=== PATIENT | female | born 1935 | race Caucasian/White ===

== ENCOUNTER 2016-04-04 10:33 | Emergency (ER) | payer MEDICARE, OTHER ==
--- NOTE | 2016-04-04 12:32 | EDDOCDS ---
Nurse's Notes [facility] Name: Portia Clemons Age: 80 yrs Sex: Female : 1935 Arrival Date: 04/04/2016 Time: 10:33 Bed TR8 Private MD: Alexis Lombardi A. Diagnosis: Acute upper respiratory infection, unspecified;Acute bronchospasm-bronchitis;Abnormal blood-pressure reading, without diagnosis Presentation: 04/04 10:45 Presenting complaint: Presenting complaint: Patient states: c/o "chest cold" since ead Monday. reports cough, non-productive, nasal congestion. 10:46 Adult Sepsis Screening: The patient does not have new or worsening altered mentation. ead Patient's respiratory rate is less than 22. Systolic blood pressure is greater than 100. Patient has a qSOFA score of 0- Negative Sepsis Screen. Suicide/Homicide risk assessment- the patient denies having any suicidal and/or homicidal ideations and does not present with any other emotional, behavioral or mental health complaints. Status: Patient is not a chief service dispatcher or dependent. Transition of care: patient was not received from another setting of care. 10:46 Acuity: ARIANNA Level 4 ead 10:46 Method Of Arrival: Walkin/Carried/Asstd ead Triage Assessment: 10:51 General: Appears in no apparent distress, comfortable, Behavior is appropriate for age, ead cooperative. Pain: Denies pain. Neurological: No deficits noted. Cardiovascular: Chest pain is denied. Respiratory: Onset: The symptoms/episode began/occurred 3 days ago, Reports cough that is non-productive, Denies shortness of breath. Derm: Skin is pink, warm & dry. Historical: - Allergies: no known allergies; - Home Meds: 1. Lipitor 10 mg Oral tab once daily 2. Jana Aspirin 325 mg oral tab 1 tab once daily 3. calcitonin (salmon) 200 unit/actuation nasal spry 1 spray daily 4. Vitamin D Oral 2000 unit daily 5. calcium 500 mg daily 6. Nexium 40 mg Oral cpDR once daily - PMHx: Hypertension; Hypercholesterolemia; - PSHx: Adenoidectomy; Tonsillectomy; Cholecystectomy; Hysterectomy; - Social history: Smoking status: Patient states former smoker of tobacco. No barriers to communication noted, The patient speaks fluent Lao, Speaks appropriately for age. - Family history: Not pertinent. - : The pt / caregiver states he / she is not on anticoagulants. Home medication list is obtained from the patient, [employer] import data. - Exposure Risk Screening:: None identified. Screenin:29 Screening information is obtained from the patient. Fall risk: No risks identified. ms18 Assistance ADL's: requires no assistance with activities of daily living. Abuse/DV Screen: The patient / caregiver reports he/she is: not in a situation that causes fear, pain or injury. Nutritional screening: No deficits noted. Advance Directives: There is no living will. home support is adequate. Assessment: 12:29 General: Appears in no apparent distress, comfortable, Behavior is appropriate for age, ms18 cooperative, pleasant. Pain: Denies pain. Neurological: Level of Consciousness is awake, alert, obeys commands, Oriented to person, place, time. EENT: Reports nasal congestion nasal discharge. Cardiovascular: Capillary refill < 3 seconds Chest pain is denied. Respiratory: Airway is patent Respiratory effort is even, unlabored, Breath sounds are clear bilaterally. Reports cough that is. Derm: Skin is pink, warm & dry. Vital Signs: 10:35 BP 188 / 86; Pulse 77; Resp 18 S; Temp 96.7(O); Pulse Ox 97% on R/A; Weight 63.5 kg dd6 (R); Height 5 ft. 2 in. (157.48 cm) (R); 11:50 BP 170 / 90 RA Sitting (man/reg); ar3 10:35 Body Mass Index 25.61 (63.50 kg, 157.48 cm) dd6 Vitals: 10:35 Log In Time: April 04, 2016 at 10:33. dd6 ED Course: 10:35 Patient visited by Marin Alexis PCA. dd6 10:35 Alexis Lombardi is Private Physician. dd6 10:35 Patient moved to Waiting dd6 10:36 Patient moved to Pre RCE dd6 10:47 Triage Initiated ead 11:12 Patient moved to Triage 2 ms18 11:31 [facility]ost[facility]. ar2 11:31 Erin Figueredo MD is Attending Physician. ar2 11:31 Patient visited by Aashish Crisostomo PA-C. ar2 11:50 Patient visited by Cydney Garza PCA. ar3 12:21 Alexis Lombardi is Referral Physician. ar2 12:29 Patient moved to TR8 ms18 12:29 The patient / caregiver is instructed regarding the plan of care and ED course. ms18 Accompanied by Family Member, Patient has correct armband on for positive identification. Property sent home with patient. :Personal belongings accompany Pt. 12:29 No IV's were initiated during this patient's visit. No procedures done that require ms18 assistance. Order Results: There are currently no results for this order. Outcome: 12:21 Discharge ordered by Provider. ar2 12:29 Discharge Assessment: Patient awake, alert and oriented x 3. No cognitive and/or ms18 functional deficits noted. Patient verbalized understanding of disposition instructions. patient administered narcotics - no. The following High Risk Discharge criteria are identified: None. Discharged to home ambulatory. Condition: good Condition: stable Condition: improved. Discharge instructions given to patient, Instructed on discharge instructions, follow up and referral plans. medication usage, Demonstrated understanding of instructions, medications, Pt was receptive of discharge instructions/ teaching. Prescriptions given X 4. No special radiology studies were completed. 12:31 Patient left the ED. ms18 Signatures: Aashish Crisostomo PA-C PA-C ar2 Marin Alexis, FISH EGG PACKER FISH EGG PACKER dd6 Cydney Garza, FISH EGG PACKER FISH EGG PACKER ar3 Ira Sethi,RN Margarette Zuleta RN RN ms18 Corrections: (The following items were deleted from the chart) 10:47 10:45 Presenting complaint: ead ead MTDMehran
--- NOTE | 2016-04-04 12:32 | EDDOCDS ---
Physician Documentation [facility] Name: Portia Clemons Age: 80 yrs Sex: Female : 1935 Arrival Date: 04/04/2016 Time: 10:33 Bed TR8 Private MD: Alexis Lombardi A. Disposition: 04/04/16 12:21 Discharged to Home/Self Care. Impression: Acute upper respiratory infection, unspecified, Acute bronchospasm - bronchitis, Abnormal blood-pressure reading, without diagnosis. - Condition is Stable. - Discharge Instructions: Acute Bronchitis, Upper Respiratory Infection, Adult, Managing Your High Blood Pressure. - Prescriptions for Mucinex 600 mg - take 1 tablet by ORAL route 2 times per day; 30 tablet. benzonatate 200 mg Oral Capsule - take 1 capsule by ORAL route 3 times per day As needed; 30 capsule. Fluticasone 50 mcg/actuation Nasal [place], Suspension - inhale 2 spray by INTRANASAL route once daily; 1 bottle. Albuterol Sulfate 90 mcg/actuation Inhalation HFA Aerosol Inhaler - inhale 2 puff by INHALATION route every 4 hours As needed; 1 Inhaler. - Medication Reconciliation, Local Pharmacy Hours form. - Follow up: Alexis Lombardi; When: 2 - 3 days; Reason: Recheck today's complaints, Continuance of care. Follow up: Emergency Department; When: As needed; Reason: Fever > 102F, Trouble breathing, Worsening of conditions, severe headache, blurry vision, chest pain. - Problem is new. - Symptoms are unchanged. - Notes: AVOID ALL DECONGESTANTS AT THIS TIME Historical: - Allergies: no known allergies; - Home Meds: 1. Lipitor 10 mg Oral tab once daily 2. Jana Aspirin 325 mg oral tab 1 tab once daily 3. calcitonin (salmon) 200 unit/actuation nasal spry 1 spray daily 4. Vitamin D Oral 2000 unit daily 5. calcium 500 mg daily 6. Nexium 40 mg Oral cpDR once daily - PMHx: Hypertension; Hypercholesterolemia; - PSHx: Adenoidectomy; Tonsillectomy; Cholecystectomy; Hysterectomy; - Social history: Smoking status: Patient states former smoker of tobacco. No barriers to communication noted, The patient speaks fluent Finnish, Speaks appropriately for age. - Family history: Not pertinent. - : The pt / caregiver states he / she is not on anticoagulants. Home medication list is obtained from the patient, [employer] import data. - Exposure Risk Screening:: None identified. Vital Signs: 04/04 10:35 BP 188 / 86; Pulse 77; Resp 18 S; Temp 96.7(O); Pulse Ox 97% on R/A; Weight 63.5 kg / dd6 139.99 lbs (R); Height 5 ft. 2 in. (157.48 cm) (R); 11:50 BP 170 / 90 RA Sitting (man/reg); ar3 10:35 Body Mass Index 25.61 (63.50 kg, 157.48 cm) dd6 MDM: 11:45 Vital Signs ordered. ar2 12:00 Financial registration complete. lg Signatures: Imani Fountain, Reg Reg lg Aashish Crisostomo PA-C PA-C ar2 Ira Sethi,RN RN ead Margarette KimRN RN ms18 MTDD
--- NOTE | 2016-04-06 13:32 | EDDOCDS ---
Physician Documentation [facility] Name: Portia Clemons Age: 80 yrs Sex: Female : 1935 Arrival Date: 04/04/2016 Time: 10:33 Bed TR8 Private MD: Alexis Lombardi A. Disposition: 04/04/16 12:21 Discharged to Home/Self Care. Impression: Acute upper respiratory infection, unspecified, Acute bronchospasm - bronchitis, Abnormal blood-pressure reading, without diagnosis. - Condition is Stable. - Discharge Instructions: Acute Bronchitis, Upper Respiratory Infection, Adult, Managing Your High Blood Pressure. - Prescriptions for Mucinex 600 mg - take 1 tablet by ORAL route 2 times per day; 30 tablet. benzonatate 200 mg Oral Capsule - take 1 capsule by ORAL route 3 times per day As needed; 30 capsule. Fluticasone 50 mcg/actuation Nasal [place], Suspension - inhale 2 spray by INTRANASAL route once daily; 1 bottle. Albuterol Sulfate 90 mcg/actuation Inhalation HFA Aerosol Inhaler - inhale 2 puff by INHALATION route every 4 hours As needed; 1 Inhaler. - Medication Reconciliation, Local Pharmacy Hours form. - Follow up: Alexis Lombardi; When: 2 - 3 days; Reason: Recheck today's complaints, Continuance of care. Follow up: Emergency Department; When: As needed; Reason: Fever > 102F, Trouble breathing, Worsening of conditions, severe headache, blurry vision, chest pain. - Problem is new. - Symptoms are unchanged. - Notes: AVOID ALL DECONGESTANTS AT THIS TIME Historical: - Allergies: no known allergies; - Home Meds: 1. Lipitor 10 mg Oral tab once daily 2. Jnaa Aspirin 325 mg oral tab 1 tab once daily 3. calcitonin (salmon) 200 unit/actuation nasal spry 1 spray daily 4. Vitamin D Oral 2000 unit daily 5. calcium 500 mg daily 6. Nexium 40 mg Oral cpDR once daily - PMHx: Hypertension; Hypercholesterolemia; - PSHx: Adenoidectomy; Tonsillectomy; Cholecystectomy; Hysterectomy; - Social history: Smoking status: Patient states former smoker of tobacco. No barriers to communication noted, The patient speaks fluent Stateless, Speaks appropriately for age. - Family history: Not pertinent. - : The pt / caregiver states he / she is not on anticoagulants. Home medication list is obtained from the patient, [employer] import data. - Exposure Risk Screening:: None identified. Vital Signs: 04/04 10:35 BP 188 / 86; Pulse 77; Resp 18 S; Temp 96.7(O); Pulse Ox 97% on R/A; Weight 63.5 kg / dd6 139.99 lbs (R); Height 5 ft. 2 in. (157.48 cm) (R); 11:50 BP 170 / 90 RA Sitting (man/reg); ar3 10:35 Body Mass Index 25.61 (63.50 kg, 157.48 cm) dd6 MDM: 11:45 Vital Signs ordered. ar2 12:00 Financial registration complete. lg 13:39 [facility] Payment Agreement was scanned into [employer] and attached to record. lg 14:47 T-Sheet-- Draft Copy was scanned into [employer] and attached to record. gb Signatures: Latisha Alvarenga, Reg Reg gb Imani Fountain, Reg Reg lg Aashish Crisostomo PA-C PA-C ar2 Ira Sethi,RN RN Margarette Krueger RN RN ms18 The chart was reviewed and I authenticate all verbal orders and agree with the evaluation and treatment provided.Attachments: 13:39 [facility] Payment Agreement lg 14:47 T-Sheet-- Draft Copy gb Chart Complete MTDD
--- NOTE | 2016-04-06 13:32 | EDDOCDS ---
Physician Documentation [facility] Name: Portia Clemons Age: 80 yrs Sex: Female : 1935 Arrival Date: 04/04/2016 Time: 10:33 Bed TR8 Private MD: Alexis Lombardi A. Disposition: 04/04/16 12:21 Discharged to Home/Self Care. Impression: Acute upper respiratory infection, unspecified, Acute bronchospasm - bronchitis, Abnormal blood-pressure reading, without diagnosis. - Condition is Stable. - Discharge Instructions: Acute Bronchitis, Upper Respiratory Infection, Adult, Managing Your High Blood Pressure. - Prescriptions for Mucinex 600 mg - take 1 tablet by ORAL route 2 times per day; 30 tablet. benzonatate 200 mg Oral Capsule - take 1 capsule by ORAL route 3 times per day As needed; 30 capsule. Fluticasone 50 mcg/actuation Nasal [place], Suspension - inhale 2 spray by INTRANASAL route once daily; 1 bottle. Albuterol Sulfate 90 mcg/actuation Inhalation HFA Aerosol Inhaler - inhale 2 puff by INHALATION route every 4 hours As needed; 1 Inhaler. - Medication Reconciliation, Local Pharmacy Hours form. - Follow up: Alexis Lombardi; When: 2 - 3 days; Reason: Recheck today's complaints, Continuance of care. Follow up: Emergency Department; When: As needed; Reason: Fever > 102F, Trouble breathing, Worsening of conditions, severe headache, blurry vision, chest pain. - Problem is new. - Symptoms are unchanged. - Notes: AVOID ALL DECONGESTANTS AT THIS TIME Historical: - Allergies: no known allergies; - Home Meds: 1. Lipitor 10 mg Oral tab once daily 2. Jana Aspirin 325 mg oral tab 1 tab once daily 3. calcitonin (salmon) 200 unit/actuation nasal spry 1 spray daily 4. Vitamin D Oral 2000 unit daily 5. calcium 500 mg daily 6. Nexium 40 mg Oral cpDR once daily - PMHx: Hypertension; Hypercholesterolemia; - PSHx: Adenoidectomy; Tonsillectomy; Cholecystectomy; Hysterectomy; - Social history: Smoking status: Patient states former smoker of tobacco. No barriers to communication noted, The patient speaks fluent Russian, Speaks appropriately for age. - Family history: Not pertinent. - : The pt / caregiver states he / she is not on anticoagulants. Home medication list is obtained from the patient, [employer] import data. - Exposure Risk Screening:: None identified. Vital Signs: 04/04 10:35 BP 188 / 86; Pulse 77; Resp 18 S; Temp 96.7(O); Pulse Ox 97% on R/A; Weight 63.5 kg / dd6 139.99 lbs (R); Height 5 ft. 2 in. (157.48 cm) (R); 11:50 BP 170 / 90 RA Sitting (man/reg); ar3 10:35 Body Mass Index 25.61 (63.50 kg, 157.48 cm) dd6 MDM: 11:45 Vital Signs ordered. ar2 12:00 Financial registration complete. lg 13:39 [facility] Payment Agreement was scanned into [employer] and attached to record. lg 14:47 T-Sheet-- Draft Copy was scanned into [employer] and attached to record. gb Signatures: Latisha Alvarenga, Reg Reg gb Imani Fountain, Reg Reg lg Aashish Crisostomo PA-C PA-C ar2 Ira Sethi,RN RN Margarette Krueger RN RN ms18 The chart was reviewed and I authenticate all verbal orders and agree with the evaluation and treatment provided.Attachments: 13:39 [facility] Payment Agreement lg 14:47 T-Sheet-- Draft Copy gb Chart Complete MTDD
--- NOTE | 2016-04-06 13:32 | EDDOCDS ---
Nurse's Notes [facility] Name: Portia Clemons Age: 80 yrs Sex: Female : 1935 Arrival Date: 04/04/2016 Time: 10:33 Bed TR8 Private MD: Alexis Lombardi A. Diagnosis: Acute upper respiratory infection, unspecified;Acute bronchospasm-bronchitis;Abnormal blood-pressure reading, without diagnosis Presentation: 04/04 10:45 Presenting complaint: Presenting complaint: Patient states: c/o "chest cold" since ead Monday. reports cough, non-productive, nasal congestion. 10:46 Adult Sepsis Screening: The patient does not have new or worsening altered mentation. ead Patient's respiratory rate is less than 22. Systolic blood pressure is greater than 100. Patient has a qSOFA score of 0- Negative Sepsis Screen. Suicide/Homicide risk assessment- the patient denies having any suicidal and/or homicidal ideations and does not present with any other emotional, behavioral or mental health complaints. Status: Patient is not a client sales and service officer or dependent. Transition of care: patient was not received from another setting of care. 10:46 Acuity: ARIANNA Level 4 ead 10:46 Method Of Arrival: Walkin/Carried/Asstd ead Triage Assessment: 10:51 General: Appears in no apparent distress, comfortable, Behavior is appropriate for age, ead cooperative. Pain: Denies pain. Neurological: No deficits noted. Cardiovascular: Chest pain is denied. Respiratory: Onset: The symptoms/episode began/occurred 3 days ago, Reports cough that is non-productive, Denies shortness of breath. Derm: Skin is pink, warm & dry. Historical: - Allergies: no known allergies; - Home Meds: 1. Lipitor 10 mg Oral tab once daily 2. Jana Aspirin 325 mg oral tab 1 tab once daily 3. calcitonin (salmon) 200 unit/actuation nasal spry 1 spray daily 4. Vitamin D Oral 2000 unit daily 5. calcium 500 mg daily 6. Nexium 40 mg Oral cpDR once daily - PMHx: Hypertension; Hypercholesterolemia; - PSHx: Adenoidectomy; Tonsillectomy; Cholecystectomy; Hysterectomy; - Social history: Smoking status: Patient states former smoker of tobacco. No barriers to communication noted, The patient speaks fluent South African, Speaks appropriately for age. - Family history: Not pertinent. - : The pt / caregiver states he / she is not on anticoagulants. Home medication list is obtained from the patient, [employer] import data. - Exposure Risk Screening:: None identified. Screenin:29 Screening information is obtained from the patient. Fall risk: No risks identified. ms18 Assistance ADL's: requires no assistance with activities of daily living. Abuse/DV Screen: The patient / caregiver reports he/she is: not in a situation that causes fear, pain or injury. Nutritional screening: No deficits noted. Advance Directives: There is no living will. home support is adequate. Assessment: 12:29 General: Appears in no apparent distress, comfortable, Behavior is appropriate for age, ms18 cooperative, pleasant. Pain: Denies pain. Neurological: Level of Consciousness is awake, alert, obeys commands, Oriented to person, place, time. EENT: Reports nasal congestion nasal discharge. Cardiovascular: Capillary refill < 3 seconds Chest pain is denied. Respiratory: Airway is patent Respiratory effort is even, unlabored, Breath sounds are clear bilaterally. Reports cough that is. Derm: Skin is pink, warm & dry. Vital Signs: 10:35 BP 188 / 86; Pulse 77; Resp 18 S; Temp 96.7(O); Pulse Ox 97% on R/A; Weight 63.5 kg dd6 (R); Height 5 ft. 2 in. (157.48 cm) (R); 11:50 BP 170 / 90 RA Sitting (man/reg); ar3 10:35 Body Mass Index 25.61 (63.50 kg, 157.48 cm) dd6 Vitals: 10:35 Log In Time: April 04, 2016 at 10:33. dd6 ED Course: 10:35 Patient visited by Marin Alexis PCA. dd6 10:35 Alexis Lombardi is Private Physician. dd6 10:35 Patient moved to Waiting dd6 10:36 Patient moved to Pre RCE dd6 10:47 Triage Initiated ead 11:12 Patient moved to Triage 2 ms18 11:31 Aashish Crisostomo [facility]-C [facility]. ar2 11:31 Erin Figueredo MD is Attending Physician. ar2 11:31 Patient visited by Aashish Crisostomo PA-C. ar2 11:50 Patient visited by Cydney Garza PCA. ar3 12:21 Alexis Lombardi is Referral Physician. ar2 12:29 Patient moved to TR8 ms18 12:29 The patient / caregiver is instructed regarding the plan of care and ED course. ms18 Accompanied by Family Member, Patient has correct armband on for positive identification. Property sent home with patient. :Personal belongings accompany Pt. 12:29 No IV's were initiated during this patient's visit. No procedures done that require ms18 assistance. 13:39 [facility] Payment Agreement was scanned into [employer] and attached to record. lg 14:47 T-Sheet-- Draft Copy was scanned into [employer] and attached to record. gb Order Results: There are currently no results for this order. Outcome: 12:21 Discharge ordered by Provider. ar2 12:29 Discharge Assessment: Patient awake, alert and oriented x 3. No cognitive and/or ms18 functional deficits noted. Patient verbalized understanding of disposition instructions. patient administered narcotics - no. The following High Risk Discharge criteria are identified: None. Discharged to home ambulatory. Condition: good Condition: stable Condition: improved. Discharge instructions given to patient, Instructed on discharge instructions, follow up and referral plans. medication usage, Demonstrated understanding of instructions, medications, Pt was receptive of discharge instructions/ teaching. Prescriptions given X 4. No special radiology studies were completed. 12:31 Patient left the ED. ms18 Signatures: Latisha Alvarenga, Reg Reg gb Imani Fountain, Reg Reg lg Aashish Crisostomo, PA-Juan PA-C ar2 Marin Alexis, METAL LOADER METAL LOADER dd6 Cydney Garza, METAL LOADER METAL LOADER ar3 Ira SethiRN RN Margarette Krueger RN RN ms18 Corrections: (The following items were deleted from the chart) 10:47 10:45 Presenting complaint: ead markus Chart Complete MTDD
== END 2016-04-04 12:31 | disposition home or self-care (01) ==
LOC: M ED 10:33
DX: J20.9 Acute bronchitis, unspecified (principal); J06.9 Acute upper respiratory infection, unspecified; I10 Essential (primary) hypertension; E78.00 Pure hypercholesterolemia, unspecified; Z90.79 Acquired absence of other genital organ(s); Z90.49 Acquired absence of other specified parts of digestive tract; Z90.89 Acquired absence of other organs; Z87.891 Personal history of nicotine dependence; Z79.82 Long term (current) use of aspirin; Z79.899 Other long term (current) drug therapy

== ENCOUNTER → 2016-11-17 | Outpatient (CLI) | payer MEDICARE, OTHER ==
[2016-11-17 07:45] LABS: MEAN CORPUSCULAR HEMOGLOBIN 31.4 pg (27.0-33.0); MEAN CORPUSCULAR HGB CONC 34.1 g/dl (32.0-36.5); MEAN CORPUSCULAR VOLUME 91.9 fl (80.0-96.0); RED CELL DISTRIBUTION WIDTH 12.3 % (11.5-14.5); WHITE BLOOD COUNT 5.5 K/mm3 (4.0-10.0)
[2016-11-17 08:08] LABS: ALBUMIN 4.2 GM/DL (3.2-5.2); ALBUMIN/GLOBULIN RATIO 1.27 (1.00-1.93); ALKALINE PHOSPHATASE 52 U/L (45-117); ALT/SGPT 38 U/L (12-78); ANION GAP 7 MEQ/L (8-16); AST/SGOT 21 U/L (15-37); BILIRUBIN,TOTAL 0.4 MG/DL (0.2-1.0); BLOOD UREA NITROGEN 19 MG/DL (7-18); CALCIUM LEVEL 9.6 MG/DL (8.8-10.2); CARBON DIOXIDE LEVEL 32 MEQ/L (21-32); CHLORIDE LEVEL 107 MEQ/L (98-107); CHOLESTEROL LEVEL 160 MG/DL (<200); GLOMERULAR FILTRATION RATE > 60.0 (>32); GLUCOSE, FASTING 112 MG/DL (83-110); POTASSIUM SERUM 4.1 MEQ/L (3.5-5.1); SODIUM LEVEL 146 MEQ/L (136-145); TOTAL PROTEIN 7.5 GM/DL (6.4-8.2); TRIGLYCERIDES LEVEL 105 MG/DL (<150)
[2016-11-17 10:43] LABS: VITAMIN B12 LEVEL 397 PG/ML (247-911)
== END ==
LOC: M LAB 07:01
PROVIDERS: ATTEND Family Medicine
DX: E55.9 Vitamin D deficiency, unspecified (principal); E11.9 Type 2 diabetes mellitus without complications; E53.8 Deficiency of other specified B group vitamins

== ENCOUNTER → 2017-01-30 | Outpatient (CLI) | payer MEDICARE, OTHER ==
--- NOTE | 2017-02-01 13:06 | DEXA ---
AP SPINE L1 - L4 1.102 0.6 1.2 LT FEMUR TOTAL 0.840 -1.3 0.8 RT FEMUR TOTAL 0.817 -1.5 0.7 TOTAL BODY TOTAL OTHER DUAL FEMUR FRAX* ASSESSMENT Risk factors: 10 year probability of fracture Major osteoporotic fracture % Hip fracture % COMMENTS: Normal bone densitometry of the spine. There is low density of the hips. The density of the spine is decreased 3.1% since 07/22/2014. The density of the left hip has decreased 6.6% since 07/22/2014. The density of the right hip has decreased 2.5% since 07/22/2014. The decreased density of the spine does represent a significant change. The decreased density of the left hip does represent a significant change. The decreased density of the right hip does represent a significant change. FOLLOW-UP: Recommendation for the next bone density exam: 2 years. RHYS
== END ==
LOC: M WHC 14:25
PROVIDERS: ATTEND Family Medicine
DX: M81.0 Age-related osteoporosis without current pathological fracture (principal)

== ENCOUNTER → 2017-07-18 | Outpatient (CLI) | payer MEDICARE, OTHER ==
[2017-07-18 12:05] LABS: BASO # 0.1 10^3/uL (0.0-0.2); BASO % 0.9 % (0.0-1.0); EOS # 0.1 10^3/uL (0.0-0.50); EOS % 1.9 % (0.0-3.0); HEMOGLOBIN 14.6 g/dl (12.0-15.5); IMMATURE GRANULOCYTE % 0.1 % (0-3.0); LYMPH # 2.6 10^3/uL (1.5-4.5); LYMPH % 39.1 % (24.0-44.0); MEAN CORPUSCULAR HEMOGLOBIN 31.7 pg (27.0-33.0); MEAN CORPUSCULAR VOLUME 93.3 fl (80.0-96.0); MONO # 0.3 10^3/uL (0.0-0.8); MONO % 4.6 % (0.0-5.0); NEUTROPHILS # 3.6 10^3/uL (1.8-7.7); NEUTROPHILS % 53.4 % (36.0-66.0); PLATELET COUNT, AUTOMATED 295 10^3/uL (150-450); RED BLOOD COUNT 4.61 10^6/uL (4.00-5.40); RED CELL DISTRIBUTION WIDTH 12.6 % (11.5-14.5); WHITE BLOOD COUNT 6.8 10^3/uL (4.0-10.0)
[2017-07-18 12:31] LABS: ALBUMIN 4.2 GM/DL (3.2-5.2); ALBUMIN/GLOBULIN RATIO 1.24 (1.00-1.93); ALKALINE PHOSPHATASE 58 U/L (45-117); ALT/SGPT 37 U/L (12-78); ANION GAP 4 MEQ/L (8-16); AST/SGOT 19 U/L (7-37); BILIRUBIN,TOTAL 0.4 MG/DL (0.2-1.0); BLOOD UREA NITROGEN 19 MG/DL (7-18); CALCIUM LEVEL 9.1 MG/DL (8.8-10.2); CARBON DIOXIDE LEVEL 34 MEQ/L (21-32); CHLORIDE LEVEL 107 MEQ/L (98-107); CHOLESTEROL LEVEL 145 MG/DL (<200); CHOLESTEROL RISK RATIO 3.295 (<5); CREATININE FOR GFR 0.62 MG/DL (0.55-1.30); GLOMERULAR FILTRATION RATE > 60.0 (>32); GLUCOSE, FASTING 113 MG/DL (70-100); HDL CHOLESTEROL 44 MG/DL (>40); LDL CHOLESTEROL 78.8 MG/DL (<100); NON-HDL-C 101 MG/DL; SODIUM LEVEL 145 MEQ/L (136-145); TOTAL PROTEIN 7.6 GM/DL (6.4-8.2); TRIGLYCERIDES LEVEL 111 MG/DL (<150)
[2017-07-18 12:38] LABS: TOTAL 25(OH) VITAMIN D 35.4 NG/ML (30.0-100.0); VITAMIN B12 LEVEL 773 PG/ML (247-911)
[2017-07-18 12:47] LABS: CREATININE, URINE 82.5 MG/DL; MALB URINE SIEMENS 32.8 MG/L; MAU/CREAT RATIO 39.7 MCG/MG (0.0-30.0)
[2017-07-18 13:16] LABS: ESTIMATED AVERAGE GLUCOSE 117 MG/DL (60-110); HEMOGLOBIN A1c 5.7 %
== END ==
LOC: M WUC 08:44
DX: E55.9 Vitamin D deficiency, unspecified (principal); E11.9 Type 2 diabetes mellitus without complications; E53.8 Deficiency of other specified B group vitamins
CPT/HCPCS: 82607

== ENCOUNTER → 2018-01-25 | Outpatient (CLI) | payer MEDICARE, OTHER | LOC: M RAD 09:41 | DX: Z12.31 Encounter for screening mammogram for malignant neoplasm of breast (principal); Z92.0 Personal history of contraception; Z80.41 Family history of malignant neoplasm of ovary; Z80.3 Family history of malignant neoplasm of breast | CPT/HCPCS: 77067 ==

== ENCOUNTER 2018-06-15 12:58 | Outpatient (RCR) | payer MEDICARE, OTHER ==
[2018-06-18] MEDS ORDERED: CALC20SPR (08:22)
[2018-06-18] MEDS ORDERED: VITA200016 PO (08:22)
[2018-06-18] MEDS ORDERED: CALC500T36 PO (08:22)
[2018-06-18] MEDS ORDERED: CRES5TAB PO (08:22)
[2018-06-18] MEDS ORDERED: NEXI40CA PO (08:22)
[2018-06-18] MEDS ORDERED: ASPI-222 PO (08:22)
[2018-06-18] MEDS ORDERED: LISI-542 PO (10:13)
== END 2018-06-17 | disposition home or self-care (01) ==
LOC: M PT 12:58
PROVIDERS: ATTEND Family Medicine
DX: Z51.89 Encounter for other specified aftercare (principal); R26.9 Unspecified abnormalities of gait and mobility

== ENCOUNTER 2018-06-18 08:12 | Emergency (ER) | payer MEDICARE, OTHER ==
[~2018-06-18] VITALS: Ht 157.5 cm; Wt 59.1 kg
[2018-06-18] MEDS ORDERED: ASPI-222 PO (08:22)
[2018-06-18] MEDS ORDERED: VITA200016 PO (08:22)
[2018-06-18] MEDS ORDERED: NEXI40CA PO (08:22)
[2018-06-18] MEDS ORDERED: CALC20SPR (08:22)
[2018-06-18] MEDS ORDERED: CRES5TAB PO (08:22)
[2018-06-18] MEDS ORDERED: CALC12504 PO (08:22)
--- NOTE | 2018-06-18 09:15 | REP ---
CT Head without contrast HISTORY: Trauma COMPARISON: None Areas of decreased attenuation are present in the periventricular white matter. This represents small-vessel ischemic disease. There is no intraparenchymal hemorrhage, acute infarct, mass or midline shift. A 7 mm pineal cyst is present. The ventricular system and cortical sulci are dilated consistent with minimal volume loss. There is no extra cerebral collection. There is no fracture. The visualized sinuses are clear. IMPRESSION: 1. Small vessel ischemic disease. 2. Minimal volume loss. Electronically Signed by Duke Hsuton MD 06/18/2018 09:06 A
[2018-06-18 09:18] LABS: BASO % 0.5 % (0.0-1.0); EOS # 0.1 10^3/uL (0.0-0.50); EOS % 1.1 % (0.0-3.0); HEMATOCRIT 41.3 % (36.0-47.0); HEMOGLOBIN 13.7 g/dl (12.0-15.5); LYMPH # 2.3 10^3/uL (1.5-4.5); LYMPH % 28.5 % (24.0-44.0); MEAN CORPUSCULAR HEMOGLOBIN 30.8 pg (27.0-33.0); MEAN CORPUSCULAR HGB CONC 33.2 g/dl (32.0-36.5); MEAN CORPUSCULAR VOLUME 92.8 fl (80.0-96.0); MONO # 0.5 10^3/uL (0.0-0.8); MONO % 5.6 % (0.0-5.0); NEUTROPHILS # 5.1 10^3/uL (1.8-7.7); NEUTROPHILS % 63.8 % (36.0-66.0); PLATELET COUNT, AUTOMATED 295 10^3/uL (150-450); RED BLOOD COUNT 4.45 10^6/uL (4.00-5.40); WHITE BLOOD COUNT 8.1 10^3/uL (4.0-10.0)
[2018-06-18 09:57] LABS: BLOOD UREA NITROGEN 18 MG/DL (7-18); CARBON DIOXIDE LEVEL 32 MEQ/L (21-32); CHLORIDE LEVEL 106 MEQ/L (98-107); CREATININE FOR GFR 0.58 MG/DL (0.55-1.30); GLOMERULAR FILTRATION RATE > 60.0 (>32); GLUCOSE, FASTING 107 MG/DL (70-100); POTASSIUM SERUM 4.1 MEQ/L (3.5-5.1); SODIUM LEVEL 143 MEQ/L (136-145)
[2018-06-18] MEDS ORDERED: LISI-542 PO (10:13)
[2018-06-18 10:18] VITALS: BP 208/91
--- NOTE | 2018-06-19 21:42 | ECGEPIP ---
Stationary ECG Study [facility] - ED Test Date: 2018-06-18 Pat Name: GRETA YARBROUGH Department: Room: - Gender: F Customer Field Representative: : 1935 Requested By: Hattie Spicer Order Number: [id number] Reading MD: Jeffy Marcelo Measurements Intervals Elida Rate: 63 P: 55 VA: 161 QRS: 13 QRSD: 89 T: 29 QT: 399 QTc: 409 Interpretive Statements SINUS RHYTHM BASELINE ARTIFACT AFFECTS INTERPRETATION NO PRIORS FOR COMPARISON Electronically Signed On 06-19-2018 21:42:46 EDT by Jeffy Marcelo
== END 2018-06-18 10:25 | disposition home or self-care (01) ==
LOC: M ED 08:12
DX: I10 Essential (primary) hypertension (principal); E78.5 Hyperlipidemia, unspecified; Z87.891 Personal history of nicotine dependence; Z79.82 Long term (current) use of aspirin; Z79.899 Other long term (current) drug therapy

== ENCOUNTER 2018-07-13 07:50 | Outpatient (RCR) | payer MEDICARE, OTHER ==
[~2018-07-13 07:50] MED LIST: ASPI-222 PO; CALC12504 PO; CALC20SPR; CRES5TAB PO; LISI-542 PO; NEXI40CA PO; VITA200016 PO
== END 2018-07-17 ==
LOC: M PT 07:50
PROVIDERS: ATTEND Family Medicine
DX: R26.89 Other abnormalities of gait and mobility (principal)

== ENCOUNTER → 2018-07-16 | Outpatient (CLI) | payer MEDICARE, OTHER ==
[2018-07-16 17:55] LABS: BASO # 0.1 10^3/uL (0.0-0.2); BASO % 0.6 % (0.0-1.0); EOS # 0.1 10^3/uL (0.0-0.50); EOS % 1.1 % (0.0-3.0); HEMOGLOBIN 12.5 g/dl (12.0-15.5); LYMPH # 2.6 10^3/uL (1.5-4.5); LYMPH % 30.1 % (24.0-44.0); MEAN CORPUSCULAR HEMOGLOBIN 30.6 pg (27.0-33.0); MEAN CORPUSCULAR HGB CONC 32.1 g/dl (32.0-36.5); MEAN CORPUSCULAR VOLUME 95.6 fl (80.0-96.0); MONO # 0.4 10^3/uL (0.0-0.8); MONO % 4.8 % (0.0-5.0); NEUTROPHILS # 5.3 10^3/uL (1.8-7.7); PLATELET COUNT, AUTOMATED 380 10^3/uL (150-450); RED BLOOD COUNT 4.08 10^6/uL (4.00-5.40); WHITE BLOOD COUNT 8.5 10^3/uL (4.0-10.0)
[2018-07-16 18:00] LABS: ALBUMIN 3.9 GM/DL (3.2-5.2); ALT/SGPT 32 U/L (12-78); BILIRUBIN,TOTAL 0.4 MG/DL (0.2-1.0); BLOOD UREA NITROGEN 24 MG/DL (7-18); CALCIUM LEVEL 9.4 MG/DL (8.8-10.2); CARBON DIOXIDE LEVEL 32 MEQ/L (21-32); CHLORIDE LEVEL 105 MEQ/L (98-107); GLOMERULAR FILTRATION RATE > 60.0 (>32); GLUCOSE, FASTING 120 MG/DL (70-100); POTASSIUM SERUM 3.8 MEQ/L (3.5-5.1); SODIUM LEVEL 143 MEQ/L (136-145); TOTAL PROTEIN 6.9 GM/DL (6.4-8.2)
[2018-07-16 18:02] LABS: APPEARANCE, URINE HAZY (CLEAR); BACTERIA, URINE AUTO 2+ (NEGATIVE); BILIRUBIN, URINE AUTO NEGATIVE (NEGATIVE); BLOOD, URINE BLOOD NEGATIVE (NEGATIVE); COLOR, URINE YELLOW (YELLOW); GLUCOSE, URINE (UA) AUTO NEGATIVE (NEGATIVE); KETONE, URINE AUTO NEGATIVE (NEGATIVE); LEUKOCYTE ESTERASE, URINE AUTO 3+ (NEGATIVE); MUCUS, URINE SMALL (NEGATIVE); NITRITE, URINE AUTO POSITIVE (NEGATIVE); PROTEIN, URINE AUTO NEGATIVE (NEGATIVE); RBC, URINE AUTO 2 /HPF (0-3); SPECIFIC GRAVITY URINE AUTO 1.018 (1.002-1.035); SQUAMOUS EPITHELIAL CELL UR AU 4 /HPF (0-6); UROBILINOGEN, URINE AUTO 0.2 mg/dL (0.0-2.0); WBC, URINE AUTO 63 /HPF (0-3)
[2018-07-16 18:03] LABS: TOTAL 25(OH) VITAMIN D 43.1 NG/ML (30.0-100.0); VITAMIN B12 LEVEL 1142 PG/ML (247-911)
[2018-07-16 19:13] LABS: HEMOGLOBIN A1c 6.2 %
== END ==
LOC: M WUC 13:14
PROVIDERS: ATTEND Family Medicine
DX: E55.9 Vitamin D deficiency, unspecified (principal); E11.9 Type 2 diabetes mellitus without complications; E53.8 Deficiency of other specified B group vitamins; I10 Essential (primary) hypertension

== ENCOUNTER 2018-08-03 07:55 | Outpatient (RCR) | payer MEDICARE, OTHER ==
[~2018-08-03 07:55] MED LIST changes: -CALC12504 PO; +CALC500T61 PO
== END 2018-08-17 ==
LOC: M PT 07:55
PROVIDERS: ATTEND Family Medicine
DX: R26.89 Other abnormalities of gait and mobility (principal)

== ENCOUNTER → 2019-03-25 | Outpatient (CLI) | payer MEDICARE, OTHER ==
[~2019-03-25] MED LIST changes: -ASPI-222 PO; +ASPI-527 PO
--- NOTE | 2019-03-25 11:35 | REPMRS ---
Patient History The patient states she has not had a clinical breast exam in over a year. Family history of breast cancer at age 80 in sister, breast cancer at age 62 in sister, ovarian cancer at age 40 in daughter. Took hormonal contraceptives for 5 years. Digital Woman Screen Mammo: March 25, 2019 - Exam #: [id number] Bilateral CC and MLO view(s) were taken. Technologist: Krystle Marrufo, Technologist Prior study comparison: January 25, 2018, bilateral digital mammo screening bilat, performed at [facility]. January 23, 2017, bilateral digital mammo screening bilat, performed at [facility]. July 22, 2014, digital woman screen mammo performed at [facility]. FINDINGS: There are scattered fibroglandular densities. There has been no change in the appearance of the mammogram from the prior studies. There is a mild amount of scattered fibroglandular density which is fairly symmetric. There is no interval development of dominant mass, architectural distortion, or grouped microcalcification suggestive of malignancy. 3-D tomosynthesis shows no additional findings. Assessment: BI-RADS/ACR category 1 mammogram. Negative Mammogram. Recommendation Routine screening mammogram of both breasts in 1 year (for women over age 40). This mammogram was interpreted with the aid of an FDA-approved computer-aided dectection system. Electronically Signed By: Anjum Eldridge MD 03/25/19 [id number]
== END ==
LOC: M WHC 09:36
PROVIDERS: ATTEND Family Medicine
DX: Z12.31 Encounter for screening mammogram for malignant neoplasm of breast (principal); Z80.3 Family history of malignant neoplasm of breast

== ENCOUNTER → 2020-03-26 | Outpatient (CLI) | payer MEDICARE, OTHER ==
--- NOTE | 2020-03-26 11:37 | REPMRS ---
Patient History The patient states she had a clinical breast exam in 03/2020 Family history of breast cancer at age 80 in sister, breast cancer at age 62 in sister, ovarian cancer at age 40 in daughter. Took hormonal contraceptives for 5 years. 3D TOMOSYNTHESIS WAS PERFORMED. Volpara breast density b. Digital Woman Screen Mammo: March 26, 2020 - Exam #: [id number] Bilateral CC and MLO view(s) were taken. Technologist: Lydia Coronado, Technologist Prior study comparison: March 25, 2019, bilateral digital woman screen mammo performed at [facility]. January 25, 2018, bilateral digital mammo screening bilat, performed at [facility]. FINDINGS: There are scattered fibroglandular densities. There has been no change in the appearance of the mammogram from the prior studies. There is a mild amount of residual fibroglandular tissue which is fairly symmetric. There is no interval development of dominant mass, architectural distortion, or clustered microcalcification suggestive of malignancy. Assessment: BI-RADS/ACR category 1 mammogram. Negative Mammogram. Recommendation Routine screening mammogram in 1 year (for women over age 40). This mammogram was interpreted with the aid of an FDA-approved computer-aided dectection system. Electronically Signed By: Luigi Husain MD 03/26/20 [id number]
== END ==
LOC: M WHC 10:57
PROVIDERS: ATTEND Internal Medicine
DX: Z12.31 Encounter for screening mammogram for malignant neoplasm of breast (principal)

== ENCOUNTER 2020-04-10 17:11 | Emergency (ER) | payer MEDICARE, OTHER ==
[~2020-04-10] VITALS: Ht 157.5 cm; Wt 68.1 kg
[~2020-04-10 17:11] MED LIST changes: -LISI-542 PO; +LISI-898 PO
[2020-04-10 18:42] LABS: BASO # 0.1 10^3/uL (0.0-0.2); BASO % 0.8 % (0.0-1.0); EOS # 0.1 10^3/uL (0.0-0.5); EOS % 1.5 % (0.0-3.0); HEMATOCRIT 42.9 % (36.0-47.0); LYMPH # 2.9 10^3/uL (1.5-5.0); LYMPH % 31.2 % (24.0-44.0); MEAN CORPUSCULAR HEMOGLOBIN 29.6 pg (27.0-33.0); MEAN CORPUSCULAR HGB CONC 32.6 g/dl (32.0-36.5); MEAN CORPUSCULAR VOLUME 90.7 fl (80.0-96.0); MONO # 0.6 10^3/uL (0.0-0.8); MONO % 6.4 % (0.0-5.0); NEUTROPHILS # 5.5 10^3/uL (1.5-8.5); NEUTROPHILS % 59.8 % (36.0-66.0); PLATELET COUNT, AUTOMATED 298 10^3/uL (150-450); RED BLOOD COUNT 4.73 10^6/uL (4.00-5.40); WHITE BLOOD COUNT 9.2 10^3/uL (4.0-10.0)
[2020-04-10 19:07] LABS: BILIRUBIN,DIRECT 0.1 MG/DL (0.0-0.2); BILIRUBIN,TOTAL 0.3 MG/DL (0.2-1.0); TOTAL PROTEIN 7.1 GM/DL (6.4-8.2)
--- NOTE | 2020-04-10 19:12 | REPVR ---
PROCEDURE INFORMATION: Exam: US Pelvis Limited, Transabdominal Exam date and time: 04/10/2020 6:39 PM Age: 84 years old Clinical indication: Pelvic pain; Additional info: Urinary frequency/pain at urethra, pelvic pressure TECHNIQUE: Imaging protocol: Real-time transabdominal pelvic ultrasound with image documentation. Limited exam. COMPARISON: No relevant prior studies available. FINDINGS: Urinary bladder: Unremarkable appearance of the bladder. Pre voiding urine volume 327 cc. Postvoid urine volume 306 cc. Bilateral ureteral jets demonstrated. IMPRESSION: Unremarkable appearance of the bladder however there is significant postvoiding residual urine volume. Electronically signed by: Carlo Raman On 04/10/2020 19:12:32 PM
[2020-04-10] MEDS ORDERED: LIDOCAINE 2% 5ML JELLY UROJET TOP ONE (19:30)
[2020-04-10 20:07] VITALS: BP 148/90
== END 2020-04-10 20:30 | disposition home or self-care (01) ==
LOC: M ED 17:11
DX: R33.9 Retention of urine, unspecified (principal); E78.5 Hyperlipidemia, unspecified; F03.90 Unspecified dementia, unspecified severity, without behavioral disturbance, psychotic disturbance, mood disturbance, and anxiety

== ENCOUNTER 2020-04-19 08:51 | Emergency (ER) | payer MEDICARE, OTHER ==
[~2020-04-19] VITALS: Ht 157.5 cm; Wt 65.2 kg
[~2020-04-19 08:51] MED LIST changes: +LISI-542 PO; -LISI-898 PO
--- OUTSIDE RECORDS SUMMARY | 2020-04-19 08:58 | CCD | Continuity of Care Document ---
Author Author Portia Batres MD Organization Unknown Address [address] [facility] [address] [place] [address] Phone [phone] Care Team Providers Care Central Sterile Technician Name Role Phone Waqas Batres JR, MD AUTM Unavailable Problems Active Problems Provider Date Type 2 diabetes mellitus Waqas Batres MD Onset: 2019 Social History Type Date Description Comments Sex Unknown ETOH Use Denies alcohol use Tobacco Use Start: Unknown Patient has never smoked smoked for 15yrs Allergies, Adverse Reactions, Alerts Description No Known Drug Allergies Medications Active Medications SIG Qnty Indications Ordering Provide r Date Atorvastatin Calcium 10mg Tablets 1 by mouth every day 90tabs Waqas Batres MD 05/15/[address] 1 by mouth every day Waqas Batres MD 05/15/2019 Shingrix 50mcg/0.5ML Suspension Re c administer 0.5 milliliters intramuscular, repeat in 2 to 6 months 2units Waqas Batres MD 05/15/2019 Immunizations CPT Code Status Date Vaccine Lot # U-Flu Given 12/28/2017 Influenza,Unspecified U-Flu Given 12/18/2016 Influenza,Unspecified Vital Signs Date Vital Result Comment 03/04/2020 10:26am BP Systolic 124 mmHg BP Diastolic 78 mmHg Heart Rate 80 /min Height 62 inches 5'2" Weight 147.00 lb BMI (Body Mass Index) 26.9 kg/m2 09/05/2019 8:48am BP Systolic 120 mmHg BP Diastolic 62 mmHg Height 62 inches 5'2" Weight 132.00 lb BMI (Body Mass Index) 24.1 kg/m2 Results Test Acquired Date Facility Test Result H/L Range Note Complete Blood Count 03/04/2020 [facility] Brass Burnisher: [place] [address] [phone] WBC 8.7 x10*3/UL 4.1 - 10.9 RBC 4.71 x10*6/UL 4.20 - 6.30 Hemoglobin 14.4 g/dL 12.0 - 18.0 Hematocrit 40.6 % 37.0 - 51.0 MCV 86.1 fL 80.0 - 97.0 MCH 30.7 pg 26.0 - 32.0 MCHC 35.6 g/dL 31.0 - 38.0 RDW 12.5 % 11.6 - 13.7 PLT 299 x10*3/UL 140 - 440 MPV 7.2 FL Low 7.8 - 11.0 Lymph % 25.9 % 10.0 - 58.5 Mid % 5.9 % 1.7 - 9.3 Neut % 68.2 % 37.0 - 92.0 Lymph # 2.2 x10*3/UL 0.6 - 4.1 Mid # 0.6 x10*3/UL 0.1 - 0.6 Neut # 5.9 x10*3/UL 2.0 - 7.8 A1c 03/04/2020 [facility] , Brass Burnisher: Dr [place] [address] [phone] Hba1c 6.0 % High <5.7 1 Est Avg Glucose 125 mg/dL High 60 - 110 Comprehensive Chem Profile 03/04/2020 [facility], Brass Burnisher: [place] [address] [phone] Glucose 101 mg/dL High 74 - 99 2 BUN 18 mg/dL 7 - 18 Creatinine 0.7 mg/dL 0.6 - 1.3 Sodium 145 mEq/L 136 - 145 Potassium 4.2 mEq/L 3.5 - 5.1 Chloride 106 mEq/L 98 - 107 Carbon Dioxide 32 mEq/L 21 - 32 Calcium 9.1 mg/dL 8.5 - 10.1 Alk. Phosphatase 73 mg/dL 46 - 116 Total Bilirubin 0.5 mg/dL 0.2 - 1.0 Ast (Sgot) 16 U/L 15 - 37 Alt (SGPT) 30 U/L 12 - 78 Albumin 3.8 g/dL 3.4 - 5.0 Total Protein 7.0 g/dL 6.4 - 8.2 A/G Ratio 1.19 CALC 1.00 - 1.90 GFR >= 60 mL/min >60 GFR >= 60 mL/min >60 3 1 Lab Result Notes: Pre-Diabetes 5.7 - 6.4 % Diabetes = or > 6.5% 2 100-125 mg/dL PRE-DIABET ES/FASTING >126 mg/dL DIABETES/FASTING 3 CHRONIC KIDNEY DISEASE STAGI NG PER NKF STAGE I & II GFR >= 60 NORMAL TO MILDLY DECREASED STAGE III GFR 30-59 MODERATELY DECREASED STAGE IV GFR 15-29 SEVERELY DECREASED STAGE V GFR <15 VERY LITTLE GFR LEFT ESRD GFR <15 ON SALON DESIGNER Procedures Date Code Description Status 03/25/2019 [id number] Mammogram Completed 01/30/2017 [id number] Bone Mineral Density Test Comple shelbie 11/11/2008 [id number] Colonoscopy Completed Medical Devices Description No Information Available Encounters Type Date Location Provider Dx Diagnosis Office Visit 03/04/2020 10:20a [facility] Waqas Batres MD G30.1 Alzheimer's disease with late onset F02.80 Dementia in oth diseases cla ssd elswhr w/o behavrl disturb E11.9 Type 2 diabetes mellitus wit hout complications I10 Essential (primary) hyperten josé miguel E78.00 Pure hypercholesterolemia, u nspecified Assessments Date Code Description Provider 03/04/2020 G30.1 Alzheimer's disease with late on set Waqas Batres MD 03/04/2020 F02.80 Dementia in other di seases classified elsewhere without behavioral disturbance Waqas Batres MD 03/04/2020 E11.9 Type 2 diabetes mellitus without complications Waqas Batres MD 03/04/2020 I10 Essential (primary) hypertension Waqas Batres MD 03/04/2020 E78.00 Pure hypercholesterolemia, unspe cified Waqas Batres MD Plan of Treatment Future Appointment(s):* 09/11/2020 10:20 am - Waqas Batres MD at [facility] * 09/11/2020 10:00 am - Nurse #2 at [facility] 03/04/2020 - Waqas Batres MD* G30.1 Alzheimer's disease with late onset * F02.80 Dementia in other diseases classified elsewhere without behavioral disturbance * E11.9 Type 2 diabetes mellitus without complications * I10 Essential (primary) hypertension* Comments:* Hypertension at [facility]-8 guidelines * E78.00 Pure hypercholesterolemia, unspecified Functional Status Description No Information Available Mental Status Description No Information Available Referrals Description No Information Available
--- OUTSIDE RECORDS SUMMARY | 2020-04-19 08:58 | CCD ---
Author Author [facility] Organization [facility] Address Unknown Phone Unavailable Care Team Providers Care Glass Calibrator Name Role Phone Berkley Batres MD Unavailable Unavailable Berkley Batres MD Unavailable Unavailable Berkley Batres MD Unavailable Unavailable Berkley Batres MD Unavailable Unavailable Berkley Batres MD Unavailable Unavailable Berkley Batres MD Unavailable Unavailable Berkley Batres MD Unavailable Unavailable Berkley Batres MD Unavailable Unavailable Berkley Batres MD Unavailable Unavailable Berkley Batres MD Unavailable Unavailable Berkley Batres MD Unavailable Unavailable Berkley Batres MD Unavailable Unavailable Berkley Batres MD Unavailable Unavailable Berkley Batres MD Unavailable Unavailable Berkley Batres MD Unavailable Unavailable Berkley Batres MD Unavailable Unavailable Berkley Batres MD Unavailable Unavailable Berkley Batres MD Unavailable Unavailable Berkley Batres MD Unavailable Unavailable Berkley Batres MD Unavailable Unavailable Berkley Batres MD Unavailable Unavailable Berkley Batres MD Unavailable Unavailable Berkley Batres MD Unavailable Unavailable Berkley Batres MD Unavailable Unavailable Berkley Batres MD Unavailable Unavailable Berkley Batres MD Unavailable Unavailable Berkley Batres MD Unavailable Unavailable Berkley Batres MD Unavailable Unavailable Berkley Batres MD Unavailable Unavailable Berkley Batres MD Unavailable Unavailable Berkley Batres MD Unavailable Unavailable Berkley Batres MD Unavailable Unavailable Berkley Batres MD Unavailable Unavailable Berkley Batres MD Unavailable Unavailable Berkley Batres MD Unavailable Unavailable RenoBerkley MD Unavailable Unavailable GiselBerkley MD Unavailable Unavailable GiselBerkley MD Unavailable Unavailable RenoBerkley MD Unavailable Unavailable GiselBerkley MD Unavailable Unavailable RenoBerkley MD Unavailable Unavailable RenoBerkley MD Unavailable Unavailable GiselBerkley MD Unavailable Unavailable GiselBerkley MD Unavailable Unavailable GiselBerkley MD Unavailable Unavailable GiselBerkley MD Unavailable Unavailable GiselBerkley MD Unavailable Unavailable GiselBerkley MD Unavailable Unavailable GiselBerkley MD Unavailable Unavailable RenoBerkley MD Unavailable Unavailable RenoBerkley MD Unavailable Unavailable GieslBerkley MD Unavailable Unavailable GiselBerkley MD Unavailable Unavailable RenoBerkley MD Unavailable Unavailable GiselBerkley MD Unavailable Unavailable GiselBerkley MD Unavailable Unavailable GiselBerkley MD Unavailable Unavailable RenoBerkley MD Unavailable Unavailable RenoBerkley MD Unavailable Unavailable GiselBerkley MD Unavailable Unavailable RenoBerkley MD Unavailable Unavailable GiselBerkley MD Unavailable Unavailable RenoeBrkley MD Unavailable Unavailable GiselBerkley white MD Unavailable Unavailable GiselBerkley MD Unavailable Unavailable GiselBerkely MD Unavailable Unavailable GiselBerkley MD Unavailable Unavailable RenoBerkley MD Unavailable Unavailable GiselBerkley MD Unavailable Unavailable RenoBerkley white MD Unavailable Unavailable RenoBerkley white MD Unavailable Unavailable GiselBerkley white MD Unavailable Unavailable RenoBerkley white MD Unavailable Unavailable RenoBerkley white MD Unavailable Unavailable RenoBerkley MD Unavailable Unavailable RenoBerkley white MD Unavailable Unavailable RenoBerkley white MD Unavailable Unavailable RenoBerkley white MD Unavailable Unavailable RenoBerkley white MD Unavailable Unavailable GiselBerkley MD Unavailable Unavailable RenoBerkley MD Unavailable Unavailable GiselBerkley MD Unavailable Unavailable GiselBerkley MD Unavailable Unavailable RenoBerkley MD Unavailable Unavailable RenoBerkley white MD Unavailable Unavailable RenoBerkley MD Unavailable Unavailable Urban, Rosana SLUMBER ROOM ATTENDANT Unavailable Unavailable Urban, Rosana SLUMBER ROOM ATTENDANT Unavailable Unavailable Urban, Rosana SLUMBER ROOM ATTENDANT Unavailable Unavailable Urban, Rosana SLUMBER ROOM ATTENDANT Unavailable Unavailable Urban, Rosana SLUMBER ROOM ATTENDANT Unavailable Unavailable Urban, Rosana SLUMBER ROOM ATTENDANT Unavailable Unavailable Urban, Rosana SLUMBER ROOM ATTENDANT Unavailable Unavailable Urban, Rosana SLUMBER ROOM ATTENDANT Unavailable Unavailable Urban, Rosana SLUMBER ROOM ATTENDANT Unavailable Unavailable Urban, Rosana SLUMBER ROOM ATTENDANT Unavailable Unavailable Urban, Rosana SLUMBER ROOM ATTENDANT Unavailable Unavailable Urban, Rosana SLUMBER ROOM ATTENDANT Unavailable Unavailable Urban, Rosana SLUMBER ROOM ATTENDANT Unavailable Unavailable Urban, Rosana SLUMBER ROOM ATTENDANT Unavailable Unavailable Urban, Rosana SLUMBER ROOM ATTENDANT Unavailable Unavailable Urban, Rosana SLUMBER ROOM ATTENDANT Unavailable Unavailable Urban, Rosana SLUMBER ROOM ATTENDANT Unavailable Unavailable Urban, Rosana SLUMBER ROOM ATTENDANT Unavailable Unavailable Urban, Rosana SLUMBER ROOM ATTENDANT Unavailable Unavailable Urban, Rosana SLUMBER ROOM ATTENDANT Unavailable Unavailable Urban, Rosana SLUMBER ROOM ATTENDANT Unavailable Unavailable Urban, Rosana SLUMBER ROOM ATTENDANT Unavailable Unavailable Urban, Rosana SLUMBER ROOM ATTENDANT Unavailable Unavailable Urban, Rosana SLUMBER ROOM ATTENDANT Unavailable Unavailable Urban, Rosana SLUMBER ROOM ATTENDANT Unavailable Unavailable Urban, Rosana SLUMBER ROOM ATTENDANT Unavailable Unavailable Urban, Rosana SLUMBER ROOM ATTENDANT Unavailable Unavailable Re-disclosure Warning The records that you are about to access may contain information from federally-assisted alcohol or drug abuse programs. If such information is present, then the following federally mandated warning applies: This information has been disclosed to you from records protected by federal confidentiality rules (42 CFR part 2). The federal rules prohibit you from making any further disclosure of this information unless further disclosure is expressly permitted by the written consent of the person to whom it pertains or as otherwise permitted by 42 CFR part 2. A general authorization for the release of medical or other information is NOT sufficient for this purpose. The Federal rules restrict any use of the information to criminally investigate or prosecute any alcohol or drug abuse patient.The records that you are about to access may contain highly sensitive health information, the redisclosure of which is protected by Article 27-F of the [place] State Public Health law. If you continue you may have access to information: Regarding HIV / AIDS; Provided by facilities licensed or operated by the [facility] Office of Mental Health; or Provided by the [facility] Office for People With Developmental Disabilities. If such information is present, then the following [facility] mandated warning applies: This information has been disclosed to you from confidential records which are protected by state law. State law prohibits you from making any further disclosure of this information without the specific written consent of the person to whom it pertains, or as otherwise permitted by law. Any unauthorized further disclosure in violation of state law may result in a fine or prison sentence or both. A general authorization for the release of medical or other information is NOT sufficient authorization for further disc losure. Family History Family Member Name Family Member Gender Family Member Status Date o f Status Description Data Source(s) Unknown Unknown Problem [facility] ([facility], [facility]) Encounters Encounter Providers Location Date Indications Data Source(s ) Outpatient Attender: Waqas Oakley 1 05/05/2019 09:20:00 AM EST [facility] ([facility] ) Outpatient Attender: Waqas Oakley 0 09/05/2019 09:00:00 AM EDT [facility] ([facility] ) Outpatient Attender: Rosana Oakley 10:00:00 AM EDT [facility] ([facility] ) Outpatient Attender: Waqas Oakley 0 05/15/2019 12:00:00 PM EST [facility] ([facility] ) Medications Medication Brand Name Start Date Product Form Dose Route Admi nistrative Instructions Pharmacy Instructions Status Indications Reaction Description Data Source(s) Shingrix Shingrix 05/15/2019 12:00:00 AM EST activ e [facility] ([facility]) Aspirin 325 MG Oral Tablet Aspirin 05/15/2019 12:00:00 AM EST ORAL completed [facility] ([facility]) Aspirin 81 MG Delayed Release Oral Tablet Aspirin 81 2019 12:00:00 AM EST ORAL active [facility] ( [facility]) Calcium Carbonate 1500 MG / Cholecalciferol 200 UNT Oral Tab let Calcium 600 + D 05/15/2019 12:00:00 AM EST ORAL completed [facility] ([facility]) Emergen-C Vitamin C 05/15/2019 12:00:00 AM EST completed [facility] ([facility]) Folic Acid 1 MG Oral Tablet Folic Acid 05/15/2019 12:00:00 AM EST ORAL completed [facility] ([facility]) Lisinopril 10 MG Oral Tablet Lisinopril 05/15/2019 12:00:00 AM EST ORAL completed [facility] ([facility]) Esomeprazole 20 MG Delayed Release Oral Capsule Esomeprazole Magnesium 05/15/2019 12:00:00 AM EST ORAL completed [facility] ([facility]) atorvastatin 10 MG Oral Tablet Atorvastatin Calcium 05/15/2019 1 2:00:00 AM EST ORAL active [facility] ( [facility]) Esomeprazole 40 MG Delayed Release Oral Capsule [Nexium] Nex ium 05/15/2019 12:00:00 AM EST ORAL completed [facility] ([facility]) Insurance Providers Payer name Policy type / Coverage type Policy ID Covered constitution party ID Covered constitution party's relationship to franklin Policy Franklin Plan Information [employer] [id number] SP [id number] MEDICARE [id number] SP [id number] MEDICARE [id number] SP [id number] [employer] [id number] SP [id number] MEDICARE [id number] SP [id number] A [employer] [id number] SP [id number] [employer] [id number] SP [id number] POMCO [id number] SP [id number] POMCO PPO O [id number] S [id number] MEDICARE C [id number] S [id number] A POMCO [id number] SP [id number] POM[employer] [id number] SP [id number] [place] Medigap Part B Self Medicare Natl Gov't Servi Medicare Primary Self [employer] [id number] SP [id number] Problems, Conditions, and Diagnoses Code Display Name Description Problem Type Effective Dates Data Source(s) [id number] Type 2 diabetes mellitus Type 2 diabetes mellitus Prob matias 08/14/2019 12:00:00 AM EDT [facility] ([facility]) Surgeries/Procedures Procedure Description Date Indications Data Source(s) ECG ROUTINE ECG W/LEAST 12 LDS W/I&R 05/15/2019 12:00: 00 AM EST [facility] ([facility]) Mammogram 03/25/2019 12:00:00 AM EST M [facility]ENT ([facility]) Results ID Date Data Source [id number] 03/04/2020 10:45:00 AM EST [facility] ([facility]) Name Value Range Interpretation Code Description Data Vidhya rce(s) Supporting Document(s) Urea nitrogen [Mass/volume] in Serum or Plasma 18 mg/dL 7-18 [facility] ([facility]) Glucose [Mass/volume] in Serum or Plasma 101 mg/dL 74-99 [facility] ([facility]) 100-125 mg/dL PRE-DIABETES/FASTING >126 mg/dL DIABETES/FASTING Creatinine 0.7 mg/dL 0.6-1.3 [facility] Chloride [Moles/volume] in Serum or Plasma 106 meq/L 98-107 [facility] ([facility]) Sodium [Moles/volume] in Serum or Plasma 145 meq/L 136-145 [facility] ([facility]) Potassium [Moles/volume] in Serum or Plasma 4.2 meq/L 3.5-5.1 [facility] ([facility]) Calcium [Mass/volume] in Serum or Plasma 9.1 mg/dL 8.5-10.1 [facility] ([facility]) Alkaline phosphatase isoenzyme [Units/volume] in Serum or Pl asma 73 mg/dL 46-116 [facility] ([facility]) Carbon dioxide, total [Moles/volume] in Serum or Plasma 32 meq/L 21 -32 [facility] ([facility]) Alanine aminotransferase [Enzymatic activity/volume] in Seru m or Plasma 30 U/L 12-78 [facility] ([facility]) Aspartate aminotransferase [Enzymatic activity/volume] in Serum or Plasma 16 U/L 15-37 [facility] ([facility] ) Total Bilirubin 0.5 mg/dL 0.2-1.0 [facility] ([facility]) Proteinase 3 Ab [Units/volume] in Serum 7.0 g/dL 6.4-8.2 [facility] ([facility]) A/G Ratio 1.19 CALC 1.00-1.90 [facility] ([facility]) Albumin [Mass/volume] in Serum or Plasma 3.8 g/dL 3.4-5.0 [facility] Glomerular filtration rate/1.73 sq M pre dicted among non-blacks [Volume Rate/Area] in Serum or Plasma by Creatinine-based formula (MDRD) Laboratory test result [facility] ([facility] ) Glomerular filtration rate/1.73 sq M pre dicted among blacks [Volume Rate/Area] in Serum or Plasma by Creatinine-based formula (MDRD) Laboratory test result [facility] ([facility]) <content>CHRONIC KIDNEY DISEASE STAGING PER NKF</content>
<content></content>
<content>STAGE I & II GFR >= 60 NORMAL TO MILDLY DECREASED</content>
<content>STAGE III GFR 30-59 MODERATELY DECREASED</content>
<content>STAGE IV GFR 15-29 SEVERELY DECREASED</content>
<content>STAGE V GFR <15 VERY LITTLE GFR LEFT</content>
<content>ESRD GFR <15 ON FIELD MARKETING COORDINATOR</content>
<content></content> ID Date Data Source [id number] 03/04/2020 10:45:[address] [facility] ([facility]) Name Value Range Interpretation Code Description Data Vidhya rce(s) Supporting Document(s) Hemoglobin A1c/Hemoglobin.total in Blood 6.0 % [facility] ([facility]) Lab Result Notes: Pre-Diabetes 5.7 - 6.4 % Diabetes = or > 6.5% Glucose mean value [Mass/volume] in Blood Estimated fr om glycated hemoglobin 125 mg/dL 60-110 [facility] ([facility] ) ID Date Data Source [id number] 03/04/2020 10:45:00 AM EST [facility]) Name Value Range Interpretation Code Description Data Vidhya rce(s) Supporting Document(s) Leukocytes [#/volume] in Blood by Automated count 8.7 x10*3/UL 4.1-[address] [facility] Hemoglobin [Mass/volume] in Blood 14.4 g/dL 12.0-18.0 [facility] ([facility]) Erythrocytes [#/volume] in Blood by Automated count 4.71 x10*6/UL 4.2 0-6.30 [facility] Hematocrit [Volume Fraction] of Blood by Automated count 40.6 % 3 7.0-51.0 [facility] ([facility]) MCV 86.1 fL 80.0-97.0 [facility] ([facility]) MCH 30.7 pg 26.0-32.0 [facility] ([facility]) MCHC 35.6 g/dL 31.0-38.0 [facility] ([facility]) MPV 7.2 FL 7.8-11.0 [facility] ([facility]) Platelets [#/volume] in Blood by Automated count 299 x10*3/UL 140-440 [facility] Erythrocyte distribution width [Ratio] by Automated count 12.5 % 11.6-13.7 [facility] ([facility]) Mid % 5.9 % 1.7-9.3 [facility]) Neut % 68.2 % 37.0-92.0 [facility] ([facility]) Lymph % 25.9 % 10.0-58.5 [facility] ([facility]) Mid # 0.6 x10*3/UL 0.1-0.6 [facility] ([facility]) Neut # 5.9 x10*3/UL 2.0-7.8 [facility] ([facility]) Lymph # 2.2 x10*3/UL 0.6-4.1 [facility] ([facility]) ID Date Data Source [id number] 03/04/2020 10:45:00 AM EST [facility] Name Value Range Interpretation Code Description Data Vidhya rce(s) Supporting Document(s) Hemoglobin A1c/Hemoglobin.total in Blood Laboratory [facility] ID Date Data Source [id number] 05/15/2019 09:38:00 AM EST [facility] ([facility]) Name Value Range Interpretation Code Description Data Vidhya rce(s) Supporting Document(s) Thyrotropin [Units/volume] in Serum or Plasma by Detec tion limit <= 0.05 mIU/L 1.98 uIU/mL 0.36-3.74 [facility] ([facility] ) ID Date Data Source [id number] 05/15/2019 09:38:00 AM EST [facility] ([facility]) Name Value Range Interpretation Code Description Data Vidhya rce(s) Supporting Document(s) Triglyceride [Mass/volume] in Serum or Plasma 92 mg/dL 30-150 [facility] ([facility]) Cholesterol [Mass/volume] in Serum or Plasma 156 mg/dL 131-200 [facility] ([facility]) Cholesterol in LDL [Mass/volume] in Serum or Plasma by calcu lation 87 CALC 50-159 [facility] ([facility]) Cholesterol in HDL [Mass/volume] in Serum or Plasma 51 mg/dL 35-60 [facility] ([facility]) ID Date Data Source [id number] 05/15/2019 09:38:00 AM EST [facility] ([facility]) Name Value Range Interpretation Code Description Data Vidhya rce(s) Supporting Document(s) Glucose [Mass/volume] in Serum or Plasma 119 mg/dL 74-99 [facility] ([facility]) 100-125 mg/dL PRE-DIABETES/FASTING >126 mg/dL DIABETES/FASTING Urea nitrogen [Mass/volume] in Serum or Plasma 22 mg/dL 7-18 [facility] ([facility]) Creatinine 0.7 mg/dL 0.6-1.3 [facility] Sodium [Moles/volume] in Serum or Plasma 144 meq/L 136-145 [facility] ([facility]) Potassium [Moles/volume] in Serum or Plasma 4.4 meq/L 3.5-5.1 [facility] ([facility]) Carbon dioxide, total [Moles/volume] in Serum or Plasma 31 meq/L 21 -32 [facility] ([facility]) Chloride [Moles/volume] in Serum or Plasma 107 meq/L 98-107 [facility] ([facility]) Calcium [Mass/volume] in Serum or Plasma 9.4 mg/dL 8.5-10.1 [facility] ([facility]) Total Bilirubin 0.5 mg/dL 0.2-1.0 [facility] ([facility]) Alkaline phosphatase isoenzyme [Units/volume] in Serum or Pl asma 62 mg/dL 46-116 [facility] ([facility]) Aspartate aminotransferase [Enzymatic activity/volume] in Serum or Plasma 16 U/L 15-37 [facility] ([facility] ) Alanine aminotransferase [Enzymatic activity/volume] in Seru m or Plasma 33 U/L 12-78 [facility] ([facility]) A/G Ratio 1.32 CALC 1.00-1.90 [facility]) Proteinase 3 Ab [Units/volume] in Serum 7.2 g/dL 6.4-8.2 [facility] ([facility]) Albumin [Mass/volume] in Serum or Plasma 4.1 g/dL 3.4-5.0 [facility] ([facility]) Glomerular filtration rate/1.73 sq M pre dicted among non-blacks [Volume Rate/Area] in Serum or Plasma by Creatinine-based formula (MDRD) Laboratory test [facility] Glomerular filtration rate/1.73 sq M pre dicted among blacks [Volume Rate/Area] in Serum or Plasma by Creatinine-based formula (MDRD) Laboratory test result [facility] ([facility]) <content>CHRONIC KIDNEY DISEASE STAGING PER NKF</content>
<content></content>
<content>STAGE I & II GFR >= 60 NORMAL TO MILDLY DECREASED</content>
<content>STAGE III GFR 30-59 MODERATELY DECREASED</content>
<content>STAGE IV GFR 15-29 SEVERELY DECREASED</content>
<content>STAGE V GFR <15 VERY LITTLE GFR LEFT</content>
<content>ESRD GFR <15 ON FIELD MARKETING COORDINATOR</content>
<content></content> ID Date Data Source [id number] 05/15/2019 09:38:00 AM EST [facility] ([facility]) Name Value Range Interpretation Code Description Data Vidhya rce(s) Supporting Document(s) Leukocytes [#/volume] in Blood by Automated count 8.6 x10*3/UL 4.1-10 .9 [facility] ([facility]) Hemoglobin [Mass/volume] in Blood 13.5 g/dL 12.0-18.0 [facility] Erythrocytes [#/volume] in Blood by Automated count 4.39 x10*6/UL 4.2 0-6.30 [facility] ([facility]) MCV 88.5 fL 80.0-97.0 [facility]) Hematocrit [Volume Fraction] of Blood by Automated count 38.9 % 3 7.0-51.0 [facility] ([facility]) MCH 30.7 pg 26.0-32.0 [facility]) Erythrocyte distribution width [Ratio] by Automated count 12.4 % 11.6-13.7 [facility] MCHC 34.7 g/dL 31.0-38.0 [facility] ([facility]) MPV 7.5 FL 7.8-11.0 [facility] ([facility]) Platelets [#/volume] in Blood by Automated count 303 x10*3/UL 140-440 [facility] ([facility]) Lymph % 23.2 % 10.0-58.5 [facility] ([facility]) Mid % 6.9 % 1.7-9.3 [facility] ([facility] Neut % 69.9 % 37.0-92.0 [facility] Mid # 0.6 x10*3/UL 0.1-0.6 [facility] ([facility]) Lymph # 2.0 x10*3/UL 0.6-4.1 [facility] ([facility]) Neut # 6.0 x10*3/UL 2.0-7.8 [facility] ([facility]) Procedure Vital Signs ID Date Data Source UNK Name Value Range Interpretation Code Description Data Source(s) Body mass index (BMI) [Ratio] 26.9 kg/m2 26.9 k g/m2 [facility] ([facility]) Body weight 147.00 [lb_av] 147.00 [lb_av] [facility] T ([facility]) Body height 62 [in_i] 62 [in_i] [facility] ([facility]) 5'2" Heart rate 80 /min 80 /min [facility] ([facility]) Diastolic blood pressure 78 mm[Hg] 78 mm[Hg] [facility] ([facility]) Systolic blood pressure 124 mm[Hg] 124 mm[Hg] [facility] ([facility]) Body mass index (BMI) [Ratio] 24.1 kg/m2 24.1 k g/m2 [facility] ([facility]) Body weight 132.00 [lb_av] 132.00 [lb_av] [facility] T ([facility]) Body height 62 [in_i] 62 [in_i] [facility] ([facility]) 5'2" Diastolic blood pressure 62 mm[Hg] 62 mm[Hg] [facility]) Systolic blood pressure 120 mm[Hg] 120 mm[Hg] [facility] ([facility]) Body mass index (BMI) [Ratio] 24.7 kg/m2 24.7 k g/m2 [facility] ([facility]) Body weight 135.00 [lb_av] 135.00 [lb_av] [facility] T ([facility]) Body height 62 [in_i] 62 [in_i] [facility] 5'2" Heart rate 66 /min 66 /min [facility] ([facility]) Diastolic blood pressure 60 mm[Hg] 60 mm[Hg] [facility] ([facility]) Systolic blood pressure 110 mm[Hg] 110 mm[Hg] [facility] ([facility]) Body mass index (BMI) [Ratio] 24.7 kg/m2 24.7 k g/m2 [facility] ([facility]) Body weight 135.00 [lb_av] 135.00 [lb_av] [facility] T ([facility]) Body height 62 [in_i] 62 [in_i] [facility] ([facility]) 5'2" Heart rate 82 /min 82 /min [facility] ([facility]) Diastolic blood pressure 78 mm[Hg] 78 mm[Hg] [facility] ([facility]) Systolic blood pressure 126 mm[Hg] 126 mm[Hg] Lito PADILLA ([facility])
--- OUTSIDE RECORDS SUMMARY | 2020-04-19 08:58 | CCD | Continuity of Care Document ---
Author Author Portia Batres MD Organization Unknown Address [address] [facility] [address] [place] [address] Phone [phone] Care Team Providers Care Fish Net Stringer Name Role Phone Waqas Batres JR, MD [...] Date Facility Test Result H/L Range Note Laboratory test finding 03/04/2020 [facility] Basket Weaver: [place] [address] [phone] A1c <pending> Procedures Date Code Description Status 03/25/2019 [id number] Mammogram Completed 01/30/2017 [id number] Bone Mineral Density Test Comple shelbie 11/11/2008 [id number] Colonoscopy Completed Medical Devices Description No Information Available Encounters Type Date Location Provider Dx Diagnosis Office Visit 09/05/2019 9:00a [facility] Waqas Batres MD G30.1 Alzheimer's [...] Pure hypercholesterolemia, unspe cified Waqas Batres MD 09/05/2019 G30.1 Alzheimer's disease with late on set Waqas Batres MD 09/05/2019 F02.80 Dementia in other di seases classified elsewhere without behavioral disturbance Waqas Batres MD 09/05/2019 E11.9 Type 2 diabetes mellitus without complications Waqas Batres MD 09/05/2019 I10 Essential (primary) hypertension Waqas Batres MD 09/05/2019 E78.00 Pure hypercholesterolemia, unspe cified Waqas Batres MD Plan of Treatment Future Appointment(s):* 09/11/2020 10:20 am - Waqas Batres MD at [facility] * 09/11/2020 10:00 am - Nurse #2 at [facility] 03/04/2020 - Waqas Batres MD* [...]
[2020-04-19] MEDS ORDERED: ATOR1TAB19 (09:01)
[2020-04-19] MEDS ORDERED: ASPI-1 PO (09:01)
[2020-04-19] MEDS ORDERED: LIDOCAINE 2% 5ML JELLY UROJET TOP ONE (09:15)
[2020-04-19 09:24] VITALS: BP 150/72
--- OUTSIDE RECORDS SUMMARY | 2020-04-19 09:30 | CCD ---
Author Author [facility] Organization [facility] Address Unknown Phone Unavailable Care Team Providers Care Game Room Attendant Name Role Phone Berkley Batres MD Unavailable Unavailable Berkley Batres MD Unavailable Unavailable Berkley Batres MD Unavailable Unavailable Berkley Batres MD Unavailable Unavailable Berkley Batres MD Unavailable Unavailable Berkley Batres MD Unavailable Unavailable Berkley Batres MD Unavailable Unavailable Berkley Batres MD Unavailable Unavailable Berkley Batrse MD Unavailable Unavailable Berkley Batres MD Unavailable [...] Unavailable Unavailable Berkley Batres MD Unavailable Unavailable GreentownBerkley MD Unavailable Unavailable GiselBerkley MD Unavailable Unavailable GiselBerkley MD Unavailable Unavailable GiselBerkley MD Unavailable Unavailable GiselBerkley MD Unavailable Unavailable GiselBerkley MD Unavailable Unavailable GiselBerkley MD Unavailable Unavailable GiselBerkley MD Unavailable Unavailable GreentownBerkley MD Unavailable Unavailable GreentownBerkley MD Unavailable Unavailable Greent[place]Berkley MD Unavailable Unavailable GiselBerkley MD Unavailable Unavailable GiselBerkley MD Unavailable Unavailable GiselBerkley MD Unavailable Unavailable GiselBerkley MD Unavailable Unavailable GreentownBerkley MD Unavailable Unavailable GreentownBerkley MD Unavailable Unavailable GreentownBerkley MD Unavailable Unavailable GreentownBerkley MD Unavailable Unavailable GreentownBerkley MD Unavailable Unavailable GreentownBerkley MD Unavailable Unavailable GiselBerkley MD Unavailable Unavailable GreentownBerkley MD Unavailable Unavailable GreentownBerkley MD Unavailable Unavailable GreentownBerkley MD Unavailable Unavailable GreentownBerkley MD Unavailable Unavailable GreentownBerkley MD Unavailable Unavailable GreentownBerkley MD Unavailable Unavailable GiselBerkley MD Unavailable Unavailable GiselBerkley MD Unavailable Unavailable GiselBerkley MD Unavailable Unavailable GiselBerkley MD Unavailable Unavailable GiselBerkley MD Unavailable Unavailable GiselBerkley MD Unavailable Unavailable GiselBerkley MD Unavailable Unavailable Greent[place]Berkley white MD Unavailable Unavailable GiselBerkley white MD Unavailable Unavailable GiselBerkley MD Unavailable Unavailable Greent[place]Berkley white MD Unavailable Unavailable GiselBerkley MD Unavailable Unavailable GreentownBerkley white MD Unavailable Unavailable GiselBerkley white MD Unavailable Unavailable GreentownBerkley white MD Unavailable Unavailable GreentownBerkley MD Unavailable Unavailable GreentownBerkley MD Unavailable Unavailable GreentownBerkley MD Unavailable Unavailable GreentownBerkley MD Unavailable Unavailable GreentownBerkley MD Unavailable Unavailable GreentownBerkley MD Unavailable Unavailable GreentownBerkley MD Unavailable Unavailable Greent[place]Berkley white MD Unavailable Unavailable GiselBerkley MD Unavailable Unavailable GiselBerkley MD Unavailable Unavailable GiselBerkley MD Unavailable Unavailable Rosana Duggan TURNSTILE COLLECTOR Unavailable Unavailable Urban, Rosana TURNSTILE COLLECTOR Unavailable Unavailable Urban, Rosana TURNSTILE COLLECTOR Unavailable Unavailable Urban, Rosana TURNSTILE COLLECTOR Unavailable Unavailable Urban, Rosana TURNSTILE COLLECTOR Unavailable Unavailable Urban, Rosana TURNSTILE COLLECTOR Unavailable Unavailable Urban, Rosana TURNSTILE COLLECTOR Unavailable Unavailable Urban, Rosana TURNSTILE COLLECTOR Unavailable Unavailable Urban, Rosana TURNSTILE COLLECTOR Unavailable Unavailable Urban, Rosana TURNSTILE COLLECTOR Unavailable Unavailable Urban, Rosana TURNSTILE COLLECTOR Unavailable Unavailable Urban, Rosana TURNSTILE COLLECTOR Unavailable Unavailable Urban, Rosana TURNSTILE COLLECTOR Unavailable Unavailable Urban, Rosana TURNSTILE COLLECTOR Unavailable Unavailable Urban, Rosana TURNSTILE COLLECTOR Unavailable Unavailable Urban, Rosana TURNSTILE COLLECTOR Unavailable Unavailable Urban, Rosana TURNSTILE COLLECTOR Unavailable Unavailable Urban, Rosana TURNSTILE COLLECTOR Unavailable Unavailable Urban, Rosana TURNSTILE COLLECTOR Unavailable Unavailable Urban, Rosana TURNSTILE COLLECTOR Unavailable Unavailable Urban, Rosana TURNSTILE COLLECTOR Unavailable Unavailable Urban, Roasna TURNSTILE COLLECTOR Unavailable Unavailable Urban, Rosana TURNSTILE COLLECTOR Unavailable Unavailable Urban, Rosana TURNSTILE COLLECTOR Unavailable Unavailable Urban, Rosana TURNSTILE COLLECTOR Unavailable Unavailable Urban, Rosana TURNSTILE COLLECTOR Unavailable Unavailable Urban, Rosana TURNSTILE COLLECTOR Unavailable Unavailable Re-disclosure Warning The records that [...] is protected by Article 27-F of the [facility] Public Health law. If you continue you may have access to information: Regarding HIV / AIDS; Provided by facilities licensed or operated by the [facility] Office of Mental Health; or Provided by the [facility] Office for People With Developmental Disabilities. If such information is present, then the following [facility] mandated warning applies: This information has [...] law may result in a fine or correction sentence or both. A general authorization for the release of medical or other information is NOT sufficient authorization for further disc losure. Family History Family Member Name Family Member Gender Family Member Status Date o f Status Description Data Source(s) Unknown Unknown Problem [facility] ([facility]) Encounters Encounter Providers Location Date Indications Data Source(s ) Outpatient Attender: Waqas Oakley 1 05/05/2019 09:20:00 AM EST [facility] ([facility] ) Outpatient Attender: Waqas Oakley 0 09/05/2019 09:00:00 AM EDT [facility] ([facility] ) Outpatient Attender: Rosana Oakley 10:00:00 AM EDT [facility] ([facility] ) Outpatient Attender: Waqas Oakley 0 05/15/2019 12:00:00 PM EST [facility] ([facility] ) Medications Medication Brand Name Start Date Product Form Dose Route Admi nistrative Instructions Pharmacy Instructions Status Indications Reaction Description Data Source(s) Shingrix Shingrix 05/15/2019 12:00:00 AM EST activ e [facility] ([facility]) Aspirin 325 MG Oral Tablet Aspirin 05/15/2019 12:00:00 AM EST ORAL completed [facility] ([facility]) Aspirin 81 MG Delayed Release Oral Tablet Aspirin 81 2019 12:00:00 AM EST ORAL active [facility] ( [facility]) Calcium Carbonate 1500 MG / Cholecalciferol 200 UNT Oral Tab let Calcium 600 + D 05/15/2019 12:00:00 AM EST ORAL completed [facility] ([facility]) Emergen-C Vitamin C 05/15/2019 12:00:00 AM EST completed [facility] ([facility]) Folic Acid 1 MG Oral Tablet Folic Acid 05/15/2019 12:00:00 AM EST ORAL completed [facility] ([facility]) Lisinopril 10 MG Oral Tablet Lisinopril 05/15/2019 12:00:00 AM EST ORAL completed [facility] ([facility]) Esomeprazole 20 MG Delayed Release Oral Capsule Esomeprazole Magnesium 05/15/2019 12:00:00 AM EST ORAL completed [facility] ([facility]) atorvastatin 10 MG Oral Tablet Atorvastatin Calcium 05/15/2019 1 2:00:00 AM EST ORAL active [facility] ( [facility]) Esomeprazole 40 MG Delayed Release Oral Capsule [Nexium] Nex ium 05/15/2019 12:00:00 AM EST ORAL completed [facility] ([facility]) Insurance Providers Payer name Policy type / Coverage type Policy ID Covered democrat ID Covered democrat's relationship to garcia Policy Garcia Plan Information [facility] [id number] SP [id number] MEDICARE [id number] SP [id number] MEDICARE [id number] SP [id number] [facility] [id number] SP [id number] MEDICARE [id number] SP [id number] A [facility] [id number] SP [id number] [facility] [id number] SP [id number] [employer] [id number] SP [id number] [employer] PPO O [id number] S [id number] MEDICARE C [id number] S [id number] A [employer] [id number] SP [id number] [employer] [id number] SP [id number] [employer] Medigap Part B Self Medicare Natl Gov't Servi Medicare Primary Self [employer] [id number] SP [id number] A [id number] Problems, Conditions, and Diagnoses Code Display Name Description Problem Type Effective Dates Data Source(s) [id number] Type 2 diabetes mellitus Type 2 diabetes mellitus Prob matias 08/14/2019 12:00:00 AM EDT [facility] ([facility]) Surgeries/Procedures Procedure Description Date Indications Data Source(s) ECG ROUTINE ECG W/LEAST 12 LDS W/I&R 05/15/2019 12:00: 00 AM EST [facility] ([facility]) Mammogram 03/25/2019 12:00:00 AM GAIL Morse [facility] ([facility]) Results ID Date Data Source [id number] 03/04/2020 10:45:00 AM EST [facility] ([facility]) Name Value Range Interpretation Code Description Data Vidhya rce(s) Supporting Document(s) Urea nitrogen [Mass/volume] in Serum or Plasma 18 mg/dL 7-18 [facility] ([facility]) Glucose [Mass/volume] in Serum or Plasma 101 mg/dL 74-99 [facility] ([facility]) 100-125 mg/dL PRE-DIABETES/FASTING >126 mg/dL DIABETES/FASTING Creatinine 0.7 mg/dL 0.6-1.3 [facility] Chloride [Moles/volume] in Serum or Plasma 106 meq/L 98-107 [facility] ([facility]) Sodium [Moles/volume] in Serum or Plasma 145 meq/L 136-145 [facility] ([facility]) Potassium [Moles/volume] in Serum or Plasma 4.2 meq/L 3.5-5.1 [facility] ([facility]) Calcium [Mass/volume] in Serum or Plasma 9.1 mg/dL 8.5-10.1 [facility] ([facility]) Alkaline phosphatase isoenzyme [Units/volume] in Serum or Pl asma 73 mg/dL 46-116 [facility] ([facility]) Carbon dioxide, total [Moles/volume] in Serum or Plasma 32 meq/L 21 -32 [facility] ([facility]) Alanine aminotransferase [Enzymatic activity/volume] in Seru m or Plasma 30 U/L 12-78 [facility] ([facility]) Aspartate aminotransferase [Enzymatic activity/volume] in Serum or Plasma 16 U/L 15-37 [facility] ([facility] ) Total Bilirubin 0.5 mg/dL 0.2-1.0 [facility] Proteinase 3 Ab [Units/volume] in Serum 7.0 g/dL 6.4-8.2 [facility] ([facility]) A/G Ratio 1.19 CALC 1.00-1.90 [facility] ([facility]) Albumin [Mass/volume] in Serum or Plasma 3.8 g/dL 3.4-5.0 [facility] ([facility]) Glomerular filtration rate/1.73 sq M pre dicted among non-blacks [Volume Rate/Area] in Serum or Plasma by Creatinine-based formula (MDRD) Laboratory test result [facility] Glomerular filtration rate/1.73 sq M pre dicted among blacks [Volume Rate/Area] in Serum or Plasma by Creatinine-based formula (MDRD) Laboratory test result [facility] <content>CHRONIC KIDNEY DISEASE STAGING PER NKF</content>
<content></content>
<content>STAGE I & II GFR >= 60 NORMAL TO MILDLY DECREASED</content>
<content>STAGE III GFR 30-59 MODERATELY DECREASED</content>
<content>STAGE IV GFR 15-29 SEVERELY DECREASED</content>
<content>STAGE V GFR <15 VERY LITTLE GFR LEFT</content>
<content>ESRD GFR <15 ON WINDER FIXER</content>
<content></content> ID Date Data Source [id number] 03/04/2020 10:45:00 AM EST [facility] Name Value Range Interpretation Code Description Data Vidhya rce(s) Supporting Document(s) Hemoglobin A1c/Hemoglobin.total in Blood 6.0 % [facility] Lab Result Notes: Pre-Diabetes 5.7 - 6.4 % Diabetes = or > 6.5% Glucose mean value [Mass/volume] in Blood Estimated fr om glycated hemoglobin 125 mg/dL 60-110 [facility] ID Date Data Source [id number] 03/04/2020 10:45:00 AM EST [facility] Name Value Range Interpretation Code Description Data Vidhya rce(s) Supporting Document(s) Leukocytes [#/volume] in Blood by Automated count 8.7 x10*3/UL 4.1-10 .9 [facility] Hemoglobin [Mass/volume] in Blood 14.4 g/dL 12.0-18.0 [facility] ([facility]) Erythrocytes [#/volume] in Blood by Automated count 4.71 x10*6/UL 4.2 0-6.30 [facility] ([facility]) Hematocrit [Volume Fraction] of Blood by Automated count 40.6 % 3 7.0-51.0 [facility] ([facility]) MCV 86.1 fL 80.0-97.0 [facility] MCH 30.7 pg 26.0-32.0 [facility]) MCHC 35.6 g/dL 31.0-38.0 [facility] ([facility]) MPV 7.2 FL 7.8-11.0 [facility] ([facility]) Platelets [#/volume] in Blood by Automated count 299 x10*3/UL 140-440 [facility] Erythrocyte distribution width [Ratio] by Automated count 12.5 % 11.6-13.7 [facility] ([facility]) Mid % 5.9 % 1.7-9.3 [facility] Neut % 68.2 % 37.0-92.0 [facility] Lymph % 25.9 % 10.0-58.5 [facility] ([facility]) Mid # 0.6 x10*3/UL 0.1-0.6 [facility] ([facility]) Neut # 5.9 x10*3/UL 2.0-7.8 [facility] ([facility]) Lymph # 2.2 x10*3/UL 0.6-4.1 [facility] ([facility]) ID Date Data Source [id number] 03/04/2020 10:45:00 AM EST [facility] ([facility]) Name Value Range Interpretation Code Description Data Vidhya rce(s) Supporting Document(s) Hemoglobin A1c/Hemoglobin.total in Blood Laboratory test result [facility] ([facility]) ID Date Data Source [id number] 05/15/2019 09:38:00 AM EST [facility] ([facility]) Name Value Range Interpretation Code Description Data Vidhya rce(s) Supporting Document(s) Thyrotropin [Units/volume] in Serum or Plasma by Detec tion limit <= 0.05 mIU/L 1.98 uIU/mL 0.36-3.74 [facility] ([facility] ) ID Date Data Source [id number] 05/15/2019 09:38:00 AM EST [facility] ([facility]) Name Value Range Interpretation Code Description Data Vidhya rce(s) Supporting Document(s) Triglyceride [Mass/volume] in Serum or Plasma 92 mg/dL 30-150 [facility] ([facility]) Cholesterol [Mass/volume] in Serum or Plasma 156 mg/dL 131-200 [facility] ([facility]) Cholesterol in LDL [Mass/volume] in Serum or Plasma by calcu lation 87 CALC 50-159 [facility] ([facility]) Cholesterol in HDL [Mass/volume] in Serum or Plasma 51 mg/dL 35-60 [facility] ([facility]) ID Date Data Source [id number] 05/15/2019 09:38:00 AM EST [facility] ([facility]) Name Value Range Interpretation Code Description Data Vidhya rce(s) Supporting Document(s) Glucose [Mass/volume] in Serum or Plasma 119 mg/dL 74-99 [facility] ([facility]) 100-125 mg/dL PRE-DIABETES/FASTING >126 mg/dL DIABETES/FASTING Urea nitrogen [Mass/volume] in Serum or Plasma 22 mg/dL 7-18 [facility] ([facility]) Creatinine 0.7 mg/dL 0.6-1.3 [facility] Sodium [Moles/volume] in Serum or Plasma 144 meq/L 136-145 [facility] ([facility]) Potassium [Moles/volume] in Serum or Plasma 4.4 meq/L 3.5-5.1 [facility] ([facility]) Carbon dioxide, total [Moles/volume] in Serum or Plasma 31 meq/L 21 -32 [facility] ([facility]) Chloride [Moles/volume] in Serum or Plasma 107 meq/L 98-107 [facility] ([facility]) Calcium [Mass/volume] in Serum or Plasma 9.4 mg/dL 8.5-10.1 [facility] ([facility]) Total Bilirubin 0.5 mg/dL 0.2-1.0 [facility] ([facility]) Alkaline phosphatase isoenzyme [Units/volume] in Serum or Pl asma 62 mg/dL 46-116 [facility] ([facility]) Aspartate aminotransferase [Enzymatic activity/volume] in Serum or Plasma 16 U/L 15-37 [facility] ([facility] ) Alanine aminotransferase [Enzymatic activity/volume] in Seru m or Plasma 33 U/L 12-78 [facility] ([facility]) A/G Ratio 1.32 CALC 1.00-1.90 [facility]) Proteinase 3 Ab [Units/volume] in Serum 7.2 g/dL 6.4-8.2 [facility] ([facility]) Albumin [Mass/volume] in Serum or Plasma 4.1 g/dL 3.4-5.0 [facility] ([facility]) Glomerular filtration rate/1.73 sq M pre dicted among non-blacks [Volume Rate/Area] in Serum or Plasma by Creatinine-based formula (MDRD) Laboratory test result [facility] Glomerular filtration rate/1.73 sq M pre dicted among blacks [Volume Rate/Area] in Serum or Plasma by Creatinine-based formula (MDRD) Laboratory test result [facility] ([facility]) <content>CHRONIC KIDNEY DISEASE STAGING PER NKF</content>
<content></content>
<content>STAGE I & II GFR >= 60 NORMAL TO MILDLY DECREASED</content>
<content>STAGE III GFR 30-59 MODERATELY DECREASED</content>
<content>STAGE IV GFR 15-29 SEVERELY DECREASED</content>
<content>STAGE V GFR <15 VERY LITTLE GFR LEFT</content>
<content>ESRD GFR <15 ON WINDER FIXER</content>
<content></content> ID Date Data Source [id number] 05/15/2019 09:38:00 AM EST [facility] ([facility]) Name Value Range Interpretation Code Description Data Vidhya rce(s) Supporting Document(s) Leukocytes [#/volume] in Blood by Automated count 8.6 x10*3/UL 4.1-10 .9 [facility] ([facility]) Hemoglobin [Mass/volume] in Blood 13.5 g/dL 12.0-18.0 [facility] ([facility]) Erythrocytes [#/volume] in Blood by Automated count 4.39 x10*6/UL 4.2 0-6.30 [facility] ([facility]) MCV 88.5 fL 80.0-97.0 [facility]) Hematocrit [Volume Fraction] of Blood by Automated count 38.9 % 3 7.0-51.0 [facility] ([facility]) MCH 30.7 pg 26.0-32.0 [facility]) Erythrocyte distribution width [Ratio] by Automated count 12.4 % 11.6-13.7 [facility] ([facility]) MCHC 34.7 g/dL 31.0-38.0 [facility] MPV 7.5 FL 7.8-11.0 [facility] Platelets [#/volume] in Blood by Automated count 303 x10*3/UL 140-440 [facility] ([facility]) Lymph % 23.2 % 10.0-58.5 [facility] Mid % 6.9 % 1.7-9.3 [facility] Neut % 69.9 % 37.0-92.0 [facility] Mid # 0.6 x10*3/UL 0.1-0.6 [facility] ([facility]) Lymph # 2.0 x10*3/UL 0.6-4.1 [facility] ([facility]) Neut # 6.0 x10*3/UL 2.0-7.8 [facility] ([facility]) Procedure Vital Signs ID Date Data Source UNK Name Value Range Interpretation Code Description Data Source(s) Body mass index (BMI) [Ratio] 26.9 kg/m2 26.9 k g/m2 [facility] ([facility]) Body weight 147.00 [lb_av] 147.00 [lb_av] [facility] T ([facility]) Body height 62 [in_i] 62 [in_i] [facility] ([facility]) 5'2" Heart rate 80 /min 80 /min [facility] ([facility]) Diastolic blood pressure 78 mm[Hg] 78 mm[Hg] [facility] ([facility]) Systolic blood pressure 124 mm[Hg] 124 mm[Hg] [facility] ([facility]) Body mass index (BMI) [Ratio] 24.1 kg/m2 24.1 k g/m2 [facility] ([facility]) Body weight 132.00 [lb_av] 132.00 [lb_av] [facility] T ([facility]) Body height 62 [in_i] 62 [in_i] [facility] ([facility]) 5'2" Diastolic blood pressure 62 mm[Hg] 62 mm[Hg] [facility] ([facility]) Systolic blood pressure 120 mm[Hg] 120 mm[Hg] [facility] ([facility]) Body mass index (BMI) [Ratio] 24.7 kg/m2 24.7 k g/m2 [facility] ([facility]) Body weight 135.00 [lb_av] 135.00 [lb_av] [facility] Body height 62 [in_i] 62 [in_i] [facility] ([facility]) 5'2" Heart rate 66 /min 66 /min [facility] ([facility]) Diastolic blood pressure 60 mm[Hg] 60 mm[Hg] [facility] ([facility]) Systolic blood pressure 110 mm[Hg] 110 mm[Hg] [facility] ([facility]) Body mass index (BMI) [Ratio] 24.7 kg/m2 24.7 k g/m2 [facility] ([facility]) Body weight 135.00 [lb_av] 135.00 [lb_av] [facility] T ([facility]) Body height 62 [in_i] 62 [in_i] [facility] ([facility]) 5'2" Heart rate 82 /min 82 /min [facility] ([facility]) Diastolic blood pressure 78 mm[Hg] 78 mm[Hg] [facility] ([facility]) Systolic blood pressure 126 mm[Hg] 126 mm[Hg] [facility] ([facility])
== END 2020-04-19 09:32 | disposition home or self-care (01) ==
LOC: M ED 08:51
DX: Z46.6 Encounter for fitting and adjustment of urinary device (principal); I10 Essential (primary) hypertension; E78.49 Other hyperlipidemia; Z87.448 Personal history of other diseases of urinary system; Z87.891 Personal history of nicotine dependence; Z79.82 Long term (current) use of aspirin; Z79.899 Other long term (current) drug therapy

== ENCOUNTER 2020-12-31 14:16 | Inpatient (IN) | payer MEDICARE, OTHER ==
[~2020-12-31] VITALS: Ht 157.5 cm; Wt 65.0 kg
[~2020-12-31 14:16] MED LIST changes: +ASPI-1 PO; +ATOR1TAB19; -LISI-542 PO; +LISI-898 PO
--- OUTSIDE RECORDS SUMMARY | 2020-12-31 14:25 | CCD | Continuity of Care Document ---
Author Author Portia Batres MD Organization Unknown Address [address] [facility] [address] [place] [address] Phone [phone] Care Team Providers Care Clip Baker Name Role Phone Waqas Batres JR, MD [facility] Unavailable [facility] - radio adjuster [facility] [phone] Ramin Gaytan MD [facility] [phone] Problems Active Problems Provider Date Type 2 [...] mouth every day Waqas Batres MD 05/15/2019 Medications Administered in Office Medication SIG Qnty Indications Ordering Provider Date Covid-19 vaccine, Unspecified Inj ection Unknown 04/23/2020 Covid-19 vaccine, Unspecified Inj ection Unknown 04/02/2020 Immunizations CPT Code Status Date Vaccine Lot # U-Flu Given 12/28/2017 Influenza,Unspecified U-Flu Given 12/18/2016 Influenza,Unspecified Vital Signs Date Vital Result Comment 09/11/2020 10:15am BP Systolic 124 mmHg BP Diastolic 68 mmHg Heart Rate 80 /min Height 62 inches 5'2" Weight 153.50 lb O2 % BldC Oximetry 92 % RM Air BMI (Body Mass Index) 28.1 kg/m2 04/16/2020 9:52am BP Systolic 122 mmHg BP Diastolic 70 mmHg Height 62 inches 5'2" Weight 147.00 lb BMI (Body Mass Index) 26.9 kg/m2 Results Test Acquired Date Facility Test Result H/L Range Note Complete Blood Count 09/11/2020 [facility] [employer] blanche armenta Claims Account Manager: [place] [address] [phone] WBC 8.1 x10*3/UL 4.1 - 10.9 RBC 5.02 x10*6/UL 4.20 - 6.30 Hemoglobin 15.0 g/dL 12.0 - 18.0 Hematocrit 44.5 % 37.0 - 51.0 MCV 88.5 fL 80.0 - 97.0 MCH 29.9 pg 26.0 - 32.0 MCHC 33.8 g/dL 31.0 - 38.0 RDW 12.9 % 11.6 - 13.7 PLT 320 x10*3/UL 140 - 440 MPV 7.4 FL Low 7.8 - 11.0 Lymph % 24.0 % 10.0 - 58.5 Mid % 6.1 % 1.7 - 9.3 Neut % 69.9 % 37.0 - 92.0 Lymph # 1.9 x10*3/UL 0.6 - 4.1 Mid # 0.5 x10*3/UL 0.1 - 0.6 Neut # 5.7 x10*3/UL 2.0 - 7.8 A1c 09/11/2020 [facility] Claims Account Manager: [place] [address] [phone] Hba1c 6.4 % High <5.7 1 Est Avg Glucose 137 mg/dL High 60 - 110 Comprehensive Chem Profile 09/11/2020 [facility] chaves Claims Account Manager: [place] [address] [phone] Glucose 138 mg/dL High 74 - 99 2 BUN 19 mg/dL High 7 - 18 Creatinine 0.8 mg/dL 0.6 - 1.3 Sodium 143 mEq/L 136 - 145 Potassium 3.8 mEq/L 3.5 - 5.1 Chloride 105 mEq/L 98 - 107 Carbon Dioxide 29 mEq/L 21 - 32 Calcium 9.3 mg/dL 8.5 - 10.1 Alk. Phosphatase 72 mg/dL 46 - 116 Total Bilirubin 0.8 mg/dL 0.2 - 1.0 Ast (Sgot) 16 U/L 15 - 37 Alt (SGPT) 29 U/L 12 - 78 Albumin 3.9 g/dL 3.4 - 5.0 Total Protein 7.2 g/dL 6.4 - 8.2 A/G Ratio 1.18 CALC 1.00 - 1.90 GFR >= 60 [...] LITTLE GFR LEFT ESRD GFR <15 ON TELECOMMUNICATION SYSTEMS DESIGNER Procedures Date Code Description Status 09/11/2020 55663 Office/Outpatient Established Mo d MDM 30-39 Min Completed 04/16/2020 47524 Office/Outpatient Established Lo w MDM 20-29 Min Completed 03/26/2020 [id number] Mammogram Completed 03/25/2019 [id number] Mammogram Completed 01/30/2017 [id number] Bone Mineral Density Test Comple shelbie 11/11/2008 [id number] Colonoscopy Completed Medical Devices Description No Information Available Encounters Type Date Location Provider Dx Diagnosis Office Visit 09/11/2020 10:20a [facility] G30.1 Alzheimer's disease with late onset F02.80 Dementia in oth diseases cla ssd elswhr w/o behavrl disturb E11.9 Type 2 diabetes mellitus wit hout complications I10 Essential (primary) hyperten josé miguel E78.00 Pure hypercholesterolemia, u nspecified M81.0 Age-related osteoporosis w/o current pathological fracture Office Visit 04/16/2020 10:00a [facility] JR PA G30.1 Alzheimer's disease with lat e onset F02.80 Dementia in oth diseases cla ssd elswhr w/o behavrl disturb R33.9 Retention of urine, unspecif ied Assessments Date Code Description Provider 09/11/2020 G30.1 Alzheimer's disease with late on set Waqas Batres MD 09/11/2020 F02.80 Dementia in other di seases classified elsewhere without behavioral disturbance Waqas Batres MD 09/11/2020 E11.9 Type 2 diabetes mellitus without complications Waqas Batres MD 09/11/2020 I10 Essential (primary) hypertension Waqas Batres MD 09/11/2020 E78.00 Pure hypercholesterolemia, unspe cified Waqas Batres MD 09/11/2020 M81.0 Age-related osteoporosis without current pathological fracture Waqas Batres MD 04/16/2020 G30.1 Alzheimer's disease with late on set ONEL Hernandez JR 04/16/2020 F02.80 Dementia in other di seases classified elsewhere without behavioral disturbance ONEL Hernandez JR 04/16/2020 R33.9 Retention of urine, unspecified ONEL Hernandez JR Plan of Treatment Future Appointment(s):* 03/01/2021 9:40 am - Waqas Batres MD at [facility] 09/11/2020 - Waqas Batres MD* G30.1 Alzheimer's disease with late onset * F02.80 Dementia in other diseases classified elsewhere without behavioral disturbance * E11.9 Type 2 diabetes mellitus without complications * I10 Essential (primary) hypertension* Comments:* Hypertension at [facility]-8 guidelines * E78.00 Pure hypercholesterolemia, unspecified * M81.0 Age-related osteoporosis without current pathological fracture Functional Status Description No Information Available Mental Status Description No Information Available Referrals Description No Information Available
--- OUTSIDE RECORDS SUMMARY | 2020-12-31 14:25 | CCD ---
Author Author [facility] Organization [facility] Address Unknown Phone Unavailable Care Team Providers Care Power Line Installer And Repairer Name Role Phone [facility] Unavailable PROBLEMS Type Condition ICD9-CM Code QSC11-BE Code Onset Dates Condition S tatus W/U Status Risk SNOMED Code Notes Problem Urinary retention R33.9 Active confirmed 26 [id number] Problem Cystocele N81.10 Active confirmed [id number] ALLERGIES No Known Allergies ENCOUNTERS from 1933 to 2020-12-09 Encounter Location Date Provider Diagnosis [facility] [address] [place] [address] [place] [address] Nov, [facility] Pelvic organ prolaps e quantification stage 4 cystocele N81.10 IMMUNIZATIONS No Information SOCIAL HISTORY Tobacco Use: Social History Observation Description Date Details (start date - stop date) Former Smoker Sex Assigned At : Social History Observation Description Sex Assigned At Unknown Alcohol Screening: Question Answer Notes Did you have a drink containing alcohol in the past year? No Points 0 Interpretation Negative Tobacco Use: Question Answer Notes Are you a: former smoker REASON FOR REFERRAL No Information VITAL SIGNS Weight 154.2 lbs Nov, Weight-kg 69.94 kg Nov, Height 62 in Nov, BMI 28.2 kg/m2 Nov, Blood pressure systolic 144 mm Hg Nov, Blood pressure diastolic 82 mm Hg Nov, MEDICATIONS Medication SIG (Take, Route, Frequency, Duration) Notes Start Da te End Date Status Aspir-Low 81 MG 1 tablet Orally Once a day for 30 day(s) Active Emergen-C Immune - as directed Orally Not-Taking Atorvastatin Calcium 10 MG 1 tablet Orally Once a day for 30 day(s) Active PROCEDURES No Information RESULTS No Results REASON FOR VISIT pessary check MEDICAL (GENERAL) HISTORY Type Description Date Medical History hyperlipidemia Medical History Stroke Medical History Bladder Retention Medical History Memory Loss Surgical History hysterectomy Surgical History appendectomy Surgical History bladder suspension Hospitalization History childbirth Goals Section No Information Health Concerns No Information MEDICAL EQUIPMENT No Information MENTAL STATUS No Information FUNCTIONAL STATUS No Information ASSESSMENTS Encounter Date Diagnosis Assessment Notes Treatment Notes Treatm ent Clinical Notes Nov, Pelvic organ prolapse quanti fication stage 4 cystocele (ICD-10 - N81.10) PLAN OF TREATMENT No Information Insurance Providers Payer Name Payer Address Payer Phone Insured Name Patient Relati onship to Insured Coverage Start Date Coverage End Date MEDICARE Part A and B [address] [facility] [id number] GRETA CLEMONS [facility] [address] [address] [facility] [id number] GRETA CLEMONS
--- OUTSIDE RECORDS SUMMARY | 2020-12-31 14:26 | CCD ---
Author Author [facility] Organization [facility] Address Unknown Phone Unavailable Care Team Providers Care Computed Tomography Technologist Name Role Phone Kesha EMERSON JR-C Unavailable Unavailable PICKERAL JR, J JAIR PA-C Unavailable Unavailable PICKERAL JR J JAIR PA-C Unavailable Unavailable PICKERAL JR J JAIR PA-C Unavailable Unavailable PICKERAL JR J JAIR PA-C Unavailable Unavailable PICKERAL JR J JAIR PA-C Unavailable Unavailable PICKERAL JR J JAIR PA-C Unavailable Unavailable PICKERAL JR, J JAIR PA-C Unavailable Unavailable PICKERAL JR, J JAIR PA-C Unavailable Unavailable PICKERAL JR J JAIR PA-C Unavailable Unavailable PICKERAL JR J JAIR PA-C Unavailable Unavailable PICKERAL JR J JAIR PA-C Unavailable Unavailable PICKERAL JR, J JAIR PA-C Unavailable Unavailable PICKERAL JR, J JAIR PA-C Unavailable Unavailable PICKERAL JR, J JAIR PA-C Unavailable Unavailable PICKERAL JR, J JAIR PA-C Unavailable Unavailable PICKERAL JR J JAIR PA-C Unavailable Unavailable PICKERAL JR J JAIR PA-C Unavailable Unavailable PICKERAL JR, J JAIR PA-C Unavailable Unavailable PICKERAL JR, J JAIR PA-C Unavailable Unavailable PICKERAL JR, J JAIR PA-C Unavailable Unavailable PICKERAL JR, J JAIR PA-C Unavailable Unavailable PICKERAL JR, J JAIR PA-C Unavailable Unavailable PICKERAL JR J JAIR PA-C Unavailable Unavailable PICKERAL JR, J JAIR PA-C Unavailable Unavailable PICKERAL JR, J JAIR PA-C Unavailable Unavailable PICKERAL JR, J JAIR PA-C Unavailable Unavailable GiselBerkley MD Unavailable Unavailable GiselBerkley MD Unavailable Unavailable GiselBerkley MD Unavailable Unavailable [place] CreekBerkley MD Unavailable Unavailable [place]Berkley MD Unavailable Unavailable [place]Berkley MD Unavailable Unavailable [place]ley MD Unavailable Unavailable GiselBerkley MD Unavailable Unavailable [place]ley MD Unavailable Unavailable GiselBerkley MD Unavailable Unavailable GiselBerkley MD Unavailable Unavailable GiselBerkley MD Unavailable Unavailable GiselBerkley MD Unavailable Unavailable GiselBerkley MD Unavailable Unavailable [place] MD Unavailable Unavailable [place]ley MD Unavailable Unavailable GiselBerkley MD Unavailable Unavailable GiselBerkley MD Unavailable Unavailable [place] MD Unavailable Unavailable [place] MD Unavailable Unavailable GiselBerkley MD Unavailable Unavailable [place] MD Unavailable Unavailable GiselBerkley MD Unavailable Unavailable GiselBerkley MD Unavailable Unavailable GiselBerkley MD Unavailable Unavailable GiselBerkley MD Unavailable Unavailable [place] MD Unavailable Unavailable GiselBerkley MD Unavailable Unavailable GiselBerkley MD Unavailable Unavailable GiselBerkley MD Unavailable Unavailable GiselBerkley MD Unavailable Unavailable [place]ley MD Unavailable Unavailable GiselBerkley white MD Unavailable Unavailable GiselBerkley MD Unavailable Unavailable GiselBerkley MD Unavailable Unavailable [place] MD Unavailable Unavailable [place] MD Unavailable Unavailable GiselBerkley MD Unavailable Unavailable [place] white MD Unavailable Unavailable GiselBerkley MD Unavailable Unavailable GiselBerkley MD Unavailable Unavailable [place] MD Unavailable Unavailable GiselBerkley MD Unavailable Unavailable GiselBerkley MD Unavailable Unavailable GiselBerkley MD Unavailable Unavailable [place] MD Unavailable Unavailable GiselBerkley MD Unavailable Unavailable GiselBerkley MD Unavailable Unavailable GiselBerkley MD Unavailable Unavailable GiselBerkley MD Unavailable Unavailable [place] MD Unavailable Unavailable [place] MD Unavailable Unavailable GiselBerkley MD Unavailable Unavailable [place], F Alan MD Unavailable Unavailable [place], F Alan MD Unavailable Unavailable [place], F Alan MD Unavailable Unavailable Gisel, F Alan MD Unavailable Unavailable [place], F Alan MD Unavailable Unavailable Gisel, F Alan MD Unavailable Unavailable [place], F Alan MD Unavailable Unavailable Gisel, F Alan MD Unavailable Unavailable Gisel, F Alan MD Unavailable Unavailable Gisel, F Alan MD Unavailable Unavailable Gisel, F Alan MD Unavailable Unavailable Gisel, F Alan MD Unavailable Unavailable Gisel, F Alan MD Unavailable Unavailable [place], F Alan MD Unavailable Unavailable Gisel, F Alan MD Unavailable Unavailable Gisel, F Alan MD Unavailable Unavailable Gisel, F Alan MD Unavailable Unavailable Gisel, F Alan MD Unavailable Unavailable [place], F Alan MD Unavailable Unavailable [place], F Alan MD Unavailable Unavailable Gisel, F Alan MD Unavailable Unavailable [place], F Alan MD Unavailable Unavailable [place], F Alan MD Unavailable Unavailable [place], F Alan MD Unavailable Unavailable Gisel, F Alan MD Unavailable Unavailable [place], F Alan MD Unavailable Unavailable [place], F Alan MD Unavailable Unavailable [place], F Alan MD Unavailable Unavailable Gisel, F Alan MD Unavailable Unavailable Gisel, F Alan MD Unavailable Unavailable [place], F Alan MD Unavailable Unavailable [place], F Alan MD Unavailable Unavailable Gisel, Berkley Alan MD Unavailable Unavailable Re-disclosure Warning The records that [...] is protected by Article 27-F of the [place] State Public Health law. If you continue you may have access to information: Regarding HIV / AIDS; Provided by facilities licensed or operated by the [facility] Office of Mental Health; or Provided by the [facility] Office for People With Developmental Disabilities. If such information is present, then the following [facility] mandated warning applies: This information has [...] law may result in a fine or mcc sentence or both. A general authorization for the release of medical or other information is NOT sufficient authorization for further disc losure. 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 manager [address] [place] [address] 12/02/2020 12:00:00 AM EDT eCW1 ([facility] Outpatient Attender: Waqas Oakley 0 09/11/2020 10:20:00 AM EDT MEDENT ([facility] ) Outpatient [address] [facility] [address] 06/02/2020 12:00:00 AM EDT eCW1 ([facility]) Unknown [address] [facility] [address] 05/14/2020 12:00:00 AM EST eCW1 ([facility]) Outpatient [address] [facility] [address] 04/24/2020 12:00:00 AM EST eCW1 ([facility]) Outpatient Attender: JAIR Oakley 0 04/16/2020 09:00:00 AM EST MEDENT ([facility] ) Outpatient [address] [facility] [address] 04/14/2020 12:00:00 AM EST eCW1 ([facility]) Outpatient Attender: Waqas Oakley 1 05/05/2019 09:20:00 AM EST MEDENT ([facility] ) Immunizations Vaccine Date Status Description Data Source(s) COVID-19 VACCINE Pfizer 04/23/2020 12:00:00 AM EST completed [place] Vaccine Series Complete: YESThis Data wa s Submitted to [facility] Via [employer]. COVID-19 VACCINE Pfizer 04/02/2020 12:00:00 AM EST completed [place] Vaccine Series Complete: NOThis Data was Submitted to [facility] [employer]. Medications Medication Brand Name Start Date Product Form Dose Route Admi nistrative Instructions Pharmacy Instructions Status Indications Reaction Description Data Source(s) Covid-19 vaccine, Unspecified 04/23/2020 12:00:00 AM EST completed [facility]) Medication administered onsite Covid-19 vaccine, Unspecified 04/02/2020 12:00:00 AM EST completed [facility]) Medication administered onsite Insurance Providers Payer name Policy type / Coverage type Policy ID Covered libertarian ID Covered libertarian's relationship to garcia Policy Garcia Plan Information [employer] [id number] SP [id number] MEDICARE [id number] SP [id number] A MEDICARE [id number] SP [id number] [employer] [id number] SP [id number] [employer] [id number] SP [id number] [employer] [id number] SP [id number] [facility] [id number] SP [id number] MEDICARE C [id number] S [id number] A [employer] Medigap Part B [id number] Self Medicare Natl Gov't Servi Medicare Primary [id number] Self [id number] A [facility] [id number] SP [id number] MEDICARE [id number] SP [id number] [facility] O [id number] S [id number] MEDICARE C [id number] S [id number] [facility] [id number] SP [id number] [facility] [id number] SP [id number] [employer] PPO O [id number] S [id number] Problems, Conditions, and Diagnoses Code Display Name Description Problem Type Effective Dates Data Source(s) N81.10 Cystocele Cystocele Problem 04/14/2020 12:00:00 AM ES T eCW1 ([facility]) R33.9 Urinary retention Urinary retention Problem 04/14/2020 12:00:00 AM EST eCW1 ([facility]) Surgeries/Procedures Procedure Description Date Indications Data Source(s) OFFICE OUTPATIENT VISIT 25 MINUTES 09/11/2020 12:00:00 AM EDT MEDENT ([facility]) OFFICE OUTPATIENT VISIT 15 MINUTES 04/16/2020 12:00:00 AM EST MEDENT ([facility]) Mammogram 03/26/2020 12:00:00 AM EST M EDENT ([facility]) Results ID Date Data Source [id number] 09/11/2020 10:48:00 AM EDT MED[facility] ([facility]) Name Value Range Interpretation Code Description Data Vidhya rce(s) Supporting Document(s) Glucose [Mass/volume] in Serum or Plasma 138 mg/dL 74-99 MEDENT ([facility]) 100-125 mg/dL PRE-DIABETES/FASTING >126 mg/dL DIABETES/FASTING Urea nitrogen [Mass/volume] in Serum or Plasma 19 mg/dL 7-18 MEDENT ([facility]) Sodium [Moles/volume] in Serum or Plasma 143 meq/L 136-145 MED[facility] ([facility]) Creatinine 0.8 mg/dL 0.6-1.3 [facility] Chloride [Moles/volume] in Serum or Plasma 105 meq/L 98-107 MED[facility] ([facility]) Carbon dioxide, total [Moles/volume] in Serum or Plasma 29 meq/L 21 -32 MED[facility] ([facility]) Potassium [Moles/volume] in Serum or Plasma 3.8 meq/L 3.5-5.1 MED[facility] ([facility]) Calcium [Mass/volume] in Serum or Plasma 9.3 mg/dL 8.5-10.1 MED[facility] ([facility]) Alkaline phosphatase isoenzyme [Units/volume] in Serum or Pl asma 72 mg/dL 46-116 MED[facility] ([facility]) Aspartate aminotransferase [Enzymatic activity/volume] in Serum or Plasma 16 U/L 15-37 MED[facility] ([facility] ) Total Bilirubin 0.8 mg/dL 0.2-1.0 MEDENT ([facility]) Alanine aminotransferase [Enzymatic activity/volume] in Seru m or Plasma 29 U/L 12-78 MED[facility] ([facility]) Albumin [Mass/volume] in Serum or Plasma 3.9 g/dL 3.4-5.0 MED[facility] ([facility]) Proteinase 3 Ab [Units/volume] in Serum 7.2 g/dL 6.4-8.2 MED[facility] ([facility]) A/G Ratio 1.18 CALC 1.00-1.90 [facility] Glomerular filtration rate/1.73 sq M pre dicted among non-blacks [Volume Rate/Area] in Serum or Plasma by Creatinine-based formula (MDRD) Laboratory test result MED[facility] ([facility] ) Glomerular filtration rate/1.73 sq M pre dicted among blacks [Volume Rate/Area] in Serum or Plasma by Creatinine-based formula (MDRD) Laboratory test result [facility] ([facility]) <content>CHRONIC KIDNEY DISEASE STAGING PER NKF</content>
<content></content>
<content>STAGE I & II GFR >= 60 NORMAL TO MILDLY DECREASED</content>
<content>STAGE III GFR 30-59 MODERATELY DECREASED</content>
<content>STAGE IV GFR 15-29 SEVERELY DECREASED</content>
<content>STAGE V GFR <15 VERY LITTLE GFR LEFT</content>
<content>ESRD GFR <15 ON CONSTRUCTION CREW MEMBER</content>
<content></content> ID Date Data Source [id number] 09/11/2020 10:48:00 AM EDT [facility]) Name Value Range Interpretation Code Description Data Vidhya rce(s) Supporting Document(s) Hemoglobin A1c/Hemoglobin.total in Blood 6.4 % [facility] Lab Result Notes: Pre-Diabetes 5.7 - 6.4 % Diabetes = or > 6.5% Glucose mean value [Mass/volume] in Blood Estimated fr om glycated hemoglobin 137 mg/dL 60-110 [facility] ID Date Data Source [id number] 09/11/2020 10:48:00 AM EDT MED[facility] ([facility]) Name Value Range Interpretation Code Description Data Vidhya rce(s) Supporting Document(s) Leukocytes [#/volume] in Blood by Automated count 8.1 x10*3/UL 4.1-10 .9 [facility] Erythrocytes [#/volume] in Blood by Automated count 5.02 x10*6/UL 4.2 0-6.30 [facility] Hematocrit [Volume Fraction] of Blood by Automated count 44.5 % 3 7.0-51.0 [facility] Hemoglobin [Mass/volume] in Blood 15.0 g/dL 12.0-18.0 [facility] ([facility]) MCV 88.5 fL 80.0-97.0 [facility] [facility] MCH 29.9 pg 26.0-32.0 MED[facility] ([facility]) Platelets [#/volume] in Blood by Automated count 320 x10*3/UL 140-440 [facility] Erythrocyte distribution width [Ratio] by Automated count 12.9 % 11.6-13.7 [facility] ([facility]) MCHC 33.8 g/dL 31.0-38.0 [facility] [facility]) MPV 7.4 FL 7.8-11.0 [facility] [facility]) Lymph % 24.0 % 10.0-58.5 [facility] ([facility]) Lymph # 1.9 x10*3/UL 0.6-4.1 [facility] ([facility]) Neut % 69.9 % 37.0-92.0 [facility]) Mid % 6.1 % 1.7-9.3 [facility] Mid # 0.5 x10*3/UL 0.1-0.6 [facility] ([facility]) Neut # 5.7 x10*3/UL 2.0-7.8 [facility] ([facility]) ID Date Data Source [id number] 03/04/2020 10:45:00 AM EST MED[facility] ([facility]) Name Value Range Interpretation Code Description Data Vidhya rce(s) Supporting Document(s) Glucose [Mass/volume] in Serum or Plasma 101 mg/dL 74-99 [facility] ([facility]) 100-125 mg/dL PRE-DIABETES/FASTING >126 mg/dL DIABETES/FASTING Urea nitrogen [Mass/volume] in Serum or Plasma 18 mg/dL 7-18 [facility] ([facility]) Sodium [Moles/volume] in Serum or Plasma 145 meq/L 136-145 [facility] ([facility]) Creatinine 0.7 mg/dL 0.6-1.3 MED[facility] ([facility]) Chloride [Moles/volume] in Serum or Plasma 106 meq/L 98-107 [facility] ([facility]) Carbon dioxide, total [Moles/volume] in Serum or Plasma 32 meq/L 21 -32 [facility] ([facility]) Potassium [Moles/volume] in Serum or Plasma 4.2 meq/L 3.5-5.1 [facility] ([facility]) Calcium [Mass/volume] in Serum or Plasma 9.1 mg/dL 8.5-10.1 [facility] ([facility]) Alkaline phosphatase isoenzyme [Units/volume] in Serum or Pl asma 73 mg/dL 46-116 [facility] ([facility]) Total Bilirubin 0.5 mg/dL 0.2-1.0 MED[facility] ([facility]) Alanine aminotransferase [Enzymatic activity/volume] in Seru m or Plasma 30 U/L 12-78 [facility] ([facility]) Aspartate aminotransferase [Enzymatic activity/volume] in Serum or Plasma 16 U/L 15-37 [facility] ([facility] ) Proteinase 3 Ab [Units/volume] in Serum 7.0 g/dL 6.4-8.2 [facility] ([facility]) Albumin [Mass/volume] in Serum or Plasma 3.8 g/dL 3.4-5.0 [facility] Glomerular filtration rate/1.73 sq M pre dicted among non-blacks [Volume Rate/Area] in Serum or Plasma by Creatinine-based formula (MDRD) Laboratory test result [facility] Glomerular filtration rate/1.73 sq M pre dicted among blacks [Volume Rate/Area] in Serum or Plasma by Creatinine-based formula (MDRD) Laboratory [facility]) <content>CHRONIC KIDNEY DISEASE STAGING PER NKF</content>
<content></content>
<content>STAGE I & II GFR >= 60 NORMAL TO MILDLY DECREASED</content>
<content>STAGE III GFR 30-59 MODERATELY DECREASED</content>
<content>STAGE IV GFR 15-29 SEVERELY DECREASED</content>
<content>STAGE V GFR <15 VERY LITTLE GFR LEFT</content>
<content>ESRD GFR <15 ON CONSTRUCTION CREW MEMBER</content>
<content></content> A/G Ratio 1.19 CALC 1.00-1.90 [facility]) ID Date Data Source [id number] 03/04/2020 10:45:00 AM EST [facility] Name Value Range Interpretation Code Description Data Vidhya rce(s) Supporting Document(s) Hemoglobin A1c/Hemoglobin.total in Blood 6.0 % [facility] ([facility]) Lab Result Notes: Pre-Diabetes 5.7 - 6.4 % Diabetes = or > 6.5% Glucose mean value [Mass/volume] in Blood Estimated fr om glycated hemoglobin 125 mg/dL 60-110 [facility] ID Date Data Source [id number] 03/04/2020 10:45:00 AM EST [facility] ([facility]) Name Value Range Interpretation Code Description Data Vidhya rce(s) Supporting Document(s) Hemoglobin [Mass/volume] in Blood 14.4 g/dL 12.0-18.0 [facility] ([facility]) Erythrocytes [#/volume] in Blood by Automated count 4.71 x10*6/UL 4.2 0-6.30 [facility] ([facility]) Leukocytes [#/volume] in Blood by Automated count 8.7 x10*3/UL 4.1-10 .9 [facility] ([facility]) MCV 86.1 fL 80.0-97.0 [facility] Hematocrit [Volume Fraction] of Blood by Automated count 40.6 % 3 7.0-51.0 [facility] ([facility]) MCH 30.7 pg 26.0-32.0 [facility] Erythrocyte distribution width [Ratio] by Automated count 12.5 % 11.6-13.7 [facility] ([facility]) MCHC 35.6 g/dL 31.0-38.0 [facility] MPV 7.2 FL 7.8-11.0 [facility] Platelets [#/volume] in Blood by Automated count 299 x10*3/UL 140-440 [facility] ([facility]) Lymph % 25.9 % 10.0-58.5 [facility] Mid % 5.9 % 1.7-9.3 [facility] Neut % 68.2 % 37.0-92.0 [facility] Mid # 0.6 x10*3/UL 0.1-0.6 [facility] ([facility]) Neut # 5.9 x10*3/UL 2.0-7.8 [facility] ([facility]) Lymph # 2.2 x10*3/UL 0.6-4.1 [facility] ([facility]) ID Date Data Source [id number] 03/04/2020 10:45:00 AM EST [facility] ([facility]) Name Value Range Interpretation Code Description Data Vidhya rce(s) Supporting Document(s) Hemoglobin A1c/Hemoglobin.total in Blood Laboratory test result [facility] ([facility]) Procedure Social History Code Duration Value Status Description Data Source(s ) Smoking 12/02/2020 12:00:00 AM EDT Former Smoker completed Former Smoker eCW1 ([facility]) Smoking 06/02/2020 12:00:00 AM EDT Former Smoker completed Former Smoker eCW1 ([facility]) Smoking 04/24/2020 12:00:00 AM EST Former Smoker completed Former Smoker eCW1 ([facility]) Smoking 04/24/2020 12:00:00 AM EST Former Smoker completed Former Smoker eCW1 ([facility]) Smoking 04/14/2020 12:00:00 AM EST Former Smoker completed Former Smoker eCW1 ([facility]) Vital Signs ID Date Data Source UNK Name Value Range Interpretation Code Description Data Source(s) Body weight 154.2 [lb_av] 154.2 [lb_av] eCW1 ([facility]) Body weight 69.94 kg 69.94 kg W1 ([facility] Body height 62 [in_i] 62 [in_i] W1 ([facility]) Body mass index (BMI) [Ratio] 28.2 kg/m2 28.2 k g/m2 W1 ([facility]) Systolic blood pressure 144 mm[Hg] 144 mm[Hg] e CW1 ([facility]) Diastolic blood pressure 82 mm[Hg] 82 mm[Hg] eCW1 ([facility]) Diastolic blood pressure 68 mm[Hg] 68 mm[Hg] MEDENT ([facility]) Heart rate 80 /min 80 /min [facility] ([facility]) Body height 62 [in_i] 62 [in_i] [facility] ([facility]) 5'2" Body weight 153.50 [lb_av] 153.50 [lb_av] MEDEN T ([facility]) Oxygen saturation in Arterial blood by Pulse oximetry 92 % 92 % [facility] ([facility]) RM Air Body mass index (BMI) [Ratio] 28.1 kg/m2 28.1 k g/m2 MEDENT ([facility]) Systolic blood pressure 124 mm[Hg] 124 mm[Hg] M EDENT ([facility]) Body weight 150 [lb_av] 150 [lb_av] eCW1 ([facility]) Body height 62 [in_i] 62 [in_i] eCW1 ([facility]) Body mass index (BMI) [Ratio] 27.43 kg/m2 27.43 kg/m2 eCW1 ([facility]) Systolic blood pressure 140 mm[Hg] 140 mm[Hg] e CW1 ([facility]) Diastolic blood pressure 76 mm[Hg] 76 mm[Hg] eCW1 ([facility]) Body weight 150.4 [lb_av] 150.4 [lb_av] eCW1 ([facility]) Body weight 68.22 kg 68.22 kg eCW1 ([facility]) Body height 62 [in_i] 62 [in_i] eCW1 ([facility]) Body mass index (BMI) [Ratio] 27.51 kg/m2 27.51 kg/m2 eCW1 ([facility]) Systolic blood pressure 132 mm[Hg] 132 mm[Hg] e CW1 ([facility]) Diastolic blood pressure 76 mm[Hg] 76 mm[Hg] eCW1 ([facility]) Systolic blood pressure 122 mm[Hg] 122 mm[Hg] M EDRUFINO ([facility]) Diastolic blood pressure 70 mm[Hg] 70 mm[Hg] [facility] ([facility]) Body height 62 [in_i] 62 [in_i] MEDRUFINO ([facility]) 5'2" Body weight 147.00 [lb_av] 147.00 [lb_av] MEDEN T ([facility]) Body mass index (BMI) [Ratio] 26.9 kg/m2 26.9 k g/m2 MEDENT ([facility]) Body weight 145 [lb_av] 145 [lb_av] eCW1 ([facility]) Body height 62 [in_i] 62 [in_i] eCW1 ([facility]) Body mass index (BMI) [Ratio] 26.52 kg/m2 26.52 kg/m2 eCW1 ([facility]) Heart rate 74 /min 74 /min eCW1 ([facility]) Respiratory rate 18 /min 18 /min eCW1 ([facility]) Systolic blood pressure 122 mm[Hg] 122 mm[Hg] e CW1 ([facility]) Diastolic blood pressure 78 mm[Hg] 78 mm[Hg] eCW1 ([facility]) Diastolic blood pressure 78 mm[Hg] 78 mm[Hg] [facility] ([facility]) Body height 62 [in_i] 62 [in_i] [facility] ([facility]) 5'2" Heart rate 80 /min 80 /min MEDRUFINO ([facility]) Systolic blood pressure 124 mm[Hg] 124 mm[Hg] M EDENT ([facility]) Body mass index (BMI) [Ratio] 26.9 kg/m2 26.9 k g/m2 MEDRUFINO ([facility]) Body weight 147.00 [lb_av] 147.00 [lb_av] JOE T ([facility])
--- NOTE | 2020-12-31 17:22 | REP ---
INDICATION: CHEST PAIN COMPARISON: 01/11/2016 TECHNIQUE: PA and lateral. FINDINGS: The mediastinum and cardiac silhouette are normal. Chronic elevation to the right hemidiaphragm again noted. The lung irizarry are clear and without acute consolidation, effusion, or pneumothorax. The skeletal structures are intact and normal. IMPRESSION: No acute cardiopulmonary process. <Electronically signed by Kali Alvarez > 12/31/20 [id number]
[2020-12-31] MEDS ORDERED: MECLIZINE 25 MG TABLET PO ONE (18:05)
--- OUTSIDE RECORDS SUMMARY | 2020-12-31 18:25 | CCD ---
Author Author [facility] Organization [facility] Address Unknown Phone Unavailable Care Team Providers Care Electrical Equipment Technician Name Role Phone Kesha EMERSON JR PA-C Unavailable Unavailable PICKERAL JR, J JAIR [...] PA-C Unavailable Unavailable GiselBerkley MD Unavailable Unavailable [place] DepotBerkley MD Unavailable Unavailable [place] DepotBerkley MD Unavailable Unavailable GiselBerkley MD Unavailable Unavailable GiselBerkley MD Unavailable Unavailable [place] DepotBerkley MD Unavailable Unavailable GiselBerkley MD Unavailable Unavailable [place] DepotBerkley MD Unavailable Unavailable [place] DepotBerkley MD Unavailable Unavailable GiselBerkley MD Unavailable Unavailable GiselBerkley MD Unavailable Unavailable GiselBerkley MD Unavailable Unavailable GiselBerkley MD Unavailable Unavailable GiselBerkley MD Unavailable Unavailable GiselBerkley MD Unavailable Unavailable GiselBerkley MD Unavailable Unavailable [place] DepotBerkley MD Unavailable Unavailable [place] DepotBerkley MD Unavailable Unavailable GiselBerkley MD Unavailable Unavailable GiselBerkley MD Unavailable Unavailable [place] DepotBerkley MD Unavailable Unavailable GiselBerkley MD Unavailable Unavailable GiselBerkley MD Unavailable Unavailable GiselBerkley MD Unavailable Unavailable [place] DepotBerkley MD Unavailable Unavailable [place] DepotBerkley MD Unavailable Unavailable GiselBerkley MD Unavailable Unavailable [place] DepotBerkley MD Unavailable Unavailable GiselBerkley MD Unavailable Unavailable [place] DepotBerkley MD Unavailable Unavailable GiselBerkley MD Unavailable Unavailable GiselBerkley MD Unavailable Unavailable GiselBerkley white MD Unavailable Unavailable GiselBerkley MD Unavailable Unavailable [place] DepotBerkley MD Unavailable Unavailable GiselBerkley MD Unavailable Unavailable [place] DepotBerkley MD Unavailable Unavailable [place] DepotBerkley MD Unavailable Unavailable GiselBerkley white MD Unavailable Unavailable [place] DepotBerkley MD Unavailable Unavailable [place] DepotBerkley MD Unavailable Unavailable [place] DepotBerkley MD Unavailable Unavailable [place] DepotBerkley MD Unavailable Unavailable [place] DepotBerkley MD Unavailable Unavailable [place] DepotBerkley MD Unavailable Unavailable [place] DepotBerkley MD Unavailable Unavailable GiselBerkley MD Unavailable Unavailable [place] DepotBerkley MD Unavailable Unavailable GiselBerkley MD Unavailable Unavailable GiselBerkley MD Unavailable Unavailable [place] DepotBerkley MD Unavailable Unavailable [place] DepotBerkley MD Unavailable Unavailable [place] DepotBerkley MD Unavailable Unavailable Gisel, F Alan MD Unavailable Unavailable Gisel, F Alan MD Unavailable Unavailable Gisel, F Alan MD Unavailable Unavailable [place], F Alan MD Unavailable Unavailable [place], F Alan MD Unavailable Unavailable Gisel, F Alan MD Unavailable Unavailable [place], F Alan MD Unavailable Unavailable [place], F Alan MD Unavailable Unavailable Gisel, F Alan MD Unavailable Unavailable Gisel, F Alan MD Unavailable Unavailable [place], F Alan MD Unavailable Unavailable Gisel, F Alan MD Unavailable Unavailable Gisel, F Alan MD Unavailable Unavailable [place], F Laan MD Unavailable Unavailable [place], F Alan MD Unavailable Unavailable [place], F Alan MD Unavailable Unavailable [place], F Alan MD Unavailable Unavailable [place], F Alan MD Unavailable Unavailable Gisel, F Alan MD Unavailable Unavailable [place], F Alan MD Unavailable Unavailable Gisel, F Alan MD Unavailable Unavailable Gisel, F Alan MD Unavailable Unavailable [place], F Alan MD Unavailable Unavailable Gisel, F Alan MD Unavailable Unavailable Gisel, F Alan MD Unavailable Unavailable Gisel, F Alan MD Unavailable Unavailable Gisel, F Alan MD Unavailable Unavailable [place], F Alan MD Unavailable Unavailable [place], F Alan MD Unavailable Unavailable [place], F Alan MD Unavailable Unavailable Gisel, F Alan MD Unavailable Unavailable Gisel, F Alan MD Unavailable Unavailable Gisel, Berkley [...] is protected by Article 27-F of the [place] State Public Health law. If you continue you may have access to information: Regarding HIV / AIDS; Provided by facilities licensed or operated by the [facility] Office of Mental Health; or Provided by the [facility] Office for People With Developmental Disabilities. If such information is present, then the following [facility] mandated warning applies: This information has been [...] law may result in a fine or nursing home sentence or both. A general authorization for the release of medical or other information is NOT sufficient authorization for further disc losure. 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 [address] [place] [address] 12/02/2020 12:00:00 AM EDT eCW1 ([facility]) Outpatient Attender: Waqas Oakley 0 09/11/2020 10:20:00 AM EDT MEDENT ([facility] ) Outpatient [address] [facility] [id number] 06/02/2020 12:00:00 AM EDT eCW1 (On license of [facility]) Unknown [address] [facility] [id number] 05/14/2020 12:00:00 AM EST eCW1 (On license of [facility]) Outpatient [address] [facility] [id number] 04/24/2020 12:00:00 AM EST eCW1 (On license of [facility]) Outpatient Attender: JAIR Oakley 0 04/16/2020 09:00:00 AM EST MEDENT ([facility] ) Outpatient [address] [facility] [id number] 04/14/2020 12:00:00 AM EST eCW1 (On license of [facility]) Outpatient Attender: Waqas Oakley 1 05/05/2019 09:20:00 AM EST MEDENT ([facility] ) Immunizations Vaccine Date Status Description Data Source(s) COVID-19 VACCINE Pfizer 04/23/2020 12:00:00 AM EST completed [facility] Vaccine Series Complete: YESThis Data wa s Submitted to [facility] Via [employer]. COVID-19 VACCINE Pfizer 04/02/2020 12:00:00 AM EST completed [facility] Vaccine Series Complete: NOThis Data was Submitted to [facility] Via [employer]. Medications Medication Brand Name Start Date Product Form Dose Route Admi nistrative Instructions Pharmacy Instructions Status Indications Reaction Description Data Source(s) Covid-19 vaccine, Unspecified 04/23/2020 12:00:00 AM EST completed [facility]) Medication administered onsite Covid-19 vaccine, Unspecified 04/02/2020 12:00:00 AM EST completed [facility]) Medication administered onsite Insurance Providers Payer name Policy type / Coverage type Policy ID Covered green party ID Covered green party's relationship to garcia Policy Garcia Plan Information [employer] [id number] SP [id number] MEDICARE [id number] SP [id number] A MEDICARE [id number] SP [id number] [employer] [id number] SP [id number] [employer] [id number] SP [id number] [employer] [id number] SP [id number] [facility] [id number] SP [id number] MEDICARE C [id number] S [id number] A [employer] Medigap Part B [id number] Self Medicare Natl Gov't Servi Medicare Primary [id number] Self [id number] A [facility] [id number] SP [id number] MEDICARE [id number] SP [id number] [facility] O [id number] S [id number] MEDICARE C [id number] S [id number] [facility] [id number] SP [id number] [facility] [id number] SP [id number] [employer] PPO O [id number] S [id number] Problems, Conditions, and Diagnoses Code Display Name Description Problem Type Effective Dates Data Source(s) N81.10 Cystocele Cystocele Problem 04/14/2020 12:00:00 AM ES T eCW1 ([facility]) R33.9 Urinary retention Urinary retention Problem 04/14/2020 12:00:00 AM EST eCW1 ([facility]) Surgeries/Procedures Procedure Description Date Indications Data Source(s) OFFICE OUTPATIENT VISIT 25 MINUTES 09/11/2020 12:00:00 AM EDT MEDENT ([facility]) OFFICE OUTPATIENT VISIT 15 MINUTES 04/16/2020 12:00:00 AM EST MEDENT ([facility]) Mammogram 03/26/2020 12:00:00 AM EST M EDENT ([facility]) Results ID Date Data Source [id number] 09/11/2020 10:48:00 AM EDT MEDENT ([facility]) Name Value Range Interpretation Code Description Data Vidhya rce(s) Supporting Document(s) Glucose [Mass/volume] in Serum or Plasma 138 mg/dL 74-99 MEDENT ([facility]) 100-125 mg/dL PRE-DIABETES/FASTING >126 mg/dL DIABETES/FASTING Urea nitrogen [Mass/volume] in Serum or Plasma 19 mg/dL 7-18 MEDENT ([facility]) Sodium [Moles/volume] in Serum or Plasma 143 meq/L 136-145 MED[facility] ([facility]) Creatinine 0.8 mg/dL 0.6-1.3 [facility] Chloride [Moles/volume] in Serum or Plasma 105 meq/L 98-107 MEDENT ([facility]) Carbon dioxide, total [Moles/volume] in Serum or Plasma 29 meq/L 21 -32 MED[facility] ([facility]) Potassium [Moles/volume] in Serum or Plasma 3.8 meq/L 3.5-5.1 MED[facility] ([facility]) Calcium [Mass/volume] in Serum or Plasma 9.3 mg/dL 8.5-10.1 MED[facility] ([facility]) Alkaline phosphatase isoenzyme [Units/volume] in Serum or Pl asma 72 mg/dL 46-116 MED[facility] ([facility]) Aspartate aminotransferase [Enzymatic activity/volume] in Serum or Plasma 16 U/L 15-37 MED[facility] ([facility] ) Total Bilirubin 0.8 mg/dL 0.2-1.0 MEDENT ([facility]) Alanine aminotransferase [Enzymatic activity/volume] in Seru m or Plasma 29 U/L 12-78 MED[facility] ([facility]) Albumin [Mass/volume] in Serum or Plasma 3.9 g/dL 3.4-5.0 MED[facility] ([facility]) Proteinase 3 Ab [Units/volume] in Serum 7.2 g/dL 6.4-8.2 MEDENT ([facility]) A/G Ratio 1.18 CALC 1.00-1.90 [facility] Glomerular filtration rate/1.73 sq M pre dicted among non-blacks [Volume Rate/Area] in Serum or Plasma by Creatinine-based formula (MDRD) Laboratory test result MEDENT ([facility] ) Glomerular filtration rate/1.73 sq M pre dicted among blacks [Volume Rate/Area] in Serum or Plasma by Creatinine-based formula (MDRD) Laboratory test result [facility] ([facility]) <content>CHRONIC KIDNEY DISEASE STAGING PER NKF</content>
<content></content>
<content>STAGE I & II GFR >= 60 NORMAL TO MILDLY DECREASED</content>
<content>STAGE III GFR 30-59 MODERATELY DECREASED</content>
<content>STAGE IV GFR 15-29 SEVERELY DECREASED</content>
<content>STAGE V GFR <15 VERY LITTLE GFR LEFT</content>
<content>ESRD GFR <15 ON NURSING ATTENDANT</content>
<content></content> ID Date Data Source [id number] 09/11/2020 10:48:00 AM EDT [facility]) Name Value Range Interpretation Code Description Data Vidhya rce(s) Supporting Document(s) Hemoglobin A1c/Hemoglobin.total in Blood 6.4 % [facility] Lab Result Notes: Pre-Diabetes 5.7 - 6.4 % Diabetes = or > 6.5% Glucose mean value [Mass/volume] in Blood Estimated fr om glycated hemoglobin 137 mg/dL 60-[address] [facility] ID Date Data Source [id number] 09/11/2020 10:48:00 AM EDT MEDENT ([facility]) Name Value Range Interpretation Code Description Data Vidhya rce(s) Supporting Document(s) Leukocytes [#/volume] in Blood by Automated count 8.1 x10*3/UL 4.1-10 .9 [facility] Erythrocytes [#/volume] in Blood by Automated count 5.02 x10*6/UL 4.2 0-6.30 [facility] Hematocrit [Volume Fraction] of Blood by Automated count 44.5 % 3 7.0-51.0 [facility] Hemoglobin [Mass/volume] in Blood 15.0 g/dL 12.0-18.0 [facility] ([facility]) MCV 88.5 fL 80.0-97.0 [facility]) MCH 29.9 pg 26.0-32.0 MEDENT ([facility]) Platelets [#/volume] in Blood by Automated count 320 x10*3/UL 140-440 [facility] Erythrocyte distribution width [Ratio] by Automated count 12.9 % 11.6-13.7 [facility] ([facility]) MCHC 33.8 g/dL 31.0-38.0 [facility] ([facility]) MPV 7.4 FL 7.8-11.0 [facility]) Lymph % 24.0 % 10.0-58.5 MEDENT ([facility]) Lymph # 1.9 x10*3/UL 0.6-4.1 [facility] ([facility]) Neut % 69.9 % 37.0-92.0 [facility]) Mid % 6.1 % 1.7-9.3 [facility] Mid # 0.5 x10*3/UL 0.1-0.6 [facility] ([facility]) Neut # 5.7 x10*3/UL 2.0-7.8 [facility] ([facility]) ID Date Data Source [id number] 03/04/2020 10:45:00 AM EST MEDENT ([facility]) Name Value Range Interpretation Code Description Data Vidhya rce(s) Supporting Document(s) Glucose [Mass/volume] in Serum or Plasma 101 mg/dL 74-99 [facility] ([facility]) 100-125 mg/dL PRE-DIABETES/FASTING >126 mg/dL DIABETES/FASTING Urea nitrogen [Mass/volume] in Serum or Plasma 18 mg/dL 7-18 [facility] ([facility]) Sodium [Moles/volume] in Serum or Plasma 145 meq/L 136-145 [facility] ([facility]) Creatinine 0.7 mg/dL 0.6-1.3 MED[facility] ([facility]) Chloride [Moles/volume] in Serum or Plasma 106 meq/L 98-107 [facility] ([facility]) Carbon dioxide, total [Moles/volume] in Serum or Plasma 32 meq/L 21 -32 [facility] ([facility]) Potassium [Moles/volume] in Serum or Plasma 4.2 meq/L 3.5-5.1 [facility] ([facility]) Calcium [Mass/volume] in Serum or Plasma 9.1 mg/dL 8.5-10.1 [facility] ([facility]) Alkaline phosphatase isoenzyme [Units/volume] in Serum or Pl asma 73 mg/dL 46-116 [facility] ([facility]) Total Bilirubin 0.5 mg/dL 0.2-1.0 MED[facility] ([facility]) Alanine aminotransferase [Enzymatic activity/volume] in Seru m or Plasma 30 U/L 12-78 [facility] ([facility]) Aspartate aminotransferase [Enzymatic activity/volume] in Serum or Plasma 16 U/L 15-37 [facility] ([facility] ) Proteinase 3 Ab [Units/volume] in Serum 7.0 g/dL 6.4-8.2 [facility] ([facility]) Albumin [Mass/volume] in Serum or Plasma 3.8 g/dL 3.4-5.0 [facility] Glomerular filtration rate/1.73 sq M pre dicted among non-blacks [Volume Rate/Area] in Serum or Plasma by Creatinine-based formula (MDRD) Laboratory test result [facility] Glomerular filtration rate/1.73 sq M pre dicted among blacks [Volume Rate/Area] in Serum or Plasma by Creatinine-based formula (MDRD) Laboratory [facility]) <content>CHRONIC KIDNEY DISEASE STAGING PER NKF</content>
<content></content>
<content>STAGE I & II GFR >= 60 NORMAL TO MILDLY DECREASED</content>
<content>STAGE III GFR 30-59 MODERATELY DECREASED</content>
<content>STAGE IV GFR 15-29 SEVERELY DECREASED</content>
<content>STAGE V GFR <15 VERY LITTLE GFR LEFT</content>
<content>ESRD GFR <15 ON NURSING ATTENDANT</content>
<content></content> A/G Ratio 1.19 CALC 1.00-1.[address] [facility]) ID Date Data Source [id number] 03/04/2020 10:45:00 AM EST [facility] Name Value Range Interpretation Code Description Data Vidhya rce(s) Supporting Document(s) Hemoglobin A1c/Hemoglobin.total in Blood 6.0 % [facility] ([facility]) Lab Result Notes: Pre-Diabetes 5.7 - 6.4 % Diabetes = or > 6.5% Glucose mean value [Mass/volume] in Blood Estimated fr om glycated hemoglobin 125 mg/dL 60-[address] [facility] ID Date Data Source [id number] 03/04/2020 10:45:00 AM EST [facility] Name Value Range Interpretation Code Description Data Vidhya rce(s) Supporting Document(s) Hemoglobin [Mass/volume] in Blood 14.4 g/dL 12.0-18.0 [facility] ([facility]) Erythrocytes [#/volume] in Blood by Automated count 4.71 x10*6/UL 4.2 0-6.30 [facility] ([facility]) Leukocytes [#/volume] in Blood by Automated count 8.7 x10*3/UL 4.1-10 .9 [facility] ([facility]) MCV 86.1 fL 80.0-97.0 [facility] Hematocrit [Volume Fraction] of Blood by Automated count 40.6 % 3 7.0-51.0 [facility] ([facility]) MCH 30.7 pg 26.0-32.0 [facility] Erythrocyte distribution width [Ratio] by Automated count 12.5 % 11.6-13.7 [facility] ([facility]) MCHC 35.6 g/dL 31.0-38.0 [facility] MPV 7.2 FL 7.8-11.0 [facility]) Platelets [#/volume] in Blood by Automated count 299 x10*3/UL 140-440 [facility] ([facility]) Lymph % 25.9 % 10.0-58.5 [facility] Mid % 5.9 % 1.7-9.3 [facility] Neut % 68.2 % 37.0-92.0 [facility] Mid # 0.6 x10*3/UL 0.1-0.6 [facility] ([facility]) Neut # 5.9 x10*3/UL 2.0-7.8 [facility] ([facility]) Lymph # 2.2 x10*3/UL 0.6-4.1 [facility] ([facility]) ID Date Data Source [id number] 03/04/2020 10:45:00 AM EST MED[facility] ([facility]) Name Value Range Interpretation Code Description Data Vidhya rce(s) Supporting Document(s) Hemoglobin A1c/Hemoglobin.total in Blood Laboratory test result [facility] ([facility]) Procedure Social History Code Duration Value Status Description Data Source(s ) Smoking 12/02/2020 12:00:00 AM EDT Former Smoker completed Former Smoker eCW1 ([facility]) Smoking 06/02/2020 12:00:00 AM EDT Former Smoker completed Former Smoker eCW1 ([facility]) Smoking 04/24/2020 12:00:00 AM EST Former Smoker completed Former Smoker eCW1 ([facility]) Smoking 04/24/2020 12:00:00 AM EST Former Smoker completed Former Smoker eCW1 ([facility]) Smoking 04/14/2020 12:00:00 AM EST Former Smoker completed Former Smoker eCW1 ([facility]) Vital Signs ID Date Data Source [id number] Name Value Range Interpretation Code Description Data Source(s) Body weight 154.2 [lb_av] 154.2 [lb_av] eCW1 ([facility]) Body weight 69.94 kg 69.94 kg W1 ([facility]) Body height 62 [in_i] 62 [in_i] W1 ([facility]) Body mass index (BMI) [Ratio] 28.2 kg/m2 28.2 k g/m2 W1 ([facility]) Systolic blood pressure 144 mm[Hg] 144 mm[Hg] e CW1 ([facility]) Diastolic blood pressure 82 mm[Hg] 82 mm[Hg] eCW1 ([facility]) Diastolic blood pressure 68 mm[Hg] 68 mm[Hg] MEDENT ([facility]) Body weight 153.50 [lb_av] 153.50 [lb_av] MEDEN T ([facility]) Body height 62 [in_i] 62 [in_i] MEDENT ([facility]) 5'2" Systolic blood pressure 124 mm[Hg] 124 mm[Hg] M EDENT ([facility]) Oxygen saturation in Arterial blood by Pulse oximetry 92 % 92 % [facility] ([facility]) RM Air Body mass index (BMI) [Ratio] 28.1 kg/m2 28.1 k g/m2 MED[facility] ([facility]) Heart rate 80 /min 80 /min MED[facility] ([facility]) Body weight 150 [lb_av] 150 [lb_av] eCW1 ([facility]) Body height 62 [in_i] 62 [in_i] eCW1 ([facility]) Body mass index (BMI) [Ratio] 27.43 kg/m2 27.43 kg/m2 eCW1 ([facility]) Diastolic blood pressure 76 mm[Hg] 76 mm[Hg] eCW1 ([facility]) Systolic blood pressure 140 mm[Hg] 140 mm[Hg] e CW1 ([facility]) Body weight 150.4 [lb_av] 150.4 [lb_av] eCW1 ([facility]) Body weight 68.22 kg 68.22 kg eCW1 ([facility]) Body height 62 [in_i] 62 [in_i] eCW1 ([facility]) Body mass index (BMI) [Ratio] 27.51 kg/m2 27.51 kg/m2 eCW1 ([facility]) Systolic blood pressure 132 mm[Hg] 132 mm[Hg] e CW1 ([facility]) Diastolic blood pressure 76 mm[Hg] 76 mm[Hg] eCW1 ([facility]) Systolic blood pressure 122 mm[Hg] 122 mm[Hg] M EDENT ([facility]) Diastolic blood pressure 70 mm[Hg] 70 mm[Hg] MEDENT ([facility]) Body height 62 [in_i] 62 [in_i] MEDENT ([facility]) 5'2" Body weight 147.00 [lb_av] 147.00 [lb_av] MEDEN T ([facility]) Body mass index (BMI) [Ratio] 26.9 kg/m2 26.9 k g/m2 MEDENT ([facility]) Body weight 145 [lb_av] 145 [lb_av] eCW1 ([facility]) Body height 62 [in_i] 62 [in_i] eCW1 ([facility]) Body mass index (BMI) [Ratio] 26.52 kg/m2 26.52 kg/m2 eCW1 ([facility]) Heart rate 74 /min 74 /min eCW1 ([facility]) Respiratory rate 18 /min 18 /min eCW1 ([facility]) Systolic blood pressure 122 mm[Hg] 122 mm[Hg] e CW1 ([facility]) Diastolic blood pressure 78 mm[Hg] 78 mm[Hg] eCW1 ([facility]) Diastolic blood pressure 78 mm[Hg] 78 mm[Hg] [facility] ([facility]) Body height 62 [in_i] 62 [in_i] [facility] ([facility]) 5'2" Heart rate 80 /min 80 /min [facility] ([facility]) Systolic blood pressure 124 mm[Hg] 124 mm[Hg] M EDENT ([facility]) Body mass index (BMI) [Ratio] 26.9 kg/m2 26.9 k g/m2 [facility] ([facility]) Body weight 147.00 [lb_av] 147.00 [lb_av] JOE T ([facility])
--- NOTE | 2020-12-31 18:31 | REPVR ---
PROCEDURE INFORMATION: Exam: CT Head Without Contrast Exam date and time: 12/31/2020 5:17 PM Age: 85 years old Clinical indication: Other: Nausea, loss of balance TECHNIQUE: Imaging protocol: Computed tomography of the head without contrast. Radiation optimization: All CT scans at this facility use at least one of these dose optimization techniques: automated exposure control; mA and/or kV adjustment per patient size (includes targeted exams where dose is matched to clinical indication); or iterative reconstruction. COMPARISON: CT Head without contrast 06/18/2018 8:37 AM FINDINGS: Brain: There is no acute intracranial hemorrhage, cerebral edema, or midline shift. Chronic microvascular ischemic changes are seen in the periventricular white matter. Age-related cerebral and cerebellar volume loss is present. Cerebral ventricles: No hydrocephalus. Paranasal sinuses: There is no acute sinusitis. Mastoid air cells: Minor fluid is present in the bilateral mastoid air cells. Orbital cavity: The included orbital structures are unremarkable. Vasculature: Atherosclerotic calcifications are seen involving the cavernous carotid arteries. Bones/joints: Hyperostosis frontalis interna is noted. Soft tissues: Unremarkable. IMPRESSION: 1. No acute intracranial abnormality. 2. Atrophy and chronic deep white matter ischemic changes. Electronically signed by: Moses Hancock On 12/31/2020 18:31:02 PM
[2020-12-31 18:47] LABS: BASO # 0.1 10^3/uL (0.0-0.2); BASO % 0.5 % (0.0-1.0); EOS # 0.1 10^3/uL (0.0-0.5); EOS % 1.2 % (0.0-3.0); HEMATOCRIT 46.4 % (36.0-47.0); HEMOGLOBIN 15.2 g/dl (12.0-15.5); LYMPH # 2.3 10^3/uL (1.5-5.0); LYMPH % 20.9 % (24.0-44.0); MEAN CORPUSCULAR HEMOGLOBIN 30.3 pg (27.0-33.0); MEAN CORPUSCULAR HGB CONC 32.8 g/dl (32.0-36.5); MEAN CORPUSCULAR VOLUME 92.6 fl (80.0-96.0); MONO # 0.7 10^3/uL (0.0-0.8); MONO % 6.4 % (2.0-8.0); NEUTROPHILS # 7.8 10^3/uL (1.5-8.5); NEUTROPHILS % 70.5 % (36.0-66.0); PLATELET COUNT, AUTOMATED 303 10^3/uL (150-450); RED BLOOD COUNT 5.01 10^6/uL (4.00-5.40)
[2020-12-31] MEDS ORDERED: NS 500 ML IV ONE (18:50)
[2020-12-31 19:19] LABS: ALBUMIN 3.8 GM/DL (3.2-5.2); ALT/SGPT 41 U/L (12-78); BILIRUBIN,DIRECT 0.1 MG/DL (0.0-0.2); BILIRUBIN,TOTAL 0.5 MG/DL (0.2-1.0); BLOOD UREA NITROGEN 17 MG/DL (7-18); CALCIUM LEVEL 8.9 MG/DL (8.8-10.2); CARBON DIOXIDE LEVEL 30 MEQ/L (21-32); CHLORIDE LEVEL 107 MEQ/L (98-107); CK-MB VALUE MASS 1.7 NG/ML (<3.6); CPK CREATINE PHOSPHOKINASE 108 U/L (26-192); CREATININE FOR GFR 0.68 MG/DL (0.55-1.30); GLOMERULAR FILTRATION RATE > 60.0 (>32); GLUCOSE, FASTING 100 MG/DL (70-100); LIPASE 132 U/L (73-393); MB/CK RELATIVE INDEX 1.57 (< OR =4); NT-PRO BNP 54 PG/ML (<450); POTASSIUM SERUM 3.7 MEQ/L (3.5-5.1); SODIUM LEVEL 144 MEQ/L (136-145); TOTAL PROTEIN 7.4 GM/DL (6.4-8.2); TROPONIN I < 0.02 NG/ML (< 0.10)
[2020-12-31] MEDS ORDERED: ISOVUE-370 76% 100ML VIAL As Ordered ONE (19:49)
--- NOTE | 2020-12-31 21:25 | REPVR ---
PROCEDURE INFORMATION: Exam: CT Abdomen And Pelvis With Contrast Exam date and time: 12/31/2020 8:10 PM Age: 85 years old Clinical indication: Abdominal pain; Generalized; Additional info: Gen abd pain TECHNIQUE: Imaging protocol: Computed tomography of the abdomen and pelvis with contrast. Radiation optimization: All CT scans at this facility use at least one of these dose optimization techniques: automated exposure control; mA and/or kV adjustment per patient size (includes targeted exams where dose is matched to clinical indication); or iterative reconstruction. Contrast material: ISOVUE 370; Contrast volume: 100 ml; Contrast route: INTRAVENOUS (IV); COMPARISON: BLADDER (LIMITED PELVIC) US 04/10/2020 6:30 PM FINDINGS: Tubes, catheters and devices: Pessary in position. Lungs: Minimal bibasilar infiltrates with fibro-atelectatic change and slight interstitial coarsening. Liver: Normal. No mass. Gallbladder and bile ducts: Status post cholecystectomy. Pancreas: Normal. No ductal dilation. Spleen: There are a few splenic calcifications. Adrenal glands: Normal. No mass. Kidneys and ureters: There are bilateral renal cysts measuring up to 4.8 cm on the left with a Hounsfield measurement of 5. There are minimal associated calcifications and may reflect a Bosniak 2 cyst. No follow-up imaging is recommended. Stomach and bowel: There is colonic diverticulosis without evidence of diverticulitis. Appendix: There are no changes of appendicitis. A normal appendix is not seen. Intraperitoneal space: Unremarkable. No free air. No significant fluid collection. Vasculature: There is moderate atherosclerotic calcification of the abdominal aorta with extension into the iliac arteries. Lymph nodes: Unremarkable. No enlarged lymph nodes. Urinary bladder: Unremarkable as visualized. Reproductive: Status post hysterectomy. Bones/joints: Slight anterior wedge configuration with superior endplate irregularity involving T12 which appears to be chronic. Soft tissues: Unremarkable. IMPRESSION: 1. Minimal bibasilar pulmonary infiltrates with fibro-atelectatic change and slight interstitial coarsening consistent with pneumonia. 2. There has been prior cholecystectomy and hysterectomy. 3. Colonic diverticulosis without diverticulitis. 4. Otherwise negative CT abdomen/pelvis. COMMENTS: Consistent with the [employer]'s Incidental Findings Committee white paper (J Am Renetta Radiol 2018): Any incidental renal lesion less than 1 cm or classified as too small to characterize, or any incidental cystic renal lesion characterized as simple-appearing, is likely benign. No follow-up imaging is recommended for these lesions per consensus recommendations based on imaging criteria. Electronically signed by: Denys De Leon On 12/31/2020 21:24:18 PM
[2020-12-31] MEDS ORDERED: AZITHROMYCIN INJ 500 MG, VIAL MATE ADAPTER 1 EACH in NS 250 ML IV ONE (21:45)
[2020-12-31] MEDS ORDERED: cefTRIAXone SOD 1 GM in D5W MINI-BAG PLUS 50 ML IV ONE (21:45)
[2020-12-31] MEDS ORDERED: MAALOX 30 ML SUSP *UDC PO PRN (22:45)
[2020-12-31] MEDS ORDERED: MECLIZINE 25 MG TABLET PO PRN (22:45)
[2020-12-31] MEDS ORDERED: MOM 30ML SUSPENSION UDC PO PRN (22:45)
[2020-12-31] MEDS ORDERED: ACETAMINOPHEN TAB 650MG DOSE (2X325MG) PO PRN (22:45)
--- NOTE | 2020-12-31 22:49 | HPEPDOC ---
[facility] Medical History & Physical Date of Admission Dec 31, 2020 Date of Service: Dec 31, 2020 Attending Physician: RUT MARTIN MD History and Physical CHIEF COMPLAINT: [85 y/o female c/o dizziness, fatigue x3 days] HISTORY OF PRESENT ILLNESS: [This is an 85 y/o female with a pmh of dementia and hld who presents to our ED with her daughter, Samreen, with a cc of dizziness and fatigue that has persisted for approx 3-4 days. Patient herself is pleasantly confused and a somewhat poor historian. She is somnolent throughout the exam, however easily arousable. Daughter provides history. Apparently starting approx 3-4 days ago, patient began to experience dizzy spells upon position change, especially when standing out of bed. Patient would either have to sit back down or grab onto something to stabilize herself. Daughter believes that her balance was somewhat affected the first day or so, as patient began using a walker for assistance with walking, when at baseline she typically walks without assistance. Daughter states that she believes that the dizziness caused patient to stay in bed for the next few days as patient was somnolent and did not get up and this is not typical of her. Daughter states that she has also noticed a decreased appetite during this time. Denies any fevers, chills, n/v/d/c, dysuria, chest pain, cough, sob. Patient given meclizine to relief in the ED. Patient also found to have +orthostats and a pneumonia on further workup performed in the ED. ] PAST MEDICAL HISTORY: 1. [See HPI PAST SURGICAL HISTORY: 1. [Hysterectomy]. 2. [Cholecystectomy]. SOCIAL HISTORY: Resides in: [[facility]] Tobacco use:[Denies] ETOH: [Denies] Illicit drug use: [Denies] FAMILY HISTORY: Reviewed - none pertinent ALLERGIES: Please see below. REVIEW OF SYSTEMS: CONSTITUTIONAL: [Denies fevers, chills]. HEENT: [See HPI. Denies uri type sx]. CARDIOVASCULAR: [Denies chest pain, palpitations]. RESPIRATORY: [Denies sob, cough]. GASTROINTESTINAL: [Denies abd pain, n/v/d/c]. GENITOURINARY: [Denies dysuria]. SKIN: [Denies rash]. MUSCULOSKELETAL: [Denies acute joint/back pain]. NEUROLOGICAL: [Denies syncope, paresthesias]. ENDOCRINE: [Denies hx of DM]. HEMATOLOGIC/LYMPHATIC: [Denies hx of vte]. HOME MEDICATIONS: Please see below. PHYSICAL EXAMINATION: VITAL SIGNS: Please see below. GENERAL APPEARANCE: [Somnolent but easily arousable 85 y/o female resting comfortably in bed. She does not appear to be in any acute distress]. HEENT: [No mass or lesion. EOMI. No scleral icterus. Nares patent. oral mucosa moist]. CARDIOVASCULAR: [Regular rate, rhythm. No murmurs, rubs, gallops]. LUNGS: [Good air flow b/l. Coarse breath sounds and rales appreciated at b/l bases]. ABDOMEN: [Soft, nontender]. MUSCULOSKELETAL: [No joint deformity appreciated]. EXTREMITIES: [No pedal edema appreciated. Pulses intact. No overlying skin changes]. NEUROLOGICAL: [Pleasantly confused. Speech clear. No focal deficits]. PSYCHIATRIC: [Pleasantly confused]. LABORATORY DATA: See below. IMAGING: [CXR: FINDINGS: The mediastinum and cardiac silhouette are normal. Chronic elevation to the right hemidiaphragm again noted. The lung irizarry are clear and without acute consolidation, effusion, or pneumothorax. The skeletal structures are intact and normal. IMPRESSION: No acute cardiopulmonary process. Head CT: FINDINGS: Brain: There is no acute intracranial hemorrhage, cerebral edema, or midline shift. Chronic microvascular ischemic changes are seen in the periventricular white matter. Age-related cerebral and cerebellar volume loss is present. Cerebral ventricles: No hydrocephalus. Paranasal sinuses: There is no acute sinusitis. Mastoid air cells: Minor fluid is present in the bilateral mastoid air cells. Orbital cavity: The included orbital structures are unremarkable. Vasculature: Atherosclerotic calcifications are seen involving the cavernous carotid arteries. Bones/joints: Hyperostosis frontalis interna is noted. Soft tissues: Unremarkable. IMPRESSION: 1. No acute intracranial abnormality. 2. Atrophy and chronic deep white matter ischemic changes. CT Abd/pelvis: FINDINGS: Tubes, catheters and devices: Pessary in position. Lungs: Minimal bibasilar infiltrates with fibro-atelectatic change and slight interstitial coarsening. Liver: Normal. No mass. Gallbladder and bile ducts: Status post cholecystectomy. Pancreas: Normal. No ductal dilation. Spleen: There are a few splenic calcifications. Adrenal glands: Normal. No mass. Kidneys and ureters: There are bilateral renal cysts measuring up to 4.8 cm on the left with a Hounsfield measurement of 5. There are minimal associated calcifications and may reflect a Bosniak 2 cyst. No follow-up imaging is recommended. Stomach and bowel: There is colonic diverticulosis without evidence of diverticulitis. Appendix: There are no changes of appendicitis. A normal appendix is not seen. Intraperitoneal space: Unremarkable. No free air. No significant fluid collection. Vasculature: There is moderate atherosclerotic calcification of the abdominal aorta with extension into the iliac arteries. Lymph nodes: Unremarkable. No enlarged lymph nodes. Urinary bladder: Unremarkable as visualized. Reproductive: Status post hysterectomy. Bones/joints: Slight anterior wedge configuration with superior endplate irregularity involving T12 which appears to be chronic. Soft tissues: Unremarkable. IMPRESSION: 1. Minimal bibasilar pulmonary infiltrates with fibro-atelectatic change and slight interstitial coarsening consistent with pneumonia. 2. There has been prior cholecystectomy and hysterectomy. 3. Colonic diverticulosis without diverticulitis. 4. Otherwise negative CT abdomen/pelvis. ] MICROBIOLOGY: Please see below. ASSESSMENT: [This is an 85 y/o female with a pmh of dementia and hld who presents to our ED with her daughter, Samreen, with a cc of dizziness and fatigue that has persisted for approx 3-4 days. Patient given meclizine to relief in the ED. Patient also found to have +orthostats and a pneumonia on further workup performed in the ED.]. . PLAN: 1. [Vertigo - Most likely 2/2 orthostasis. Patient found to have positive orthostats in the ED - Patient also responded well to meclizine - Will give ivf overnight and recheck orthostats in the am - Will continue meclizine - If dizziness does not respond to ivf, can consider vestibular rehab - Fall precautions - admit to med surg under obs 2. Community acquired pneumonia - Patient found to have small pneumonia upon imaging in the ED. Potentially this is the cause of fatigue and dehydration leading to orthostasis - Patient not meeting sirs criteria at the time of writing this note - Rocephin/doxy while in house, patient could likely rapidly be transitioned to oral abx d/t mild nature of symptoms 3. HTN Urgency - start amlodpine 4. HLD - continue statin, asa DVT prophylaxis - mechanical]. Vital Signs Vital Signs Date Time Temp Pulse Resp B/P (MAP) Pulse Ox O2 Delivery O2 Flow Rate FiO2 12/31/20 21:31 91 12/31/20 21:30 165/98 (120) 12/31/20 21:16 16 92 Room Air 12/31/20 17:31 97.1 Laboratory Data Labs 24H Laboratory Tests 2 12/31/20 17:46: Immature Granulocyte % (Auto) 0.5, Neutrophils (%) (Auto) 70.5H, Lymphocytes (%) (Auto) 20.9L, Monocytes (%) (Auto) 6.4, Eosinophils (%) (Auto) 1.2, Basophils (%) (Auto) 0.5, Neutrophils # (Auto) 7.8, Lymphocytes # (Auto) 2.3, Monocytes # (Auto) 0.7, Eosinophils # (Auto) 0.1, Basophils # (Auto) 0.1, Nucleated Red Blood Cells % (auto) 0.0, Anion Gap 7L, Glomerular Filtration Rate > 60.0, Calcium Level 8.9, Total Bilirubin 0.5, Direct Bilirubin 0.1, Aspartate Amino Transf (AST/SGOT) 22, Alanine Aminotransferase (ALT/SGPT) 41, Alkaline Phosphatase 71, Total Creatine Kinase 108, Creatine Kinase MB 1.7, Creatine Kinase MB Relative Index 1.57, Troponin I < 0.02, RN-Fuj-N-Type Natriuretic Peptide 54, Total Protein 7.4, Albumin 3.8, Albumin/Globulin Ratio 1.1L, Lipase 132, Thyroid Stimulating Hormone (TSH) 3.240 12/31/20 18:14: Urine Color STRAW, Urine Appearance HAZY, Urine pH 6.0, Urine Specific [place] 1.005, Urine Protein NEGATIVE, Urine Glucose (UA) NEGATIVE, Urine Ketones NEGATIVE, Urine Blood NEGATIVE, Urine Nitrite NEGATIVE, Urine Bilirubin NEGATIVE, Urine Urobilinogen 0.2, Urine Leukocyte Esterase NEGATIVE, Urine WBC (Auto) 2, Urine RBC (Auto) 0, Urine Hyaline Casts (Auto) 0, Urine Bacteria (Auto) 1+H, Urine Squamous Epithelial Cells 2, Urine Mucus (Auto) SMALL, Urine Sperm (Auto) CBC/BMP Laboratory Tests 12/31/20 17:46 Home Medications Scheduled Aspirin (Aspirin) 325 Mg Tablet, 1 TAB PO DAILY for fever Miscellaneous Medications Atorvastatin Calcium (Atorvastatin Calcium) 10 Mg Tablet Allergies Coded Allergies: No Known Allergies (Unverified , 06/18/18) A-FIB/CHADSVASC A-FIB History Current/History of A-Fib/PAF?: No JOSE PICKENS Dec 31, 2020 22:49 RUT MARTIN MD Jan 01, 2021 03:01
--- OUTSIDE RECORDS SUMMARY | 2020-12-31 23:08 | CCD ---
Author Author [facility] Organization [facility] Address Unknown Phone Unavailable Care Team Providers Care Color Making Supervisor Name Role Phone Kesha EMERSON JR PA-C [...] PA-C Unavailable Unavailable GiselBerkley MD Unavailable Unavailable SecondcreekBerkley MD Unavailable Unavailable SecondcreekBerkley MD Unavailable Unavailable GiselBerkley MD Unavailable Unavailable GiselBerkley MD Unavailable Unavailable SecondcreekBerkley MD Unavailable Unavailable GiselBerkley MD Unavailable Unavailable SecondcreekBerkley MD Unavailable Unavailable SecondcreekBerkley MD Unavailable Unavailable GiselBerkley MD Unavailable Unavailable GiselBerkley MD Unavailable Unavailable GiselBerkley MD Unavailable Unavailable GiselBerkley MD Unavailable Unavailable GiselBerkley MD Unavailable Unavailable GiselBerkley MD Unavailable Unavailable GiselBerkley MD Unavailable Unavailable SecondcreekBerkley MD Unavailable Unavailable SecondcreekBerkley MD Unavailable Unavailable GiselBerkley MD Unavailable Unavailable GiselBerkley MD Unavailable Unavailable SecondcreekBerkley MD Unavailable Unavailable GiselBerkley MD Unavailable Unavailable GiselBerkley MD Unavailable Unavailable GiselBerkley MD Unavailable Unavailable SecondcreekBerkley MD Unavailable Unavailable SecondcreekBerkley MD Unavailable Unavailable GiselBerkley MD Unavailable Unavailable SecondcreekBerkley MD Unavailable Unavailable GiselBerkley MD Unavailable Unavailable SecondcreekBerkley MD Unavailable Unavailable GiselBerkley MD Unavailable Unavailable GiselBerkley MD Unavailable Unavailable GiselBerkley white MD Unavailable Unavailable GiselBerkley MD Unavailable Unavailable SecondcreekBerkley MD Unavailable Unavailable GiselBerkley MD Unavailable Unavailable SecondcreekBerkley MD Unavailable Unavailable SecondcreekBerkley MD Unavailable Unavailable GiselBerkley white MD Unavailable Unavailable SecondcreekBerkley MD Unavailable Unavailable SecondcreekBerkley MD Unavailable Unavailable SecondcreekBerkley MD Unavailable Unavailable SecondcreekBerkley MD Unavailable Unavailable SecondcreekBerkley MD Unavailable Unavailable SecondcreekBerkley MD Unavailable Unavailable SecondcreekBerkley MD Unavailable Unavailable GiselBerkley MD Unavailable Unavailable SecondcreekBerkley MD Unavailable Unavailable GiselBerkley MD Unavailable Unavailable GiselBerkley MD Unavailable Unavailable SecondcreekBerkley MD Unavailable Unavailable SecondcreekBerkley MD Unavailable Unavailable SecondcreekBerkley MD Unavailable Unavailable Gisel, F Alan MD Unavailable Unavailable Gisel, F Alan MD Unavailable Unavailable Gisel, F Alan MD Unavailable Unavailable Secondcreek, F Alan MD Unavailable Unavailable Secondcreek, F Alan MD Unavailable Unavailable Gisel, F Alan MD Unavailable Unavailable Secondcreek, F Alan MD Unavailable Unavailable Secondcreek, F Alan MD Unavailable Unavailable Gisel, F Alan MD Unavailable Unavailable Gisel, F Alan MD Unavailable Unavailable Secondcreek, F Alan MD Unavailable Unavailable Gisel, F Alan MD Unavailable Unavailable Gisel, F Alan MD Unavailable Unavailable Secondcreek, F Alan MD Unavailable Unavailable Secondcreek, F Alan MD Unavailable Unavailable Secondcreek, F Alan MD Unavailable Unavailable Secondcreek, F Alan MD Unavailable Unavailable Secondcreek, F Alan MD Unavailable Unavailable Gisel, F Alan MD Unavailable Unavailable Secondcreek, F Alan MD Unavailable Unavailable Gisel, F Alan MD Unavailable Unavailable Gisel, F Alan MD Unavailable Unavailable Secondcreek, F Alan MD Unavailable Unavailable Gisel, F Alan MD Unavailable Unavailable Gisel, F Alan MD Unavailable Unavailable Gisel, F Alan MD Unavailable Unavailable Gisel, F Alan MD Unavailable Unavailable Secondcreek, F Alan MD Unavailable Unavailable Secondcreek, F Alan MD Unavailable Unavailable Secondcreek, F Alan MD Unavailable Unavailable Gisel, F [...] is protected by Article 27-F of the [place] State Public Health law. If you continue you may have access to information: Regarding HIV / AIDS; Provided by facilities licensed or operated by the [facility] Office of Mental Health; or Provided by the [facility] Office for People With Developmental Disabilities. If such information is present, then the following [facility] mandated warning applies: This information [...] law may result in a fine or chcf sentence or both. A general authorization for the release of medical or other information is NOT sufficient authorization for further disc losure. 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 [id number] 06/02/2020 12:00:00 AM EDT eCW1 ([facility]) Unknown [address] [facility] [id number] 05/14/2020 12:00:00 AM EST eCW1 ([facility]) Outpatient [address] [facility] [id number] 04/24/2020 12:00:00 AM EST eCW1 ([facility]) Outpatient Attender: JAIR Oakley 0 04/16/2020 09:00:00 AM EST MEDENT ([facility] ) Outpatient [address] [facility] [id number] 04/14/2020 12:00:00 AM EST eCW1 ([facility]) Outpatient Attender: Waqas Oakley 1 05/05/2019 09:20:00 AM EST MEDENT ([facility] ) Immunizations Vaccine Date Status Description Data Source(s) COVID-19 VACCINE Pfizer 04/23/2020 12:00:00 AM EST completed [facility] Vaccine Series Complete: YESThis Data wa s Submitted to [facility]. COVID-19 VACCINE Pfizer 04/02/2020 12:00:00 AM EST completed [facility] Vaccine Series Complete: NOThis Data was Submitted to [facility]. Medications Medication Brand Name Start Date Product Form Dose Route Admi nistrative Instructions Pharmacy Instructions Status Indications Reaction Description Data Source(s) Covid-19 vaccine, Unspecified 04/23/2020 12:00:00 AM EST completed [facility] ([facility]) Medication administered onsite Covid-19 vaccine, Unspecified 04/02/2020 12:00:00 AM EST completed [facility]) Medication administered onsite Insurance Providers Payer name Policy type / Coverage type Policy ID Covered democrat ID Covered democrat's relationship to garcia Policy Garcia Plan Information [employer] [id number] SP [id number] MEDICARE [id number] SP [id number] A MEDICARE [id number] SP [id number] [employer] [id number] SP [id number] [employer] [id number] SP [id number] [employer] [id number] SP [id number] [facility] [id number] SP [id number] MEDICARE C [id number] S [id number] A [employer] Medigap Part B [id number] Self Medicare Natl Gov't Servi Medicare Primary [id number] Self [id number] A [facility] [id number] SP [id number] MEDICARE [id number] SP [id number] [facility] O [id number] S [id number] MEDICARE C [id number] S [id number] [facility] [id number] SP [id number] [facility] [id number] SP [id number] [employer] PPO O [id number] S [id number] Problems, Conditions, and Diagnoses Code Display Name Description Problem Type Effective Dates Data Source(s) N81.10 Cystocele Cystocele Problem 04/14/2020 12:00:00 AM ES T eCW1 ([facility]) R33.9 Urinary retention Urinary retention Problem 04/14/2020 12:00:00 AM EST eCW1 ([facility]) Surgeries/Procedures Procedure Description Date Indications Data Source(s) OFFICE OUTPATIENT VISIT 25 MINUTES 09/11/2020 12:00:00 AM EDT MEDENT ([facility]) OFFICE OUTPATIENT VISIT 15 MINUTES 04/16/2020 12:00:00 AM EST MEDENT ([facility]) Mammogram 03/26/2020 12:00:00 AM EST M EDENT ([facility]) Results ID Date Data Source [id number] 09/11/2020 10:48:00 AM EDT MEDENT ([facility]) Name Value Range Interpretation Code Description Data Vidhya rce(s) Supporting Document(s) Glucose [Mass/volume] in Serum or Plasma 138 mg/dL 74-99 MEDENT ([facility]) 100-125 mg/dL PRE-DIABETES/FASTING >126 mg/dL DIABETES/FASTING Urea nitrogen [Mass/volume] in Serum or Plasma 19 mg/dL 7-18 MEDENT ([facility]) Sodium [Moles/volume] in Serum or Plasma 143 meq/L 136-145 MEDENT ([facility]) Creatinine 0.8 mg/dL 0.6-1.3 [facility]) Chloride [Moles/volume] in Serum or Plasma 105 meq/L 98-107 MEDENT ([facility]) Carbon dioxide, total [Moles/volume] in Serum or Plasma 29 meq/L 21 -32 MEDENT ([facility]) Potassium [Moles/volume] in Serum or Plasma 3.8 meq/L 3.5-5.1 MEDENT ([facility]) Calcium [Mass/volume] in Serum or Plasma 9.3 mg/dL 8.5-10.1 MEDENT ([facility]) Alkaline phosphatase isoenzyme [Units/volume] in Serum or Pl asma 72 mg/dL 46-116 MEDENT ([facility]) Aspartate aminotransferase [Enzymatic activity/volume] in Serum or Plasma 16 U/L 15-37 MEDENT ([facility] ) Total Bilirubin 0.8 mg/dL 0.2-1.0 MEDENT ([facility]) Alanine aminotransferase [Enzymatic activity/volume] in Seru m or Plasma 29 U/L 12-78 MEDENT ([facility]) Albumin [Mass/volume] in Serum or Plasma 3.9 g/dL 3.4-5.0 MEDENT ([facility]) Proteinase 3 Ab [Units/volume] in Serum 7.2 g/dL 6.4-8.2 MEDENT ([facility]) A/G Ratio 1.18 CALC 1.00-1.90 [facility] Glomerular filtration rate/1.73 sq M pre dicted among non-blacks [Volume Rate/Area] in Serum or Plasma by Creatinine-based formula (MDRD) Laboratory test result MEDENT ([facility] ) Glomerular filtration rate/1.73 sq M pre dicted among blacks [Volume Rate/Area] in Serum or Plasma by Creatinine-based formula (MDRD) Laboratory test result [facility] ([facility]) <content>CHRONIC KIDNEY DISEASE STAGING PER NKF</content>
<content></content>
<content>STAGE I & II GFR >= 60 NORMAL TO MILDLY DECREASED</content>
<content>STAGE III GFR 30-59 MODERATELY DECREASED</content>
<content>STAGE IV GFR 15-29 SEVERELY DECREASED</content>
<content>STAGE V GFR <15 VERY LITTLE GFR LEFT</content>
<content>ESRD GFR <15 ON OIL WELL SERVICES DISPATCHER</content>
<content></content> ID Date Data Source [id number] 09/11/2020 10:48:00 AM EDT [facility] ([facility]) Name Value Range Interpretation Code Description Data Vidhya rce(s) Supporting Document(s) Hemoglobin A1c/Hemoglobin.total in Blood 6.4 % [facility] Lab Result Notes: Pre-Diabetes 5.7 - 6.4 % Diabetes = or > 6.5% Glucose mean value [Mass/volume] in Blood Estimated fr om glycated hemoglobin 137 mg/dL 60-110 [facility] ID Date Data Source [id number] 09/11/2020 10:48:00 AM EDT MEDENT ([facility]) Name Value Range Interpretation Code Description Data Vidhya rce(s) Supporting Document(s) Leukocytes [#/volume] in Blood by Automated count 8.1 x10*3/UL 4.1-10 .9 [facility] Erythrocytes [#/volume] in Blood by Automated count 5.02 x10*6/UL 4.2 0-6.30 [facility] Hematocrit [Volume Fraction] of Blood by Automated count 44.5 % 3 7.0-51.0 MED[facility] ([facility]) Hemoglobin [Mass/volume] in Blood 15.0 g/dL 12.0-18.0 MEDENT ([facility]) MCV 88.5 fL 80.0-97.0 [facility] MCH 29.9 pg 26.0-32.0 MEDENT ([facility]) Platelets [#/volume] in Blood by Automated count 320 x10*3/UL 140-440 [facility] Erythrocyte distribution width [Ratio] by Automated count 12.9 % 11.6-13.7 MEDENT ([facility]) MCHC 33.8 g/dL 31.0-38.0 [facility] ([facility]) MPV 7.4 FL 7.8-11.0 [facility] ([facility]) Lymph % 24.0 % 10.0-58.5 MEDENT ([facility]) Lymph # 1.9 x10*3/UL 0.6-4.1 MEDENT ([facility]) Neut % 69.9 % 37.0-92.0 [facility]) Mid % 6.1 % 1.7-9.3 [facility] Mid # 0.5 x10*3/UL 0.1-0.6 MEDENT ([facility]) Neut # 5.7 x10*3/UL 2.0-7.8 MEDENT ([facility]) ID Date Data Source [id number] 03/04/2020 10:45:00 AM EST MEDENT ([facility]) Name Value Range Interpretation Code Description Data Vidhya rce(s) Supporting Document(s) Glucose [Mass/volume] in Serum or Plasma 101 mg/dL 74-99 MEDENT ([facility]) 100-125 mg/dL PRE-DIABETES/FASTING >126 mg/dL DIABETES/FASTING Urea nitrogen [Mass/volume] in Serum or Plasma 18 mg/dL 7-18 MEDENT ([facility]) Sodium [Moles/volume] in Serum or Plasma 145 meq/L 136-145 MED[facility] ([facility]) Creatinine 0.7 mg/dL 0.6-1.3 MEDENT ([facility]) Chloride [Moles/volume] in Serum or Plasma 106 meq/L 98-107 MEDENT ([facility]) Carbon dioxide, total [Moles/volume] in Serum or Plasma 32 meq/L 21 -32 MED[facility] ([facility]) Potassium [Moles/volume] in Serum or Plasma 4.2 meq/L 3.5-5.1 MEDENT ([facility]) Calcium [Mass/volume] in Serum or Plasma 9.1 mg/dL 8.5-10.1 MEDENT ([facility]) Alkaline phosphatase isoenzyme [Units/volume] in Serum or Pl asma 73 mg/dL 46-116 MEDENT ([facility]) Total Bilirubin 0.5 mg/dL 0.2-1.0 MEDENT ([facility]) Alanine aminotransferase [Enzymatic activity/volume] in Seru m or Plasma 30 U/L 12-78 MEDENT ([facility]) Aspartate aminotransferase [Enzymatic activity/volume] in Serum or Plasma 16 U/L 15-37 MEDENT ([facility] ) Proteinase 3 Ab [Units/volume] in Serum 7.0 g/dL 6.4-8.2 MEDENT ([facility]) Albumin [Mass/volume] in Serum or Plasma 3.8 g/dL 3.4-5.0 [facility] Glomerular filtration rate/1.73 sq M pre dicted among non-blacks [Volume Rate/Area] in Serum or Plasma by Creatinine-based formula (MDRD) Laboratory test result [facility] ([facility] Glomerular filtration rate/1.73 sq M pre dicted among blacks [Volume Rate/Area] in Serum or Plasma by Creatinine-based formula (MDRD) Laboratory [facility]) <content>CHRONIC KIDNEY DISEASE STAGING PER NKF</content>
<content></content>
<content>STAGE I & II GFR >= 60 NORMAL TO MILDLY DECREASED</content>
<content>STAGE III GFR 30-59 MODERATELY DECREASED</content>
<content>STAGE IV GFR 15-29 SEVERELY DECREASED</content>
<content>STAGE V GFR <15 VERY LITTLE GFR LEFT</content>
<content>ESRD GFR <15 ON OIL WELL SERVICES DISPATCHER</content>
<content></content> A/G Ratio 1.19 CALC 1.00-1.90 [facility] ([facility]) ID Date Data Source [id number] 03/04/2020 10:45:00 AM EST [facility] ([facility]) Name Value Range Interpretation Code Description Data Vidhya rce(s) Supporting Document(s) Hemoglobin A1c/Hemoglobin.total in Blood 6.0 % [facility] ([facility]) Lab Result Notes: Pre-Diabetes 5.7 - 6.4 % Diabetes = or > 6.5% Glucose mean value [Mass/volume] in Blood Estimated fr om glycated hemoglobin 125 mg/dL 60-110 [facility] ID Date Data Source [id number] 03/04/2020 10:45:00 AM EST [facility]) Name Value Range Interpretation Code Description Data Vidhya rce(s) Supporting Document(s) Hemoglobin [Mass/volume] in Blood 14.4 g/dL 12.0-18.0 MEDENT ([facility]) Erythrocytes [#/volume] in Blood by Automated count 4.71 x10*6/UL 4.2 0-6.30 MED[facility] ([facility]) Leukocytes [#/volume] in Blood by Automated count 8.7 x10*3/UL 4.1-10 .9 MED[facility] ([facility]) MCV 86.1 fL 80.0-97.0 [facility] Hematocrit [Volume Fraction] of Blood by Automated count 40.6 % 3 7.0-51.0 MEDENT ([facility]) MCH 30.7 pg 26.0-32.0 [facility] Erythrocyte distribution width [Ratio] by Automated count 12.5 % 11.6-13.7 MED[facility] ([facility]) MCHC 35.6 g/dL 31.0-38.0 [facility] MPV 7.2 FL 7.8-11.0 [facility] Platelets [#/volume] in Blood by Automated count 299 x10*3/UL 140-440 MED[facility] ([facility]) Lymph % 25.9 % 10.0-58.5 [facility] Mid % 5.9 % 1.7-9.3 [facility] ([facility] Neut % 68.2 % 37.0-92.0 [facility] Mid # 0.6 x10*3/UL 0.1-0.6 MED[facility] ([facility]) Neut # 5.9 x10*3/UL 2.0-7.8 [facility] ([facility]) Lymph # 2.2 x10*3/UL 0.6-4.1 MED[facility] ([facility]) ID Date Data Source [id number] 03/04/2020 10:45:00 AM EST MEDENT ([facility]) Name Value Range Interpretation Code Description Data Vidhya rce(s) Supporting Document(s) Hemoglobin A1c/Hemoglobin.total in Blood Laboratory test result [facility] ([facility]) Procedure Social History Code Duration Value Status Description Data Source(s ) Smoking 12/02/2020 12:00:00 AM EDT Former Smoker completed Former Smoker eCW1 ([facility]) Smoking 06/02/2020 12:00:00 AM EDT Former Smoker completed Former Smoker eCW1 ([facility]) Smoking 04/24/2020 12:00:00 AM EST Former Smoker completed Former Smoker eCW1 ([facility]) Smoking 04/24/2020 12:00:00 AM EST Former Smoker completed Former Smoker eCW1 ([facility]) Smoking 04/14/2020 12:00:00 AM EST Former Smoker completed Former Smoker eCW1 ([facility]) Vital Signs ID Date Data Source UNK Name Value Range Interpretation Code Description Data Source(s) Body weight 154.2 [lb_av] 154.2 [lb_av] eCW1 ([facility]) Body weight 69.94 kg 69.94 kg W1 ([facility]) Body height 62 [in_i] 62 [in_i] W1 ([facility]) Body mass index (BMI) [Ratio] 28.2 kg/m2 28.2 k g/m2 W1 ([facility]) Systolic blood pressure 144 mm[Hg] 144 mm[Hg] e CW1 ([facility]) Diastolic blood pressure 82 mm[Hg] 82 mm[Hg] eCW1 ([facility]) Diastolic blood pressure 68 mm[Hg] 68 mm[Hg] [facility] ([facility]) Body height 62 [in_i] 62 [in_i] [facility] ([facility]) 5'2" Body weight 153.50 [lb_av] 153.50 [lb_av] MEDEN T ([facility]) Oxygen saturation in Arterial blood by Pulse oximetry 92 % 92 % [facility] ([facility]) RM Air Body mass index (BMI) [Ratio] 28.1 kg/m2 28.1 k g/m2 MEDENT ([facility]) Heart rate 80 /min 80 /min MEDENT ([facility]) Systolic blood pressure 124 mm[Hg] 124 mm[Hg] M EDENT ([facility]) Diastolic blood pressure 76 mm[Hg] 76 mm[Hg] eCW1 ([facility]) Body weight 150 [lb_av] 150 [lb_av] eCW1 ([facility]) Body height 62 [in_i] 62 [in_i] eCW1 ([facility]) Body mass index (BMI) [Ratio] 27.43 kg/m2 27.43 kg/m2 eCW1 ([facility]) Systolic blood pressure 140 mm[Hg] 140 mm[Hg] e CW1 ([facility]) Body weight 150.4 [lb_av] 150.4 [lb_av] eCW1 ([facility]) Body weight 68.22 kg 68.22 kg eCW1 ([facility]) Body height 62 [in_i] 62 [in_i] eCW1 ([facility]) Body mass index (BMI) [Ratio] 27.51 kg/m2 27.51 kg/m2 eCW1 ([facility]) Systolic blood pressure 132 mm[Hg] 132 mm[Hg] e CW1 ([facility]) Diastolic blood pressure 76 mm[Hg] 76 mm[Hg] eCW1 ([facility]) Systolic blood pressure 122 mm[Hg] 122 mm[Hg] M EDENT ([facility]) Diastolic blood pressure 70 mm[Hg] 70 mm[Hg] MEDENT ([facility]) Body height 62 [in_i] 62 [in_i] MEDENT ([facility]) 5'2" Body weight 147.00 [lb_av] 147.00 [lb_av] MEDEN T ([facility]) Body mass index (BMI) [Ratio] 26.9 kg/m2 26.9 k g/m2 MEDENT ([facility]) Body weight 145 [lb_av] 145 [lb_av] eCW1 ([facility]) Body height 62 [in_i] 62 [in_i] eCW1 ([facility]) Body mass index (BMI) [Ratio] 26.52 kg/m2 26.52 kg/m2 eCW1 ([facility]) Heart rate 74 /min 74 /min eCW1 ([facility]) Respiratory rate 18 /min 18 /min eCW1 ([facility]) Systolic blood pressure 122 mm[Hg] 122 mm[Hg] e CW1 ([facility]) Diastolic blood pressure 78 mm[Hg] 78 mm[Hg] eCW1 ([facility]) Diastolic blood pressure 78 mm[Hg] 78 mm[Hg] [facility] ([facility]) Body height 62 [in_i] 62 [in_i] [facility] ([facility]) 5'2" Heart rate 80 /min 80 /min [facility] ([facility]) Systolic blood pressure 124 mm[Hg] 124 mm[Hg] M EDENT ([facility]) Body mass index (BMI) [Ratio] 26.9 kg/m2 26.9 k g/m2 [facility] ([facility]) Body weight 147.00 [lb_av] 147.00 [lb_av] JOE T ([facility])
[2021-01-01] MEDS: NS 1,000 ML IV SCH ×2 (02:08→09:56)
[2021-01-01] MEDS ORDERED: HYDROCHLOROthiazide 6.25MG PER 1/4TAB PO SCH (03:00)
[2021-01-01] MEDS: DOXYCYCLINE HYCLATE 100 MG in D5W MINI-BAG PLUS 100 ML IV SCH ×2 (06:12→18:06)
[2021-01-01] MEDS ORDERED: ASPI-264 PO (06:38)
[2021-01-01] MEDS ORDERED: ATOR1TAB19 PO (06:38)
[2021-01-01] MEDS ORDERED: HOME MED LIST COMPLETE! XX SCH (06:40)
[2021-01-01] MEDS ORDERED: LABETALOL 100MG/20ML VIAL IV STA (08:08)
[2021-01-01 08:29] LABS: HEMATOCRIT 42.3 % (36.0-47.0); HEMOGLOBIN 14.3 g/dl (12.0-15.5); MEAN CORPUSCULAR HEMOGLOBIN 30.8 pg (27.0-33.0); MEAN CORPUSCULAR HGB CONC 33.8 g/dl (32.0-36.5); PLATELET COUNT, AUTOMATED 270 10^3/uL (150-450); RED BLOOD COUNT 4.65 10^6/uL (4.00-5.40); WHITE BLOOD COUNT 9.7 10^3/uL (4.0-10.0)
--- NOTE | 2021-01-01 08:29 | ECGEPIP ---
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
[2021-01-01 08:52] LABS: BLOOD UREA NITROGEN 13 MG/DL (7-18); CALCIUM LEVEL 8.5 MG/DL (8.8-10.2); CARBON DIOXIDE LEVEL 27 MEQ/L (21-32); CHLORIDE LEVEL 112 MEQ/L (98-107); CREATININE FOR GFR 0.58 MG/DL (0.55-1.30); GLOMERULAR FILTRATION RATE > 60.0 (>32); GLUCOSE, FASTING 117 MG/DL (70-100); MAGNESIUM LEVEL 1.9 MG/DL (1.8-2.4); POTASSIUM SERUM 3.6 MEQ/L (3.5-5.1); SODIUM LEVEL 145 MEQ/L (136-145)
[2021-01-01] MEDS: DOCUSATE SODIUM 100MG CAPSULE PO SCH ×2 (09:56→21:10)
[2021-01-01 11:40] VITALS: BP_SYST 116; BP_SYST 139; BP_SYST 143; BP_DIAS 60; BP_DIAS 67; BP_DIAS 69
--- NOTE | 2021-01-01 15:29 | REPVR ---
PROCEDURE INFORMATION: Exam: MR Head Without Contrast Exam date and time: 01/01/2021 2:46 PM Age: 85 years old Clinical indication: Other: R/O stroke; Additional info: R/O acute CVA TECHNIQUE: Imaging protocol: MR of the head without contrast. COMPARISON: CT Head without contrast 12/31/2020 5:15 PM FINDINGS: Brain: There is moderate patchy increased T2 signal intensity within the bilateral cerebral periventricular white matter, consistent with chronic microvascular ischemic changes. There are few small focal areas of chronic ischemia in bilateral frontal, parietal and periatrial white matter. There is no abnormal diffusion weighted signal intensity to suggest an acute ischemic event. On gradient echo imaging, no susceptibility changes are seen to represent parenchymal calcification or degraded blood products. There is mild diffuse cerebral atrophy present, consistent with this patient's age. Stable small 9 mm extra-axial focal calcification in the right high parietal convexity. Cerebral ventricles: The ventricular system demonstrates mild diffuse compensatory enlargement. Bones/joints: Unremarkable. Paranasal sinuses: Normal as visualized. No acute sinusitis. Mastoid air cells: Mild bilateral mastoid effusions/mastoiditis. Orbital cavity: Unremarkable. Soft tissues: Unremarkable. IMPRESSION: 1. No acute infarction, masses or hemorrhage is seen. No acute intracranial abnormality is identified.There has been no adverse interval change since the previous study. 2. Diffuse age-related cerebral atrophy and moderate chronic microvascular white matter ischemic changes, without evidence of an acute intracranial abnormality. 3. Mild bilateral mastoid effusions/mastoiditis. 4. Stable small 9 mm extra-axial focal calcification in the right high parietal convexity. Electronically signed by: Guzman Bartholomew On 01/01/2021 15:29:11 PM
--- NOTE | 2021-01-01 19:24 | IPNPDOC ---
Date Seen The patient was seen on 01/01/21. Progress Note SUBJECTIVE: Patient seen examined at bedside in the ER. No acute events overnight. She is alert to person and to place however show signs of mild confusion likely related to her dementia. Patient denies any chest pain palpitations nausea vomiting shortness of breath. She states that her vertigo has resolved. OBJECTIVE PHYSICAL EXAMINATION: VITAL SIGNS: please see below General: NAD, comfortable HEENT: PERRLA, EOMI, sclerae clear Neck: supple, normal ROM, no JVD Respiratory: lungs CTAB, no wheeze, no rales, no crackles CVS: RRR, normal S1, S2, no murmurs Abdo: soft, no masses, no hepatosplenomegaly, BS+, no rebound tenderness Extremities: no edema, pulses 2+ MSK: no joint deformities, normal ROM Neuro: no focal neuro deficits, moving all 4 extremities, CN2-12 intact. Strength 5/5 in all 4 extremities. No nystagmus. Psych: calm, cooperative, AAO x 2 LABORATORY DATA, IMAGING STUDIES, MICROBIOLOGY: Please see below. MRI brain wo contrast 01/01/21: IMPRESSION: 1. No acute infarction, masses or hemorrhage is seen. No acute intracranial abnormality is identified.There has been no adverse interval change since the previous study. 2. Diffuse age-related cerebral atrophy and moderate chronic microvascular white matter ischemic changes, without evidence of an acute intracranial abnormality. 3. Mild bilateral mastoid effusions/mastoiditis. 4. Stable small 9 mm extra-axial focal calcification in the right high parietal convexity. DVT prophylaxis ordered?: Mechanical SCDs and Alli ASSESSMENT AND PLAN: Patient is an 85-year-old female with a history of dementia and hyperlipidemia presented to the ER with her daughter. She complained of vertigo and fatigue that persisted for approximately last 4 days. She was given meclizine in the ER which improved her vertigo. Patient found to have positive orthostats and likely a community-acquired pneumonia. PROBLEMS: 1. Vertigo - likely due to orthostasis. - improved with meclizine - give IVF, repeat orthostats positive - MRI brain wo contrast shows no ischemic CVA - request thigh-high compression stockings - will check AM cortisol - Fall precautions - PT/OT eval 2. Community acquired pneumonia - seen on CT abdomen imaging - mild leukocytosis 10.5, resolved - procal < 0.05. - Day 2 of ceftriaxone and doxycycline - check MRSA screen 3. HTN Urgency - start amlodipine - BP improved 4. HLD - continue statin, asa DVT prophylaxis - SCDs. TEDs. VS, I&O, 24H, Fishbone Vital Signs/I&O Vital Signs Date Time Temp Pulse Resp B/P (MAP) Pulse Ox O2 Delivery O2 Flow Rate FiO2 01/01/21 11:40 98.3 73 16 139/67 (91) 94 Room Air I&O- Last 24 Hours up to 6 AM 01/01/21 06:00 Intake Total 50 ml Balance 50 ml Laboratory Data 24H LABS Laboratory Tests 2 01/01/21 08:02: Nucleated Red Blood Cells % (auto) 0.0, Anion Gap 6L, Glomerular Filtration Rate > 60.0, Calcium Level 8.5L, Magnesium Level 1.9 CBC/BMP Laboratory Tests 01/01/21 08:02 Microbiology Microbiology 01/01/21 Respiratory Virus Panel (PCR) (LAURA) - Final, Complete 12/31/20 Blood Culture, Received Pending 12/31/20 Blood Culture, Received Pending SKYLA ARRIOLA MD Jan 01, 2021 19:24
[2021-01-01 22:00] VITALS: BP 152/78
[2021-01-01] MEDS ORDERED: cefTRIAXone SOD 1 GM in D5W MINI-BAG PLUS 50 ML IV SCH (23:00)
[2021-01-02 06:00] VITALS: BP_SYST 121; BP_SYST 154; BP_SYST 158; BP_DIAS 68; BP_DIAS 70; BP_DIAS 79
[2021-01-02] MEDS: DOXYCYCLINE HYCLATE 100 MG in D5W MINI-BAG PLUS 100 ML IV SCH (06:37)
[2021-01-02] MEDS ORDERED: amLODIPine 5 MG TAB PO SCH (09:00)
[2021-01-02 09:32] VITALS: BP 154/70
[2021-01-02] MEDS: DOCUSATE SODIUM 100MG CAPSULE PO SCH (09:32)
[2021-01-02 10:21] VITALS: O2SAT 92
[2021-01-02 10:31] LABS: BASO # 0.1 10^3/uL (0.0-0.2); BASO % 0.8 % (0.0-1.0); EOS # 0.3 10^3/uL (0.0-0.5); EOS % 3.2 % (0.0-3.0); HEMATOCRIT 41.5 % (36.0-47.0); HEMOGLOBIN 13.8 g/dl (12.0-15.5); LYMPH # 2.6 10^3/uL (1.5-5.0); LYMPH % 28.9 % (24.0-44.0); MEAN CORPUSCULAR HEMOGLOBIN 30.5 pg (27.0-33.0); MEAN CORPUSCULAR HGB CONC 33.3 g/dl (32.0-36.5); MEAN CORPUSCULAR VOLUME 91.6 fl (80.0-96.0); MONO # 0.8 10^3/uL (0.0-0.8); MONO % 8.7 % (2.0-8.0); NEUTROPHILS # 5.3 10^3/uL (1.5-8.5); NEUTROPHILS % 58.1 % (36.0-66.0); PLATELET COUNT, AUTOMATED 268 10^3/uL (150-450); RED BLOOD COUNT 4.53 10^6/uL (4.00-5.40); WHITE BLOOD COUNT 9.1 10^3/uL (4.0-10.0)
[2021-01-02 11:01] LABS: ALBUMIN 3.2 GM/DL (3.2-5.2); ALT/SGPT 33 U/L (12-78); BILIRUBIN,TOTAL 0.5 MG/DL (0.2-1.0); BLOOD UREA NITROGEN 13 MG/DL (7-18); CALCIUM LEVEL 8.4 MG/DL (8.8-10.2); CARBON DIOXIDE LEVEL 29 MEQ/L (21-32); CHLORIDE LEVEL 111 MEQ/L (98-107); CREATININE FOR GFR 0.71 MG/DL (0.55-1.30); GLOMERULAR FILTRATION RATE > 60.0 (>32); GLUCOSE, FASTING 119 MG/DL (70-100); MAGNESIUM LEVEL 1.8 MG/DL (1.8-2.4); POTASSIUM SERUM 3.4 MEQ/L (3.5-5.1); SODIUM LEVEL 144 MEQ/L (136-145); TOTAL PROTEIN 6.2 GM/DL (6.4-8.2)
[2021-01-02] MEDS ORDERED: AMLO1TAB24 PO (12:14)
[2021-01-02] MEDS ORDERED: DOXY100C3 PO (12:14)
[2021-01-02] MEDS ORDERED: ACET1TAB55 PO (12:14)
[2021-01-02] MEDS ORDERED: VENTAER INH (12:14)
[2021-01-02] MEDS ORDERED: MECL-86 PO (12:14)
[2021-01-02] MEDS ORDERED: AUGM875T28 PO (12:14)
[2021-01-04 10:55] LABS: CORTISOL AM 14.4 UG/DL (4.3-22.4)
== END 2021-01-02 13:30 | disposition home health service (06) | DRG 195 ==
LOC: M ED 14:16 → M ED INP 22:43 → ENRESERV 01-01 09:42 → M MSPAV 01-01 11:50 → OBSVTOIN 01-01 16:16 → UNDODISOB 01-02 13:30
PROVIDERS: ADMIT Internal Medicine; ATTEND Family Medicine
DX: J18.9 Pneumonia, unspecified organism (principal); R42 Dizziness and giddiness; F03.90 Unspecified dementia, unspecified severity, without behavioral disturbance, psychotic disturbance, mood disturbance, and anxiety; I16.0 Hypertensive urgency; E78.5 Hyperlipidemia, unspecified; R53.83 Other fatigue; Z66 Do not resuscitate; Z79.82 Long term (current) use of aspirin; Z79.899 Other long term (current) drug therapy

== ENCOUNTER 2021-02-03 13:07 | Emergency (ER) | payer MEDICARE, OTHER ==
[~2021-02-03] VITALS: Ht 157.5 cm; Wt 65.0 kg
[~2021-02-03 13:07] MED LIST changes: +ACET1TAB55 PO; +AMLO1TAB24 PO; +ASPI-264 PO; +ATOR1TAB19 PO; +AUGM875T28 PO; +DOXY100C3 PO; +MECL-86 PO; +VENTAER INH
[2021-02-03] MEDS ORDERED: LIDOCAINE 5% (LIDODERM) PATCH TD STA (13:47)
--- NOTE | 2021-02-03 14:04 | REP ---
INDICATION: CHEST PAIN COMPARISON: 12/31/2020 TECHNIQUE: Portable AP view of the chest FINDINGS: The mediastinum and cardiac silhouette are stable and within normal limits for portable technique. The lung irizarry are clear without acute consolidation, effusion, or pneumothorax. Skeletal structures are intact. IMPRESSION: No acute cardiopulmonary process appreciated. <Electronically signed by Kali Alvarez > 02/03/21 1400
--- OUTSIDE RECORDS SUMMARY | 2021-02-03 14:57 | CCD | Continuity of Care Document ---
Author Author Portia SHANE DO Organization Unknown Address [address] [facility] [address] [place] [address] Phone [phone] Care Team Providers Care Gear And Spline Grinder Name Role Phone Waqas Shane JR, MD AUTM Unavailable [facility] A - paddle dyeing machine operator AUTM [facility] AUTM [phone] Ramin Gaytan MD AUTM [phone] Problems Active Problems Provider Date Type 2 diabetes mellitus Waqas Shane MD Onset: 2019 Social History Type Date Description Comments Sex Unknown ETOH Use Denies alcohol use Tobacco Use Start: Unknown Patient has never smoked smoked for 15yrs Allergies and adverse reactions Description No Known Drug Allergies Medications Active Medications SIG Qnty Indications Ordering Provide r Date Meclizine HCL 25mg Tablets one tab by mouth every 8 hours as needed for dizziness 60tabs Diana Shane DO 01/06/2021 Atorvastatin Calcium 10mg Tablets 1 by mouth every day 90tabs Waqas Shane MD 05/15/[address] 1 by mouth every day Waqas Shane MD 05/15/2019 Doxycycline Hyclate 100mg Capsules one tab twice a day for 5 days Unknown 0 Amoxicillin/Clavulanate Potassium 875-125mg Tablets 1 by mouth twice a day Unknown Acetaminophen 325mg Tablets 2 tabs by mouth as needed every 4 hours for pain or fever mdd=3 grams Unknown Ventolin HFA 108(90Base) mcg/Act A erosol 2 puffs four times a day as needed Unknown Amlodipine Besylate 5mg Tablets 1 by mouth every day Unknown Medications Administered in Office Medication SIG Qnty Indications Ordering Provider Date Covid-19 vaccine, Unspecified Inj ection Unknown 04/23/2020 Covid-19 vaccine, Unspecified Inj ection Unknown 04/02/2020 Immunizations CPT Code Status Date Vaccine Lot # U-Flu Given 12/28/2017 Influenza,Unspecified U-Flu Given 12/18/2016 Influenza,Unspecified Vital Signs Date Vital Result Comment 01/06/2021 9:39am BP Systolic 126 mmHg BP Diastolic 68 mmHg Heart Rate 96 /min Height 62 inches 5'2" Weight 153.00 lb O2 % BldC Oximetry 97 % BMI (Body Mass Index) 28.0 kg/m2 09/11/2020 10:15am BP Systolic 124 mmHg BP Diastolic 68 mmHg Heart Rate 80 /min Height 62 inches 5'2" Weight 153.50 lb O2 % BldC Oximetry 92 % RM Air BMI (Body Mass Index) 28.1 kg/m2 Results Test Acquired Date Facility Test Result H/L Range Note Ua W/ Reflex To Culture 12/31/[address] [id number] [phone] Appearance, Urine RFX HAZY Normal Clear Color, Urine RFX STRAW Normal Yellow PH,Urine RFX 6.0 units Normal 5.0-9.0 Specific [place] Ur Auto RFX 1.005 Normal 1.002-1.035 Protein, Urine Auto RFX NEGATIVE mg/dL Normal Negative Glucose, Urine (Ua) Auto RFX NEGATIVE mg/dL Normal Negative Ketone, Urine Auto RFX NEGATIVE mg/dL Normal Negative Urobilinogen, Urine Auto RFX 0.2 mg/dL Normal 0.0-2.0 Bilirubin, Urine Auto RFX NEGATIVE Normal Negative Nitrite, Urine Auto RFX NEGATIVE Normal Negative Leukocyte Esterase Ur Auto RFX NEGATIVE Normal Negative Blood, Urine Blood RFX NEGATIVE Normal Negative WBC, Urine Auto RFX 2 /HPF Normal 0-3 RBC, Urine Auto RFX 0 /HPF Normal 0-3 Bacteria, Urine Auto RFX 1+ High Negative Squam Epithelial Cell Ur Aurfx 2 /HPF Normal 0-6 Mucus, Urine RFX SMALL Normal Negative Hyaline Cast, Urine Auto RFX 0 /LPF Normal 0-1 CBC With Differential 12/31/2020 [facility] [address] [place] [address] [phone] White Blood Count 11.0 10 High 4.0-10.0 Red Blood Count 5.01 10 Normal 4.00-5.40 Hemoglobin 15.2 g/dL Normal 12.0-15.5 Hematocrit 46.4 % Normal 36.0-47.0 Mean Corpuscular Volume 92.6 fl Normal 80.0-96.0 Mean Corpuscular Hemoglobin 30.3 pg Normal 27.0-33.0 Mean Corpuscular HGB Conc 32.8 g/dL Normal 32.0-36.5 Red Cell Distribution Width 12.8 % Normal 11.5-14.5 Platelet Count, Automated 303 10 Normal 150-450 Neutrophils % 70.5 % High 36.0-66.0 Lymph % 20.9 % Low 24.0-44.0 [place] % 6.4 % Normal 2.0-8.0 Eos % 1.2 % Normal 0.0-3.0 Baso % 0.5 % Normal 0.0-1.0 Immature Granulocyte % 0.5 % Normal 0-3.0 Nucleated Red Blood Cell % 0.0 % Normal 0-0 Neutrophils # 7.8 10 Normal 1.5-8.5 Lymph # 2.3 10 Normal 1.5-5.0 [place] # 0.7 10 Normal 0.0-0.8 Eos # 0.1 10 Normal 0.0-0.5 Baso # 0.1 10 Normal 0.0-0.2 Cardiac Marker Panel 12/31/2020 [facility] enter [address] [place] [address] [phone] CPK Creatine Phosphokinase 108 U/L Normal 26-19 2 CK-MB Value Mass 1.7 NG/ML Normal <3.6 MB/CK Relative Index 1.57 Normal < Or =4 1 Troponin I < 0.02 NG/ML Normal < 0.10 2 Liver Profile 12/31/2020 [facility] nter [address] [place] [address] [phone] Ast/Sgot 22 U/L Normal 7-37 Alt/SGPT 41 U/L Normal 12-78 Alkaline Phosphatase 71 U/L Normal 45-117 Bilirubin,Total 0.5 mg/dL Normal 0.2-1.0 Bilirubin,Direct 0.1 mg/dL Normal 0.0-0.2 Total Protein 7.4 GM/DL Normal 6.4-8.2 Albumin 3.8 GM/DL Normal 3.2-5.2 Albumin/Globulin Ratio 1.1 Low 1.2-2.2 Basic Metabolic Profile 12/31/[address] [id number] [phone] Glucose, Fasting 100 mg/dL Normal 70-100 Blood Urea Nitrogen 17 mg/dL Normal 7-18 Creatinine For GFR 0.68 mg/dL Normal 0.55-1.30 Glomerular Filtration Rate > 60.0 Normal >32 3 Sodium Level 144 mEq/L Normal 136-145 Potassium Serum 3.7 mEq/L Normal 3.5-5.1 Chloride Level 107 mEq/L Normal 98-107 Carbon Dioxide Level 30 mEq/L Normal 21-32 Anion Gap 7 mEq/L Low 8-16 Calcium Level 8.9 mg/dL Normal 8.8-10.2 Laboratory test finding 12/31/[address] [address] [phone] NT-Pro BNP 54 pg/mL Normal <450 Lipase 132 U/L Normal 73-393 Thyroid Stimulating Hormone 3.240 uIU/ML Normal 0.358-3.740 Complete Blood Count 09/11/2020 [facility] Career And Transition Teacher: [place] [address] [phone] WBC 8.1 x10*3/UL 4.1 - 10.9 RBC [...] 5.7 x10*3/UL 2.0 - 7.8 A1c 09/11/2020 [facility] , Career And Transition Teacher: [place] [address] [phone] Hba1c 6.4 % High <5.7 4 Est Avg Glucose 137 mg/dL High 60 - 110 Comprehensive Chem Profile 09/11/2020 [facility], Career And Transition Teacher: [place] [address] [phone] Glucose 138 mg/dL High 74 - 99 5 BUN 19 mg/dL High 7 - 18 [...] mL/min >60 GFR >= 60 mL/min >60 6 1 DIAGNOSIS CRITERIA MMB ng/ml Relative Index (RI) NON-AMI < or = 5 N/A HATCH [place]ONE > 5 < or = 4 AMI > 5 > 4 2 Troponin I Reference Interva l for [email or web address] LOCI: 99th Percentile= 0.00-0.045 ng/ml Risk Stratification: <= 0.10 ng/ml Decreased Risk for Adverse Clinical Events. 0.10-1.50 ng/ml Increased Risk for Adv erse Clinical Events. Evaluation of additional criterion and/or repeat testing in 2-6 hours is suggested to rule out myocardial damage. >= 1.50 ng/ml Indicative of Myocardial Injury. 3 Units are mL/min/1.73 m2 Chronic Kidney Disease Staging per NKF: Stage I & II GFR >=60 Normal to Mildly Decreased Stage III GFR 30-59 Moderately Decreased Stage IV GFR 15-29 Severely Decreased Stage V GFR <15 Very Little GFR Left ESRD GFR <15 on GENERAL CAR SUPERVISOR YARD 4 Lab Result Notes: Pre-Diabetes 5.7 - 6.4 % Diabetes = or > 6.5% 5 100-125 mg/dL PRE-DIABET ES/FASTING >126 mg/dL DIABETES/FASTING 6 CHRONIC KIDNEY DISEASE STAGI NG PER NKF STAGE I & II GFR >= 60 NORMAL TO MILDLY DECREASED STAGE III GFR 30-59 MODERATELY DECREASED STAGE IV GFR 15-29 SEVERELY DECREASED STAGE V GFR <15 VERY LITTLE GFR LEFT ESRD GFR <15 ON GENERAL CAR SUPERVISOR YARD Procedures Date Code Description Status 09/11/2020 86123 Office/Outpatient Established Mo d MDM 30-39 Min Completed 03/26/2020 [id number] Mammogram Completed 03/25/2019 [id number] Mammogram Completed 01/30/2017 [id number] Bone Mineral Density Test Comple shelbie 11/11/2008 [id number] Colonoscopy Completed Medical Devices Description No Information Available Encounters Type Date Location Provider Dx Diagnosis Office Visit 09/11/2020 10:20a [facility] Waqas Shane MD G30.1 Alzheimer's disease with late onset F02.80 Dementia in oth diseases cla ssd elswhr w/o behavrl disturb E11.9 Type 2 diabetes mellitus wit hout complications I10 Essential (primary) hyperten josé miguel E78.00 Pure hypercholesterolemia, u nspecified M81.0 Age-related osteoporosis w/o current pathological fracture Assessments Date Code Description Provider 09/11/2020 G30.1 Alzheimer's disease with late on set Waqas Shane MD 09/11/2020 F02.80 Dementia in other di seases classified elsewhere without behavioral disturbance Waqas Shane MD 09/11/2020 E11.9 Type 2 diabetes mellitus without complications Waqas Shane MD 09/11/2020 I10 Essential (primary) hypertension Waqas Shane MD 09/11/2020 E78.00 Pure hypercholesterolemia, unspe cified Waqas Shane MD 09/11/2020 M81.0 Age-related osteoporosis without current pathological fracture Waqas Shane MD Plan of Treatment Future Appointment(s):* 01/13/2021 9:40 am - Too Shane DO at [facility] * 03/01/2021 9:40 am - Waqas Shane MD at [facility] 01/06/2021 - Too Shane DO* All * New Medication:* Meclizine HCL 25 mg - one tab by mouth every 8 hours as needed for dizziness Functional Status Description No Information Available Mental Status Description No Information Available Referrals Description No Information Available
--- OUTSIDE RECORDS SUMMARY | 2021-02-03 14:57 | CCD | Continuity of Care Document ---
Author Author Portia Batres MD Organization Unknown Address [address] [facility] [address] [place] [address] Phone [phone] Care Team Providers Care Order Fulfillment Specialist Name Role Phone Waqas Batres JR, MD AUTM Unavailable Women's Wellness A - program aide AUTM [phone] [facility] AUTM [phone] Ramin Gaytan MD AUTM [phone] Problems Active Problems Provider Date Type 2 [...] Note Ua W/ Reflex To Culture 12/31/[address] [address] [phone] Appearance, Urine RFX HAZY Normal Clear Color, Urine RFX STRAW Normal Yellow PH,Urine RFX 6.0 units Normal 5.0-9.0 Specific [place] Ur Auto RFX 1.005 Normal 1.002-1.035 Protein, [...] /LPF Normal 0-1 CBC With Differential 12/31/[address] [address] [phone] White Blood Count 11.0 10 High 4.0-10.0 [...] 36.0-66.0 Lymph % 20.9 % Low 24.0-44.0 [place] % 6.4 % Normal 2.0-8.0 Eos % 1.2 % Normal 0.0-3.0 Baso % 0.5 % Normal 0.0-1.0 Immature Granulocyte % 0.5 % Normal 0-3.0 Nucleated Red Blood Cell % 0.0 % Normal 0-0 Neutrophils # 7.8 10 Normal 1.5-8.5 Lymph # 2.3 10 Normal 1.5-5.0 [place] # 0.7 10 Normal 0.0-0.8 Eos # 0.1 10 Normal 0.0-0.5 Baso # 0.1 10 Normal 0.0-0.2 Cardiac Marker Panel 12/31/2020 [facility] enter [address] [place] [address] [phone] CPK Creatine Phosphokinase 108 U/L Normal 26-19 2 CK-MB Value Mass 1.7 NG/ML Normal <3.6 MB/CK Relative Index 1.57 Normal < Or =4 1 Troponin I < 0.02 NG/ML Normal < 0.10 2 Liver Profile 12/31/2020 [facility] nter [address] [place] [address] [phone] Ast/Sgot 22 U/L Normal 7-37 Alt/SGPT 41 U/L Normal 12-78 Alkaline Phosphatase 71 U/L Normal 45-117 Bilirubin,Total 0.5 mg/dL Normal 0.2-1.0 Bilirubin,Direct 0.1 mg/dL Normal 0.0-0.2 Total Protein 7.4 GM/DL Normal 6.4-8.2 Albumin 3.8 GM/DL Normal 3.2-5.2 Albumin/Globulin Ratio 1.1 Low 1.2-2.2 Basic Metabolic Profile 12/31/2020 [facility] [address] [place] [address] [phone] Glucose, Fasting 100 mg/dL Normal 70-100 Blood [...] mg/dL Normal 8.8-10.2 Laboratory test finding 12/31/2020 [facility] [address] [place] [address] [phone] NT-Pro BNP 54 pg/mL Normal <450 Lipase 132 U/L Normal 73-393 Thyroid Stimulating Hormone 3.240 uIU/ML Normal 0.358-3.740 Complete Blood Count 09/11/2020 [facility] Die Repair Machinist: [place] [address] [phone] WBC 8.1 x10*3/UL 4.1 - 10.9 RBC [...] 5.7 x10*3/UL 2.0 - 7.8 A1c 09/11/2020 [facility] Die Repair Machinist: [place] [address] [phone] Hba1c 6.4 % High <5.7 4 Est Avg Glucose 137 mg/dL High 60 - 110 Comprehensive Chem Profile 09/11/2020 [facility] Die Repair Machinist: [place] [address] [phone] Glucose 138 mg/dL High 74 - 99 [...] 2 Troponin I Reference Interva l for [employer] LOCI: 99th Percentile= 0.00-0.045 ng/ml Risk Stratification: [...] Little GFR Left ESRD GFR <15 on MOLDING ROOM SUPERVISOR 4 Lab Result Notes: Pre-Diabetes 5.7 - [...] LITTLE GFR LEFT ESRD GFR <15 ON MOLDING ROOM SUPERVISOR Procedures Date Code Description Status 09/11/2020 55397 Office/Outpatient Established Mo d MDM 30-39 Min Completed 03/26/2020 [id number] Mammogram Completed 03/25/2019 [id number] Mammogram Completed 01/30/2017 [id number] Bone Mineral Density Test Comple shelbie 11/11/2008 [id number] Colonoscopy Completed Medical Devices Description No Information Available Encounters Type Date Location Provider Dx Diagnosis Office Visit 09/11/2020 10:20a [facility] Waqas Batres MD G30.1 Alzheimer's [...] without current pathological fracture Waqas Batres MD Plan of Treatment Future Appointment(s):* 03/01/2021 9:40 am - Waqas Batres MD at [facility] 09/11/2020 - Waqas Batres MD* G30.1 [...]
--- OUTSIDE RECORDS SUMMARY | 2021-02-03 14:57 | CCD | Continuity of Care Document ---
Author Author Portia Batres MD Organization Unknown Address [address] [facility] [address] [place] [address] Phone [phone] Care Team Providers Care Belting And Webbing Inspector Name Role Phone Waqas Batres JR, MD AUTM Unavailable Women[facility] A - geophysical observer AUTM [facility] AUTM [phone] Ramin Gaytan MD AUTM [phone] Problems Active Problems Provider Date Type 2 [...] Note Ua W/ Reflex To Culture 12/31/[address] [address] [phone] Appearance, Urine RFX HAZY Normal Clear Color, Urine RFX STRAW Normal Yellow PH,Urine RFX 6.0 units Normal 5.0-9.0 Specific [place] Ur Auto RFX 1.005 Normal 1.002-1.035 Protein, [...] /LPF Normal 0-1 CBC With Differential 12/31/[address] [address] [phone] White Blood Count 11.0 10 High 4.0-10.0 [...] 36.0-66.0 Lymph % 20.9 % Low 24.0-44.0 [place] % 6.4 % Normal 2.0-8.0 Eos % 1.2 % Normal 0.0-3.0 Baso % 0.5 % Normal 0.0-1.0 Immature Granulocyte % 0.5 % Normal 0-3.0 Nucleated Red Blood Cell % 0.0 % Normal 0-0 Neutrophils # 7.8 10 Normal 1.5-8.5 Lymph # 2.3 10 Normal 1.5-5.0 [place] # 0.7 10 Normal 0.0-0.8 Eos # 0.1 10 Normal 0.0-0.5 Baso # 0.1 10 Normal 0.0-0.2 Cardiac Marker Panel 12/31/2020 [facility] enter [address] [place] [address] [phone] CPK Creatine Phosphokinase 108 U/L Normal 26-19 2 CK-MB Value Mass 1.7 NG/ML Normal <3.6 MB/CK Relative Index 1.57 Normal < Or =4 1 Troponin I < 0.02 NG/ML Normal < 0.10 2 Liver Profile 12/31/2020 [facility] nter [address] [place] [address] [phone] Ast/Sgot 22 U/L Normal 7-37 Alt/SGPT 41 U/L Normal 12-78 Alkaline Phosphatase 71 U/L Normal 45-117 Bilirubin,Total 0.5 mg/dL Normal 0.2-1.0 Bilirubin,Direct 0.1 mg/dL Normal 0.0-0.2 Total Protein 7.4 GM/DL Normal 6.4-8.2 Albumin 3.8 GM/DL Normal 3.2-5.2 Albumin/Globulin Ratio 1.1 Low 1.2-2.2 Basic Metabolic Profile 12/31/2020 [facility] [address] [place] [address] [phone] Glucose, Fasting 100 mg/dL Normal 70-100 Blood [...] mg/dL Normal 8.8-10.2 Laboratory test finding 12/31/2020 [facility] [address] [place] [address] [phone] NT-Pro BNP 54 pg/mL Normal <450 Lipase 132 U/L Normal 73-393 Thyroid Stimulating Hormone 3.240 uIU/ML Normal 0.358-3.740 Complete Blood Count 09/11/2020 [facility] Access Control Specialist: [place] [address] [phone] WBC 8.1 x10*3/UL 4.1 - 10.9 RBC [...] 5.7 x10*3/UL 2.0 - 7.8 A1c 09/11/2020 [facility] Access Control Specialist: Dr [place] [address] [phone] Hba1c 6.4 % High <5.7 4 Est Avg Glucose 137 mg/dL High 60 - 110 Comprehensive Chem Profile 09/11/2020 [facility] Access Control Specialist: [place] [address] [phone] Glucose 138 mg/dL High 74 - 99 [...] 2 Troponin I Reference Interva l for [employer] LOCI: 99th Percentile= 0.00-0.045 ng/ml Risk Stratification: [...] Little GFR Left ESRD GFR <15 on COMMUNITY DEVELOPMENT OFFICER 4 Lab Result Notes: Pre-Diabetes 5.7 - [...] LITTLE GFR LEFT ESRD GFR <15 ON COMMUNITY DEVELOPMENT OFFICER Procedures Date Code Description Status 09/11/2020 64166 Office/Outpatient Established Mo d MDM 30-39 Min Completed 03/26/2020 [id number] Mammogram Completed 03/25/2019 [id number] Mammogram Completed 01/30/2017 [id number] Bone Mineral Density Test Comple shelbie 11/11/2008 [id number] Colonoscopy Completed Medical Devices Description No Information Available Encounters Type Date Location Provider Dx Diagnosis Office Visit 09/11/2020 10:20a [facility] Waqas Batres MD G30.1 Alzheimer's [...] 9:40 am - Waqas Batres MD at [facility] 09/11/2020 - Waqas Batres MD* [...]
--- OUTSIDE RECORDS SUMMARY | 2021-02-03 14:57 | CCD | Continuity of Care Document ---
Author Author Portia SHANE DO Organization Unknown Address [address] [facility] [address] [place] [address] Phone [phone] Care Team Providers Care Fish Bait Picker Name Role Phone Waqas Shane JR, MD AUTM Unavailable [facility] - tipple repairer [facility] [phone] Ramin Gaytan MD AUTM [phone] [facility] AUTM [phone] Problems Active Problems Provider Date Type 2 diabetes mellitus Waqas Shane MD Onset: 2019 Social History Type Date Description Comments Sex Unknown ETOH Use Denies alcohol use Tobacco Use Start: Unknown Patient has never smoked smoked for 15yrs Allergies and adverse reactions Description No Known Drug Allergies Medications Active Medications SIG Qnty Indications Ordering Provide r Date Pedialyte Solution ta ke as needed 3000units Too Shane DO 01/13/2021 Emergen-C Immune Plus Packet every day sporadic Too Shane DO 01/14/[address] 1 by mouth every day Too Shane DO 01/14/20 21 Atorvastatin Calcium 10mg Tablets 1 by mouth every day 90tabs Waqas Sahne MD 05/15/2019 [address] 1 by mouth every day Waqas Shane MD 05/15/2019 Acetaminophen 325mg Tablets 2 tabs by mouth as needed every 4 hours for pain or fever mdd=3 grams Unknown History Medications Meclizine HCL 25mg Tablets one tab by mouth every 8 hours as needed for dizziness 60tabs Diana Shane, DO 01/06/2021 - 01/13/2021 Medications Administered in Office Medication SIG Qnty Indications Ordering Provider Date Covid-19 vaccine, Unspecified Inj ection Unknown 04/23/2020 Covid-19 vaccine, Unspecified Inj ection Unknown 04/02/2020 Immunizations CPT Code Status Date Vaccine Lot # U-Flu Given 12/28/2017 Influenza,Unspecified U-Flu Given 12/18/2016 Influenza,Unspecified Vital Signs Date Vital Result Comment 01/13/2021 9:46am BP Systolic 122 mmHg BP Diastolic 74 mmHg Heart Rate 90 /min Height 62 inches 5'2" Weight 153.00 lb O2 % BldC Oximetry 99 % BMI (Body Mass Index) 28.0 kg/m2 01/06/2021 9:39am BP Systolic 126 mmHg BP Diastolic 68 mmHg BP Systolic Standing 90 mmHg BP Diastolic Standing 58 mmHg Heart Rate 96 /min Height 62 inches 5'2" Weight 153.00 lb O2 % BldC Oximetry 97 % BMI (Body Mass Index) 28.0 kg/m2 Results Test Acquired Date Facility Test Result H/L Range Note Ua W/ Reflex To Culture 12/31/2020 [place] [id number] [phone] Appearance, Urine RFX HAZY Normal Clear Color, Urine RFX STRAW Normal Yellow PH,Urine RFX 6.0 units Normal 5.0-9.0 Specific Eloy Ur Auto RFX 1.005 Normal 1.002-1.035 Protein, [...] /LPF Normal 0-1 CBC With Differential 12/31/2020 [facility] [address] [place] [address] [phone] White Blood Count 11.0 10 High 4.0-10.0 [...] 36.0-66.0 Lymph % 20.9 % Low 24.0-44.0 Pettis % 6.4 % Normal 2.0-8.0 Eos % 1.2 % Normal 0.0-3.0 Baso % 0.5 % Normal 0.0-1.0 Immature Granulocyte % 0.5 % Normal 0-3.0 Nucleated Red Blood Cell % 0.0 % Normal 0-0 Neutrophils # 7.8 10 Normal 1.5-8.5 Lymph # 2.3 10 Normal 1.5-5.0 Pettis # 0.7 10 Normal 0.0-0.8 Eos # 0.1 10 Normal 0.0-0.5 Baso # 0.1 10 Normal 0.0-0.2 Cardiac Marker Panel 12/31/2020 [facility] enter [address] [place] [address] [phone] CPK Creatine Phosphokinase 108 U/L Normal 26-19 2 CK-MB Value Mass 1.7 NG/ML Normal <3.6 MB/CK Relative Index 1.57 Normal < Or =4 1 Troponin I < 0.02 NG/ML Normal < 0.10 2 Liver Profile 12/31/2020 [facility] nter [address] [place] [address] [phone] Ast/Sgot 22 U/L Normal 7-37 Alt/SGPT 41 U/L Normal 12-78 Alkaline Phosphatase 71 U/L Normal 45-117 Bilirubin,Total 0.5 mg/dL Normal 0.2-1.0 Bilirubin,Direct 0.1 mg/dL Normal 0.0-0.2 Total Protein 7.4 GM/DL Normal 6.4-8.2 Albumin 3.8 GM/DL Normal 3.2-5.2 Albumin/Globulin Ratio 1.1 Low 1.2-2.2 Basic Metabolic Profile 12/31/[address] [id number] [phone] Glucose, Fasting 100 mg/dL Normal 70-100 Blood [...] mg/dL Normal 8.8-10.2 Laboratory test finding 12/31/[address] [id number] [phone] NT-Pro BNP 54 pg/mL Normal <450 Lipase 132 U/L Normal 73-393 Thyroid Stimulating Hormone 3.240 uIU/ML Normal 0.358-3.740 Complete Blood Count 09/11/2020 [facility] Clerk Typist: Dr Waqas Shane [place], [place] [id number] [phone] WBC 8.1 x10*3/UL 4.1 - 10.9 RBC [...] 5.7 x10*3/UL 2.0 - 7.8 A1c 09/11/2020 [facility] , Clerk Typist: Dr Waqas Shane [place], [place] [id number] [phone] Hba1c 6.4 % High <5.7 4 Est Avg Glucose 137 mg/dL High 60 - 110 Comprehensive Chem Profile 09/11/2020 [facility], Clerk Typist: Dr [place] [address] [phone] Glucose 138 mg/dL High 74 - 99 [...] 2 Troponin I Reference Interva l for [place] LOCI: 99th Percentile= 0.00-0.045 ng/ml Risk Stratification: [...] Little GFR Left ESRD GFR <15 on SUPERVISOR DECORATING 4 Lab Result Notes: Pre-Diabetes 5.7 - [...] LITTLE GFR LEFT ESRD GFR <15 ON SUPERVISOR DECORATING Procedures Date Code Description Status 09/11/2020 35679 Office/Outpatient Established Mo d MDM 30-39 Min Completed 03/26/2020 [id number] Mammogram Completed 03/25/2019 [id number] Mammogram Completed 01/30/2017 [id number] Bone Mineral Density Test Comple shelbie 11/11/2008 [id number] Colonoscopy Completed Medical Devices Description No Information Available Encounters Type Date Location Provider Dx Diagnosis Office Visit 09/11/2020 10:20a [facility] Shane MD G30.1 Alzheimer's disease with late onset F02.80 Dementia in oth diseases cla ssd elswhr w/o behavrl disturb E11.9 Type 2 diabetes mellitus wit hout complications I10 Essential (primary) hyperten josé miguel E78.00 Pure hypercholesterolemia, u nspecified M81.0 Age-related osteoporosis w/o current pathological fracture Assessments Date Code Description Provider 01/13/2021 I95.1 Orthostatic hypotension Asya Shane, DO 01/13/2021 I10 Essential (primary) hypertension Too Shane, DO 01/13/2021 J18.9 Pneumonia, unspecified organism Too Shane, DO 01/13/2021 G30.1 Alzheimer's disease with late on set Too Shane, DO 01/13/2021 F02.80 Dementia in other di seases classified elsewhere without behavioral disturbance Too Shane, DO 01/13/2021 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 01/13/2021 - Too Shane, DO* I95.1 Orthostatic hypotension* Comments:* Symptoms have resolved with hydration and discontinuation of anti-HTN. She is otherwise much improved at this time and appears to be roughly back to baseline. She has a lot of support with family and home health coming in. They are taking her back to her apartment at [facility] today. * I10 Essential (primary) hypertension* Comments:* BP has been well controlled at home and today in office. Will continue to monitor off of anti-HTN medication, as given her age and fall risk, I feel that BP is at goal at this time. * J18.9 Pneumonia, unspecified organism* Comments:* She has no respiratory symptoms. She has completed antibiotics. 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 She is back to baseline and without behavioral issues. 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 * All * New Medication:* Pedialyte - take as needed * Emergen-C Immune Plus - every day sporadic * Probiotic - 1 by mouth every day Functional Status Description No Information Available Mental Status Description No Information Available Referrals Description No Information Available
--- OUTSIDE RECORDS SUMMARY | 2021-02-03 14:58 | CCD ---
Author Author [facility] Organization [facility] Address Unknown Phone Unavailable Care Team Providers Care Wash Worker Name Role Phone Kesha EMERSON JR PA-C Unavailable Unavailable Kesha EMERSON JR PA-C Unavailable Unavailable PICKJAGUAR WILSON J JAIR PA-C Unavailable Unavailable PICKJAGUAR JR J JAIR PA-C Unavailable Unavailable PICKERAL , J JAIR PA-C Unavailable Unavailable PICKJAGUAR WILSON J JAIR PA-C Unavailable Unavailable PICKERAL , J JAIR PA-C Unavailable Unavailable PICKERAL JR [...] PICKERAL JR, J JAIR PA-C Unavailable Unavailable KI WILSON J JAIR PA-C Unavailable Unavailable PICKERAL JR J JAIR PA-C Unavailable Unavailable PICKJAGUAR WILSON J JAIR PA-C Unavailable Unavailable PICKERAL JR J JAIR PA-C Unavailable Unavailable PICKJAGUAR JR, J JAIR PA-C Unavailable Unavailable PICKERAL JR, J JAIR PA-C Unavailable Unavailable PICKERAL JR, J JAIR PA-C Unavailable Unavailable PICKERAL JR, J JAIR PA-C Unavailable Unavailable PICKERAL JR, J JAIR PA-C Unavailable Unavailable PICKERAL JR, J JAIR PA-C Unavailable Unavailable SebastianBerkley MD Unavailable Unavailable SebastianBerkley MD Unavailable Unavailable SebastianBerkley MD Unavailable Unavailable GiselBerkley MD Unavailable Unavailable GiselBerkley MD Unavailable Unavailable SebastianBerkley MD Unavailable Unavailable SebastianBerkley MD Unavailable Unavailable SebastianBerkley MD Unavailable Unavailable GiselBerkley MD Unavailable Unavailable SebastianBerkley MD Unavailable Unavailable SebastianBerkley MD Unavailable Unavailable GiselBerkley MD Unavailable Unavailable SebastianBerkley MD Unavailable Unavailable GiselBerkley MD Unavailable Unavailable GiselBerkley MD Unavailable Unavailable SebastianBerkley MD Unavailable Unavailable SebastianBerkley MD Unavailable Unavailable SebastianBerkley MD Unavailable Unavailable GiselBerkley MD Unavailable Unavailable GiselBerkley MD Unavailable Unavailable SebastianBerkley MD Unavailable Unavailable SebastianBerkley MD Unavailable Unavailable GiselBerkley MD Unavailable Unavailable SebastianBerkley MD Unavailable Unavailable GiselBerkley MD Unavailable Unavailable SebastianBerkley MD Unavailable Unavailable SebastianBerkley MD Unavailable Unavailable SebastianBerkley white MD Unavailable Unavailable SebastianBerkley white MD Unavailable Unavailable SebastianBerkley white MD Unavailable Unavailable GiselBerkley white MD Unavailable Unavailable GiselBerkley white MD Unavailable Unavailable SebastianBerkley white MD Unavailable Unavailable SebastianBerkley MD Unavailable Unavailable SebastianBerkley white MD Unavailable Unavailable GiselBerkley white MD Unavailable Unavailable SebastianBerkley white MD Unavailable Unavailable GiselBerkley MD Unavailable Unavailable SebastianBerkley MD Unavailable Unavailable GiselBerkley MD Unavailable Unavailable GiselBerkley MD Unavailable Unavailable GiselBerkley MD Unavailable Unavailable SebastianBerkley MD Unavailable Unavailable SebastianBerkley MD Unavailable Unavailable SebastianBerkley MD Unavailable Unavailable SebastianBerkley MD Unavailable Unavailable GiselBerkley MD Unavailable Unavailable GiselBerkley MD Unavailable Unavailable SebastianBerkley MD Unavailable Unavailable Gisel, F Alan MD Unavailable Unavailable Sebastian, F Alan MD Unavailable Unavailable Gisel, F Alan MD Unavailable Unavailable Gisel, F Alan MD Unavailable Unavailable Gisel, F Alan MD Unavailable Unavailable Gisel, F Alan MD Unavailable Unavailable Sebastian, F Alan MD Unavailable Unavailable Sebastian, F Alan MD Unavailable Unavailable Sebastian, F Alan MD Unavailable Unavailable Sebastian, F Alan MD Unavailable Unavailable Gisel, F Alan MD Unavailable Unavailable Sebastian, F Alan MD Unavailable Unavailable Gisel, F Alan MD Unavailable Unavailable Sebastian, F Alan MD Unavailable Unavailable Gisel, F Alan MD Unavailable Unavailable Gisel, F Alan MD Unavailable Unavailable Sebastian, F Alan MD Unavailable Unavailable Gisel, F Alan MD Unavailable Unavailable Gisel, F Alan MD Unavailable Unavailable Sebastian, F Alan MD Unavailable Unavailable Gisel, F Alan MD Unavailable Unavailable Gisel, F Alan MD Unavailable Unavailable Gisel, F Alan MD Unavailable Unavailable Gisel, F Alan MD Unavailable Unavailable Sebastian, F Alan MD Unavailable Unavailable Gisel, F Alan MD Unavailable Unavailable Sebastian, F Alan MD Unavailable Unavailable Gisel, F Alan MD Unavailable Unavailable Gisel, F Alan MD Unavailable Unavailable Gisel, F Alan MD Unavailable Unavailable Gisel, F Alan MD Unavailable Unavailable Sebastian, F Alan MD Unavailable Unavailable Sebastian, F Alan MD Unavailable Unavailable Gisel, F Laan MD Unavailable Unavailable Sebastian, F Alan MD Unavailable Unavailable Gisel, F Alan MD Unavailable Unavailable Sebastian, F Alan MD Unavailable Unavailable Re-disclosure Warning The [...] is protected by Article 27-F of the [facility] Public Health law. If you continue you may have access to information: Regarding HIV / AIDS; Provided by facilities licensed or operated by the [facility] Office of Mental Health; or Provided by the [facility] Office for People With Developmental Disabilities. If such information is present, then the following [facility] mandated warning applies: This information [...] Description Data Source(s) Unknown Unknown Problem [facility] (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 [id number] 06/02/2020 12:00:00 AM EDT eCW1 ([facility]) Unknown [address] [facility] [id number] 05/14/2020 12:00:00 AM EST eCW1 ([facility]) Outpatient [address] [facility] [id number] 04/24/2020 12:00:00 AM EST eCW1 ([facility]) Outpatient Attender: JAIR Oakley 0 04/16/2020 09:00:00 AM EST [facility] ([facility] ) Outpatient [address] [facility] [id number] 04/14/2020 12:00:00 AM EST eCW1 ([facility]) Outpatient Attender: Waqas Oakley 1 05/05/2019 09:20:00 AM EST [facility] ([facility] ) Immunizations Vaccine Date Status Description Data Source(s) COVID-19 VACCINE Pfizer 01/20/2021 12:00:00 AM EDT completed [facility] Vaccine Series Complete: YESThis Data wa s Submitted to [facility] Via [employer]. COVID-19 VACCINE Pfizer 04/23/2020 12:00:00 AM EST completed [facility] Vaccine Series Complete: YESThis Data wa s Submitted to [facility] Via [employer]. COVID-19 VACCINE Pfizer 04/02/2020 12:00:00 AM EST completed [facility] Vaccine Series Complete: NOThis Data was Submitted to [facility] Via [employer]. Medications Medication Brand Name Start Date Product Form Dose Route Admi nistrative Instructions Pharmacy Instructions Status Indications Reaction Description Data Source(s) Emergen-C Immune Plus 01/13/2021 12:00:00 AM EDT active [facility] ([facility]) Probiotic Probiotic 01/13/2021 12:00:00 AM EDT ORAL act dontrell [facility] ([facility]) Pedialyte 01/13/2021 12:00:00 AM EDT active [facility] ([facility]) Meclizine Hydrochloride 25 MG Oral Tablet Meclizine HCL 01/06/2021 12:00:00 AM EDT ORAL completed [facility] ([facility]) doxycycline hyclate 100 MG Oral Capsule DOXYCYCLINE HYCLATE 01/02/2021 12:00:00 AM EDT capsule 10 TAKE ONE CAPSULE BY MOUTH TW O TIMES A DAY TAKE ONE CAPSULE BY MOUTH TWO TIMES A DAY SOLD: 01/02/2021 [facility] 25 mg 01/02/2021 12:00:00 AM EDT tablet,chewable 30 TAKE ONE TABLET BY MOUTH EVERY 12 HOURS NEEDED FOR VERTIGO TAKE ONE TABLET BY MOUTH EVERY 12 HOURS NEEDED FOR VERTIGO SOLD: 01/02/2021 [facility] 5 mg 01/02/2021 12:00:00 AM EDT tablet 30 TAKE ONE TABLET BY MOUTH ONCE DAILY TAKE ONE TABLET BY MOUTH ONCE DAILY SOLD: 01/02/2021 [facility] 325 mg 01/02/2021 12:00:00 AM EDT tablet 90 TAKE TWO TABLETS BY MOUTH EVERY 4 HOURS NEEDED FOR MILD PAIN OR TEMP OVER 101 TAKE TWO TABLETS BY MOUTH EVERY 4 HOURS NEEDED FOR MILD PAIN OR TEMP OVER 101 SOLD: 01/02/2021 [facility] 90 mcg/actuation 01/02/2021 12:00:00 AM EDT HFA aerosol inha ler 8 INHALE 2 PUFFS BY MOUTH EVERY 4 TO 6 HOURS NEEDED FOR WHEEZING INHALE 2 PUFFS BY MOUTH EVERY 4 TO 6 HOURS NEEDED FOR WHEEZING SOLD: 01/02/2021 [facility] Amoxicillin 875 MG / Clavulanate 125 MG Oral Tablet 87 5-125 mg AMOXICILLIN/POTASSIUM CLAV 01/02/2021 12:00:00 AM EDT tablet 10 TAKE ONE TABLET BY MOUTH TWO TIMES A DAY TAKE ONE TABLET BY MOUTH TWO TIMES A DAY SOLD: 01/02/2021 [facility] Covid-19 vaccine, Unspecified 04/23/2020 12:00:00 AM EST completed [facility]) Medication administered onsite Covid-19 vaccine, Unspecified 04/02/2020 12:00:00 AM EST completed [facility]) Medication administered onsite Insurance Providers Payer name Policy type / Coverage type Policy ID Covered constitution party ID Covered constitution party's relationship to garcia Policy Garcia Plan Information [employer] [id number] SP [id number] MEDICARE [id number] SP [id number] A MEDICARE [id number] SP [id number] [employer] [id number] SP [id number] [employer] [id number] SP [id number] [employer] [id number] SP [id number] [facility] [id number] SP [id number] MEDICARE C [id number] S [id number] A [employer] Medigap Part [id number] Self Medicare Natl Gov't Servi Medicare Primary [id number] Self [id number] A [facility] [id number] SP [id number] MEDICARE [id number] SP [id number] UMR O [id number] S [id number] MEDICARE C [id number] S [id number] [facility] [id number] SP [id number] [facility] [id number] SP [id number] [employer] PPO O [id number] S [id number] Problems, Conditions, and Diagnoses Code Display Name Description Problem Type Effective Dates Data Source(s) N81.10 Cystocele Cystocele Problem 04/14/2020 12:00:00 AM ES T [facility] R33.9 Urinary retention Urinary retention Problem 04/14/2020 12:00:00 AM EST [facility] Surgeries/Procedures Procedure Description Date Indications Data Source(s) OFFICE OUTPATIENT VISIT 25 MINUTES 09/11/2020 12:00:00 AM EDT [facility] ([facility]) OFFICE OUTPATIENT VISIT 15 MINUTES 04/16/2020 12:00:00 AM EST [facility] ([facility]) Mammogram 03/26/2020 12:00:00 AM EST M EDENT ([facility]) Results ID Date Data Source [id number] 01/01/2021 05:02:00 AM EDT [facility] Name Value Range Interpretation Code Description Data Vidhya rce(s) Supporting Document(s) SARS-CoV-2 (COVID 19) NEGATIVE - SARS-CoV-2 (COVID19) [facility] This lab was ordered by [facility] a nd reported by [facility]. ID Date Data Source [id number] 12/31/2020 06:14:00 PM EDT [facility] ([facility]) Name Value Range Interpretation Code Description Data Vidhya rce(s) Supporting Document(s) Appearance, Urine RFX Laboratory test result [facility] ([facility]) Color, Urine RFX Laboratory test result [facility] ([facility]) PH,Urine RFX 6.0 units 5.0-9.0 [facility] ([facility]) Protein, Urine Auto RFX [facility] Glucose, Urine (Ua) Auto RFX Laboratory [facility]) Specific [place] Ur Auto RFX 1.005 1.002-1.[address] [facility] ([facility]) Ketone, Urine Auto RFX Laboratory test result [facility] ([facility]) Urobilinogen, Urine Auto RFX 0.2 mg/dL 0.0-2.0 [facility] Bilirubin, Urine Auto RFX Laboratory test result [facility] ([facility]) Nitrite, Urine Auto RFX Laboratory test [facility]) Leukocyte Esterase Ur Auto RFX Laboratory test result [facility] ([facility]) Blood, Urine Blood RFX Laboratory test result [facility] ([facility]) WBC, Urine Auto RFX 2 /HPF 0-3 [facility]) RBC, Urine Auto RFX 0 /HPF 0-3 [facility]) Mucus, Urine RFX Laboratory test result [facility] ([facility]) Squam Epithelial Cell Ur Aurfx 2 /HPF 0-6 [facility]) Bacteria, Urine Auto RFX Laboratory test result [facility] ([facility]) Hyaline Cast, Urine Auto RFX 0 /LPF 0-1 [facility] ID Date Data Source [id number] 12/31/2020 05:46:00 PM EDT [facility] ([facility]) Name Value Range Interpretation Code Description Data Vidhya rce(s) Supporting Document(s) Lipoprotein lipase [Enzymatic activity/volume] in Serum or P lasma 132 U/L 73-[address] [facility] ([facility]) Natriuretic peptide.B prohormone N-Terminal [Mass/volu me] in Serum or Plasma 54 pg/mL [facility] ([facility] ) Thyrotropin [Units/volume] in Serum or Plasma by Detec tion limit <= 0.05 mIU/L 3.240 uIU/ML 0.358-3.[address] [facility] ([facility] ) ID Date Data Source [id number] 12/31/2020 05:46:00 PM EDT [facility] ([facility]) Name Value Range Interpretation Code Description Data Vidhya rce(s) Supporting Document(s) Blood Urea Nitrogen 17 mg/dL 7-18 [facility] ([facility]) Glucose, Fasting 100 mg/dL 70-100 [facility] ([facility]) Sodium Level 144 meq/L 136-145 [facility] ([facility]) Glomerular Filtration Rate Laboratory [facility]) <content>Units are mL/min/1.73 m2</content>
<content></content>
<content>Chronic Kidney Disease Staging per NKF:</content>
<content></content>
<content>Stage I & II GFR >=60 Normal to Mildly Decreased</content>
<content>Stage III GFR 30- 59 Moderately Decreased</content>
<content>Stage IV GFR 15-29 Severely Decreased</content>
<content>Stage V GFR <15 Very Little GFR Left</content>
<content>ESRD GFR <15 on STRUCTURAL ANALYSIS ENGINEER</content>
<content></content> Creatinine For GFR 0.68 mg/dL 0.55-1.30 [facility] ([facility]) Potassium Serum 3.7 meq/L 3.5-5.1 [facility] ([facility]) Chloride Level 107 meq/L 98-107 [facility] ([facility]) Carbon Dioxide Level 30 meq/L 21-32 [facility] ([facility]) Anion Gap 7 meq/L 8-16 [facility] Calcium Level 8.9 mg/dL 8.8-10.2 [facility] ([facility]) ID Date Data Source [id number] 12/31/2020 05:46:00 PM EDT [facility] ([facility]) Name Value Range Interpretation Code Description Data Vidhya rce(s) Supporting Document(s) Ast/Sgot 22 U/L 7-37 [facility]) Alkaline Phosphatase 71 U/L 45-117 [facility] ([facility]) Alt/SGPT 41 U/L 12-78 [facility] Total Protein 7.4 GM/DL 6.4-8.2 [facility]) Bilirubin,Total 0.5 mg/dL 0.2-1.0 [facility]) Bilirubin,Direct 0.1 mg/dL 0.0-0.[address] [facility] ([facility]) Albumin 3.8 GM/DL 3.2-5.[address] [facility] ([facility]) Albumin/Globulin Ratio 1.1 1.2-2.[address] [facility] ([facility]) ID Date Data Source [id number] 12/31/2020 05:46:00 PM EDT [facility] Name Value Range Interpretation Code Description Data Vidhya rce(s) Supporting Document(s) CK-MB Value Mass 1.7 ng/mL [facility] CPK Creatine Phosphokinase 108 U/L 26-192 [facility] ENT ([facility]) Troponin I Laboratory test result [facility] ([facility]) <content>Troponin I Reference Interval f or Siemens [place] LOCI:</content>
<content></content>
<content>99th Percentile= 0.00-0.045 ng/ml</content>
<content></content>
<content>Risk Stratification:</content>
<content><= 0.10 ng/ml Decreased Risk for Adverse Clinical</content>
<content>Events.</content>
<content>0.10-1.50 ng/ml Increased Risk for Adverse Clinical</content>
<content>Events. Evaluation of additional</content>
<content>criterion and/or repeat testing in 2-6</content>
<content>hours is suggested to rule out myocardial</content>
<content>damage.</content>
<content>>= 1.50 ng/ml Indicative of Myocardial Injury.</content>
<content></content> MB/CK Relative Index 1.[address] [facility] ( [facility]) <content>DIAGNOSIS CRITERIA</content>
<content>MMB ng/ml Relative Index (RI)</content>
<content>NON-AMI < or = 5 N/A</content>
<content>HATCH ZONE > 5 < or = 4</content>
<content>AMI > 5 > 4</content>
<content></content> ID Date Data Source [id number] 12/31/2020 05:46:00 PM EDT [facility] ([facility]) Name Value Range Interpretation Code Description Data Vidhya rce(s) Supporting Document(s) White Blood Count 11.0 10 4.0-10.0 [facility] ([facility]) Red Blood Count 5.01 10 4.00-5.40 [facility] ([facility]) Hemoglobin 15.2 g/dL 12.0-15.5 [facility] ([facility]) Mean Corpuscular Volume 92.6 fl 80.0-96.0 [facility] ([facility]) Mean Corpuscular Hemoglobin 30.3 pg 27.0-33.0 ME DENT ([facility]) Hematocrit 46.4 % 36.0-47.0 [facility] ([facility]) Mean Corpuscular HGB Conc 32.8 g/dL 32.0-36.5 MEDE NT ([facility]) Neutrophils % 70.5 % 36.0-66.0 [facility] ([facility]) Platelet Count, Automated 303 10 150-450 MEDE NT ([facility]) Red Cell Distribution Width 12.8 % 11.5-14.5 ME [facility]ENT ([facility]) Lymph % 20.9 % 24.0-44.0 [facility]) Gray % 6.4 % 2.0-8.0 [facility]) Baso % 0.5 % 0.0-1.0 [facility]) Immature Granulocyte % 0.5 % 0-3.0 [facility] ([facility]) Eos % 1.2 % 0.0-3.0 [facility] Neutrophils # 7.8 10 1.5-8.5 [facility] ([facility]) Nucleated Red Blood Cell % 0.0 % 0-0 [facility] ([facility]) Lymph # 2.3 10 1.5-5.0 [facility] Gray # 0.7 10 0.0-0.8 [facility] Eos # 0.1 10 0.0-0.5 [facility] Baso # 0.1 10 0.0-0.2 [facility]) ID Date Data Source [id number] 09/11/2020 10:48:00 AM EDT [facility] ([facility]) Name Value Range Interpretation Code Description Data Vidhya rce(s) Supporting Document(s) Glucose [Mass/volume] in Serum or Plasma 138 mg/dL 74-99 [facility] ([facility]) 100-125 mg/dL PRE-DIABETES/FASTING >126 mg/dL DIABETES/FASTING Urea nitrogen [Mass/volume] in Serum or Plasma 19 mg/dL 7-18 [facility] ([facility]) Sodium [Moles/volume] in Serum or Plasma 143 meq/L 136-145 [facility] ([facility]) Creatinine 0.8 mg/dL 0.6-1.3 [facility] ([facility]) Potassium [Moles/volume] in Serum or Plasma 3.8 meq/L 3.5-5.1 [facility] ([facility]) Chloride [Moles/volume] in Serum or Plasma 105 meq/L 98-107 [facility] ([facility]) Calcium [Mass/volume] in Serum or Plasma 9.3 mg/dL 8.5-10.1 [facility] ([facility]) Carbon dioxide, total [Moles/volume] in Serum or Plasma 29 meq/L 21 -32 [facility] ([facility]) Aspartate aminotransferase [Enzymatic activity/volume] in Serum or Plasma 16 U/L 15-37 [facility] ([facility] ) Total Bilirubin 0.8 mg/dL 0.2-1.0 [facility] Alkaline phosphatase isoenzyme [Units/volume] in Serum or Pl asma 72 mg/dL 46-116 [facility]) Proteinase 3 Ab [Units/volume] in Serum 7.2 g/dL 6.4-8.[address] [facility] ([facility]) Alanine aminotransferase [Enzymatic activity/volume] in Seru m or Plasma 29 U/L 12-78 [facility] Albumin [Mass/volume] in Serum or Plasma 3.9 g/dL 3.4-5.[address] [facility] ([facility]) Glomerular filtration rate/1.73 sq M pre dicted among non-blacks [Volume Rate/Area] in Serum or Plasma by Creatinine-based formula (MDRD) Laboratory test result [facility] ([facility] ) Glomerular filtration rate/1.73 sq M pre dicted among blacks [Volume Rate/Area] in Serum or Plasma by Creatinine-based formula (MDRD) Laboratory test result [facility] ([facility]) <content>CHRONIC KIDNEY DISEASE STAGING PER NKF</content>
<content></content>
<content>STAGE I & II GFR >= 60 NORMAL TO MILDLY DECREASED</content>
<content>STAGE III GFR 30-59 MODERATELY DECREASED</content>
<content>STAGE IV GFR 15-29 SEVERELY DECREASED</content>
<content>STAGE V GFR <15 VERY LITTLE GFR LEFT</content>
<content>ESRD GFR <15 ON STRUCTURAL ANALYSIS ENGINEER</content>
<content></content> A/G Ratio 1.18 CALC 1.00-1.[address] [facility] ([facility]) ID Date Data Source [id number] 09/11/2020 10:48:00 AM EDT [facility] ([facility]) Name Value Range Interpretation Code Description Data Vidhya rce(s) Supporting Document(s) Hemoglobin A1c/Hemoglobin.total in Blood 6.4 % [facility] ([facility]) Lab Result Notes: Pre-Diabetes 5.7 - 6.4 % Diabetes = or > 6.5% Glucose mean value [Mass/volume] in Blood Estimated fr om glycated hemoglobin 137 mg/dL 60-110 [facility] ([facility] ) ID Date Data Source [id number] 09/11/2020 10:48:00 AM EDT [facility] ([facility]) Name Value Range Interpretation Code Description Data Vidhya rce(s) Supporting Document(s) Hemoglobin [Mass/volume] in Blood 15.0 g/dL 12.0-18.0 [facility] ([facility]) Leukocytes [#/volume] in Blood by Automated count 8.1 x10*3/UL 4.1-10 .9 [facility] ([facility]) Erythrocytes [#/volume] in Blood by Automated count 5.02 x10*6/UL 4.2 0-6.30 [facility] ([facility]) Hematocrit [Volume Fraction] of Blood by Automated count 44.5 % 3 7.0-51.0 [facility] ([facility]) MCH 29.9 pg 26.0-32.0 [facility]) MCV 88.5 fL 80.0-97.0 [facility]) Platelets [#/volume] in Blood by Automated count 320 x10*3/UL 140-440 [facility]) Erythrocyte distribution width [Ratio] by Automated count 12.9 % 11.6-13.7 [facility] ([facility]) MCHC 33.8 g/dL 31.0-38.0 [facility]) MPV 7.4 FL 7.8-11.0 [facility]) Lymph % 24.0 % 10.0-58.5 [facility]) Mid % 6.1 % 1.7-9.3 [facility] Lymph # 1.9 x10*3/UL 0.6-4.1 [facility] ([facility]) Mid # 0.5 x10*3/UL 0.1-0.6 [facility] ([facility]) Neut % 69.9 % 37.0-92.0 [facility] Neut # 5.7 x10*3/UL 2.0-7.8 [facility] ([facility]) ID Date Data Source [id number] 03/04/2020 10:45:00 AM EST [facility] ([facility]) Name Value Range Interpretation Code Description Data Vidhya rce(s) Supporting Document(s) Glucose [Mass/volume] in Serum or Plasma 101 mg/dL 74-99 [facility] [facility] 100-125 mg/dL PRE-DIABETES/FASTING >126 mg/dL DIABETES/FASTING Urea nitrogen [Mass/volume] in Serum or Plasma 18 mg/dL 7-18 [facility] ([facility]) Sodium [Moles/volume] in Serum or Plasma 145 meq/L 136-145 [facility] ([facility]) Creatinine 0.7 mg/dL 0.6-1.3 [facility] Chloride [Moles/volume] in Serum or Plasma 106 meq/L 98-107 [facility] ([facility]) Carbon dioxide, total [Moles/volume] in Serum or Plasma 32 meq/L 21 -32 [facility] ([facility]) Potassium [Moles/volume] in Serum or Plasma 4.2 meq/L 3.5-5.1 [facility] ([facility]) Calcium [Mass/volume] in Serum or Plasma 9.1 mg/dL 8.5-10.1 [facility] ([facility]) Alkaline phosphatase isoenzyme [Units/volume] in Serum or Pl asma 73 mg/dL 46-116 [facility] ([facility]) Total Bilirubin 0.5 mg/dL 0.2-1.0 [facility] ([facility]) Alanine aminotransferase [Enzymatic activity/volume] in Seru m or Plasma 30 U/L 12-78 [facility] ([facility]) Aspartate aminotransferase [Enzymatic activity/volume] in Serum or Plasma 16 U/L 15-37 [facility] ([facility] ) Proteinase 3 Ab [Units/volume] in Serum 7.0 g/dL 6.4-8.2 [facility] ([facility]) Albumin [Mass/volume] in Serum or Plasma 3.8 g/dL 3.4-5.[address] [facility] ([facility]) Glomerular filtration rate/1.73 sq M pre dicted among non-blacks [Volume Rate/Area] in Serum or Plasma by Creatinine-based formula (MDRD) Laboratory test result [facility] ([facility] ) Glomerular filtration rate/1.73 sq M pre dicted among blacks [Volume Rate/Area] in Serum or Plasma by Creatinine-based formula (MDRD) [facility] <content>CHRONIC KIDNEY DISEASE STAGING PER NKF</content>
<content></content>
<content>STAGE I & II GFR >= 60 NORMAL TO MILDLY DECREASED</content>
<content>STAGE III GFR 30-59 MODERATELY DECREASED</content>
<content>STAGE IV GFR 15-29 SEVERELY DECREASED</content>
<content>STAGE V GFR <15 VERY LITTLE GFR LEFT</content>
<content>ESRD GFR <15 ON STRUCTURAL ANALYSIS ENGINEER</content>
<content></content> A/G Ratio 1.19 CALC 1.00-1.[address] [facility] ID Date Data Source [id number] 03/04/2020 10:45:00 AM EST [facility] ([facility]) Name Value Range Interpretation Code Description Data Vidhya rce(s) Supporting Document(s) Hemoglobin A1c/Hemoglobin.total in Blood 6.0 % [facility] ([facility]) Lab Result Notes: Pre-Diabetes 5.7 - 6.4 % Diabetes = or > 6.5% Glucose mean value [Mass/volume] in Blood Estimated fr om glycated hemoglobin 125 mg/dL 60-[address] [facility] ([facility] ) ID Date Data Source [id number] 03/04/2020 10:45:00 AM EST [facility] ([facility]) Name Value Range Interpretation Code Description Data Vidhya rce(s) Supporting Document(s) Hemoglobin [Mass/volume] in Blood 14.4 g/dL 12.0-18.[address] [facility] ([facility]) Erythrocytes [#/volume] in Blood by Automated count 4.71 x10*6/UL 4.2 0-6.30 [facility] ([facility]) Leukocytes [#/volume] in Blood by Automated count 8.7 x10*3/UL 4.1-10 .9 [facility] ([facility]) MCV 86.1 fL 80.0-97.0 [facility] ([facility]) Hematocrit [Volume Fraction] of Blood by Automated count 40.6 % 3 7.0-51.0 [facility] ([facility]) MCH 30.7 pg 26.0-32.0 [facility] ([facility]) Erythrocyte distribution width [Ratio] by Automated count 12.5 % 11.6-13.7 [facility] ([facility]) MCHC 35.6 g/dL 31.0-38.0 [facility] ([facility]) MPV 7.2 FL 7.8-11.0 [facility] ([facility]) Platelets [#/volume] in Blood by Automated count 299 x10*3/UL 140-440 [facility] ([facility]) Lymph % 25.9 % 10.0-58.5 [facility] ([facility]) Mid % 5.9 % 1.7-9.3 [facility] ([facility]) Neut % 68.2 % 37.0-92.0 [facility] ([facility]) Mid # 0.6 x10*3/UL 0.1-0.6 [facility] ([facility]) Neut # 5.9 x10*3/UL 2.0-7.8 [facility] ([facility]) Lymph # 2.2 x10*3/UL 0.6-4.1 [facility] ([facility]) ID Date Data Source [id number] 03/04/2020 10:45:00 AM EST [facility] ([facility]) Name Value Range Interpretation Code Description Data Vidhya rce(s) Supporting Document(s) Hemoglobin A1c/Hemoglobin.total in Blood Laboratory test result [facility] ([facility]) Procedure Social History Code Duration Value Status Description Data Source(s ) Smoking 12/02/2020 12:00:00 AM EDT Former Smoker completed Former Smoker [facility] Smoking 06/02/2020 12:00:00 AM EDT Former Smoker completed Former Smoker eCW1 ([facility]) Smoking 04/24/2020 12:00:00 AM EST Former Smoker completed Former Smoker eCW1 ([facility]) Smoking 04/24/2020 12:00:00 AM EST Former Smoker completed Former Smoker eCW1 ([facility]) Smoking 04/14/2020 12:00:00 AM EST Former Smoker completed Former Smoker eCW1 ([facility]) Vital Signs ID Date Data Source UNK Name Value Range Interpretation Code Description Data Source(s) Systolic blood pressure 122 mm[Hg] 122 mm[Hg] [facility] Diastolic blood pressure 74 mm[Hg] 74 mm[Hg] [facility] ([facility]) Heart rate 90 /min 90 /min [facility] Body height 62 [in_i] 62 [in_i] [facility] ([facility]) 5'2" Body weight 153.00 [lb_av] 153.00 [lb_av] [facility] T ([facility]) Oxygen saturation in Arterial blood by Pulse oximetry 99 % 99 % [facility] ([facility]) Body mass index (BMI) [Ratio] 28.0 kg/m2 28.0 k g/m2 [facility] ([facility]) Systolic blood pressure 126 mm[Hg] 126 mm[Hg] [facility] ([facility]) Systolic blood pressure--standing 90 mm[Hg] 90 mm[Hg] [facility] Diastolic blood pressure--standing 58 mm[Hg] 5 8 mm[Hg] [facility]) Heart rate 96 /min 96 /min [facility] ([facility]) Body height 62 [in_i] 62 [in_i] [facility] ([facility]) 5'2" Body weight 153.00 [lb_av] 153.00 [lb_av] [facility] T ([facility]) Oxygen saturation in Arterial blood by Pulse oximetry 97 % 97 % [facility] ([facility]) Body mass index (BMI) [Ratio] 28.0 kg/m2 28.0 k g/m2 [facility] ([facility]) Diastolic blood pressure 68 mm[Hg] 68 mm[Hg] [facility] ([facility]) Body weight 154.2 [lb_av] 154.2 [lb_av] [facility] Body weight 69.94 kg 69.94 kg eCW1 ([facility]) Body height 62 [in_i] 62 [in_i] eCW1 ([facility]) Body mass index (BMI) [Ratio] 28.2 kg/m2 28.2 k g/m2 [facility] ([facility] Systolic blood pressure 144 mm[Hg] 144 mm[Hg] e CW1 ([facility]) Diastolic blood pressure 82 mm[Hg] 82 mm[Hg] eCW1 ([facility]) Body height 62 [in_i] 62 [in_i] [facility] ([facility]) 5'2" Body weight 153.50 [lb_av] 153.50 [lb_av] [facility] T ([facility]) Oxygen saturation in Arterial blood by Pulse oximetry 92 % 92 % [facility] ([facility]) Air Body mass index (BMI) [Ratio] 28.1 kg/m2 28.1 k g/m2 [facility] ([facility]) Systolic blood pressure 124 mm[Hg] 124 mm[Hg] [facility] ([facility]) Diastolic blood pressure 68 mm[Hg] 68 mm[Hg] [facility] ([facility]) Heart rate 80 /min 80 /min [facility] ([facility]) Body weight 150 [lb_av] 150 [lb_av] W1 (Counts include 234 beds at the [facility]) Body height 62 [in_i] 62 [in_i] eCW1 ([facility]) Body mass index (BMI) [Ratio] 27.43 kg/m2 27.43 kg/m2 [facility] Diastolic blood pressure 76 mm[Hg] 76 mm[Hg] eCW1 ([facility]) Systolic blood pressure 140 mm[Hg] 140 mm[Hg] e CW1 ([facility]) Body weight 150.4 [lb_av] 150.4 [lb_av] eCW1 [facility] Body weight 68.22 kg 68.22 kg eCW1 ([facility]) Body height 62 [in_i] 62 [in_i] eCW1 ([facility]) Body mass index (BMI) [Ratio] 27.51 kg/m2 27.51 kg/m2 eCW1 ([facility]) Systolic blood pressure 132 mm[Hg] 132 mm[Hg] e CW1 ([facility]) Diastolic blood pressure 76 mm[Hg] 76 mm[Hg] eCW1 ([facility]) Systolic blood pressure 122 mm[Hg] 122 mm[Hg] M [facility] ([facility]) Diastolic blood pressure 70 mm[Hg] 70 mm[Hg] [facility] ([facility]) Body height 62 [in_i] 62 [in_i] [facility] ([facility]) 5'2" Body weight 147.00 [lb_av] 147.00 [lb_av] [facility] T ([facility]) Body mass index (BMI) [Ratio] 26.9 kg/m2 26.9 k g/m2 [facility] ([facility]) Body weight 145 [lb_av] 145 [lb_av] eCW1 (Counts include 234 beds at the [facility]) Body height 62 [in_i] 62 [in_i] eCW1 ([facility]) Body mass index (BMI) [Ratio] 26.52 kg/m2 26.52 kg/m2 eCW1 ([facility] Heart rate 74 /min 74 /min eCW1 ([facility]) Respiratory rate 18 /min 18 /min eCW1 ([facility]) Systolic blood pressure 122 mm[Hg] 122 mm[Hg] e CW1 ([facility]) Diastolic blood pressure 78 mm[Hg] 78 mm[Hg] eCW1 ([facility]) Diastolic blood pressure 78 mm[Hg] 78 mm[Hg] [facility] ([facility]) Body height 62 [in_i] 62 [in_i] [facility] ([facility]) 5'2" Heart rate 80 /min 80 /min [facility] ([facility]) Systolic blood pressure 124 mm[Hg] 124 mm[Hg] M EDRUFINO ([facility]) Body mass index (BMI) [Ratio] 26.9 kg/m2 26.9 k g/m2 [facility] ([facility]) Body weight 147.00 [lb_av] 147.00 [lb_av] DORINDAEN T ([facility])
[2021-02-03 15:26] LABS: CK-MB VALUE MASS < 1.0 NG/ML (<3.6); CPK CREATINE PHOSPHOKINASE 101 U/L (26-192); MB/CK RELATIVE INDEX 0.99 (< OR =4); TROPONIN I < 0.02 NG/ML (< 0.10)
[2021-02-03 15:28] LABS: BASO # 0.1 10^3/uL (0.0-0.2); BASO % 0.6 % (0.0-1.0); EOS # 0.2 10^3/uL (0.0-0.5); EOS % 1.6 % (0.0-3.0); HEMATOCRIT 46.5 % (36.0-47.0); HEMOGLOBIN 15.2 g/dl (12.0-15.5); LYMPH # 2.1 10^3/uL (1.5-5.0); LYMPH % 22.2 % (24.0-44.0); MEAN CORPUSCULAR HEMOGLOBIN 30.5 pg (27.0-33.0); MEAN CORPUSCULAR HGB CONC 32.7 g/dl (32.0-36.5); MEAN CORPUSCULAR VOLUME 93.2 fl (80.0-96.0); MONO # 0.5 10^3/uL (0.0-0.8); MONO % 5.6 % (2.0-8.0); NEUTROPHILS # 6.6 10^3/uL (1.5-8.5); NEUTROPHILS % 69.7 % (36.0-66.0); PLATELET COUNT, AUTOMATED 314 10^3/uL (150-450); RED BLOOD COUNT 4.99 10^6/uL (4.00-5.40); WHITE BLOOD COUNT 9.5 10^3/uL (4.0-10.0)
[2021-02-03 15:35] LABS: ALBUMIN 3.8 GM/DL (3.2-5.2); ALT/SGPT 41 U/L (12-78); BILIRUBIN,DIRECT < 0.1 MG/DL (0.0-0.2); BILIRUBIN,TOTAL 0.5 MG/DL (0.2-1.0); BLOOD UREA NITROGEN 17 MG/DL (7-18); CALCIUM LEVEL 9.4 MG/DL (8.8-10.2); CARBON DIOXIDE LEVEL 22 MEQ/L (21-32); CHLORIDE LEVEL 112 MEQ/L (98-107); CREATININE FOR GFR 0.73 MG/DL (0.55-1.30); GLOMERULAR FILTRATION RATE > 60.0 (>32); GLUCOSE, FASTING 108 MG/DL (70-100); LIPASE 229 U/L (73-393); POTASSIUM SERUM 5.1 MEQ/L (3.5-5.1); SODIUM LEVEL 142 MEQ/L (136-145); TOTAL PROTEIN 7.6 GM/DL (6.4-8.2)
[2021-02-03 15:50] VITALS: BP 168/84
[2021-02-03] MEDS ORDERED: LIDO5DIS41 TOP ×2 (16:21→16:29)
[2021-02-03] MEDS ORDERED: **NOTE PATIENT COMMENT** MISC XX SCH (21:00)
--- NOTE | 2021-02-06 07:38 | ECGEPIP ---
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
== END 2021-02-03 16:30 | disposition home or self-care (01) ==
LOC: EDBD 13:07 → M ED 13:07
DX: M54.9 Dorsalgia, unspecified (principal); Z86.73 Personal history of transient ischemic attack (TIA), and cerebral infarction without residual deficits; F03.90 Unspecified dementia, unspecified severity, without behavioral disturbance, psychotic disturbance, mood disturbance, and anxiety; H54.8 Legal blindness, as defined in USA; Z79.82 Long term (current) use of aspirin; Z79.899 Other long term (current) drug therapy

== ENCOUNTER 2021-02-24 15:34 | Emergency (ER) | payer MEDICARE, OTHER ==
[~2021-02-24] VITALS: Ht 157.5 cm; Wt 68.2 kg
[~2021-02-24 15:34] MED LIST changes: +LIDO5DIS41 TOP; -LISI-898 PO; +LISI5TAB11 PO
[2021-02-24 16:21] LABS: BASO # 0.1 10^3/uL (0.0-0.2); BASO % 0.7 % (0.0-1.0); EOS # 0.1 10^3/uL (0.0-0.5); EOS % 1.3 % (0.0-3.0); HEMATOCRIT 41.8 % (36.0-47.0); LYMPH # 2.1 10^3/uL (1.5-5.0); LYMPH % 21.1 % (24.0-44.0); MEAN CORPUSCULAR HEMOGLOBIN 30.6 pg (27.0-33.0); MEAN CORPUSCULAR HGB CONC 33.5 g/dl (32.0-36.5); MEAN CORPUSCULAR VOLUME 91.5 fl (80.0-96.0); MONO # 0.6 10^3/uL (0.0-0.8); NEUTROPHILS % 70.7 % (36.0-66.0); PLATELET COUNT, AUTOMATED 305 10^3/uL (150-450); RED BLOOD COUNT 4.57 10^6/uL (4.00-5.40); WHITE BLOOD COUNT 9.8 10^3/uL (4.0-10.0)
[2021-02-24 16:44] LABS: INR 0.97; PROTHROMBIN TIME 13.3 SECONDS (12.7-14.5)
[2021-02-24 17:03] LABS: ALBUMIN 3.6 GM/DL (3.2-5.2); ALT/SGPT 36 U/L (12-78); BILIRUBIN,DIRECT 0.1 MG/DL (0.0-0.2); BILIRUBIN,TOTAL 0.3 MG/DL (0.2-1.0); BLOOD UREA NITROGEN 14 MG/DL (7-18); CALCIUM LEVEL 9.2 MG/DL (8.8-10.2); CARBON DIOXIDE LEVEL 30 MEQ/L (21-32); CHLORIDE LEVEL 109 MEQ/L (98-107); CREATININE FOR GFR 0.63 MG/DL (0.55-1.30); GLOMERULAR FILTRATION RATE > 60.0 (>32); GLUCOSE, FASTING 114 MG/DL (70-100); NT-PRO BNP 100 PG/ML (<450); SODIUM LEVEL 144 MEQ/L (136-145); TOTAL PROTEIN 7.1 GM/DL (6.4-8.2)
[2021-02-24 17:10] LABS: ERYTHROCYTE SEDIMENTATION RATE 20 mm/hr (0-30)
[2021-02-24 18:45] VITALS: BP 174/84
== END 2021-02-24 19:06 | disposition home or self-care (01) ==
LOC: M ED 15:34 → EDBD 15:34 → M ED 19:06
DX: I10 Essential (primary) hypertension (principal); R07.89 Other chest pain; R06.02 Shortness of breath; E78.5 Hyperlipidemia, unspecified; F03.90 Unspecified dementia, unspecified severity, without behavioral disturbance, psychotic disturbance, mood disturbance, and anxiety; Z79.82 Long term (current) use of aspirin; Z79.899 Other long term (current) drug therapy

== ENCOUNTER → 2021-05-21 | Outpatient (REF) | payer MEDICARE, OTHER ==
[2021-05-21 17:20] LABS: APPEARANCE, URINE CLEAR (CLEAR); BACTERIA, URINE AUTO NEGATIVE (NEGATIVE); BILIRUBIN, URINE AUTO NEGATIVE (NEGATIVE); BLOOD, URINE BLOOD NEGATIVE (NEGATIVE); COLOR, URINE STRAW (YELLOW); GLUCOSE, URINE (UA) AUTO NEGATIVE (NEGATIVE); KETONE, URINE AUTO NEGATIVE (NEGATIVE); LEUKOCYTE ESTERASE, URINE AUTO NEGATIVE (NEGATIVE); NITRITE, URINE AUTO NEGATIVE (NEGATIVE); PROTEIN, URINE AUTO NEGATIVE (NEGATIVE); RBC, URINE AUTO 1 /HPF (0-3); SPECIFIC GRAVITY URINE AUTO 1.008 (1.002-1.035); SQUAMOUS EPITHELIAL CELL UR AU 2 /HPF (0-6); UROBILINOGEN, URINE AUTO 0.2 mg/dL (0.0-2.0); WBC, URINE AUTO 0 /HPF (0-3)
== END ==
LOC: M SMT 16:56
PROVIDERS: ATTEND Physician Assistant
DX: R35.0 Frequency of micturition (principal)

== ENCOUNTER → 2021-06-30 | Outpatient (CLI) | payer MEDICARE, OTHER | LOC: M WHC 09:34 | PROVIDERS: ATTEND Internal Medicine | DX: Z12.31 Encounter for screening mammogram for malignant neoplasm of breast (principal); Z80.3 Family history of malignant neoplasm of breast; Z80.41 Family history of malignant neoplasm of ovary ==

== ENCOUNTER → 2022-07-14 | Outpatient (CLI) | payer MEDICARE, OTHER | LOC: M WHC 11:36 | PROVIDERS: ATTEND Internal Medicine | DX: Z12.31 Encounter for screening mammogram for malignant neoplasm of breast (principal) ==

== ENCOUNTER → 2022-11-10 | Outpatient (CLI) | payer MEDICARE, OTHER | LOC: M WUC 14:03 | PROVIDERS: ATTEND Nurse Practitioner Family | DX: M25.511 Pain in right shoulder (principal); M79.621 Pain in right upper arm; M19.011 Primary osteoarthritis, right shoulder ==

== ENCOUNTER → 2023-01-12 | Outpatient (CLI) | payer MEDICARE, OTHER | LOC: M WUC 14:14 | PROVIDERS: ATTEND Nurse Practitioner Family | DX: R06.02 Shortness of breath (principal) ==

== ENCOUNTER → 2023-03-17 | Outpatient (REF) | payer MEDICARE, OTHER ==
[2023-03-17 17:07] LABS: FOLATE 15.5 NG/ML (>5.4)
== END ==
LOC: M LAB REF 16:36
PROVIDERS: ATTEND Internal Medicine
DX: Z13.9 Encounter for screening, unspecified (principal); F02.80 Dementia in other diseases classified elsewhere, unspecified severity, without behavioral disturbance, psychotic disturbance, mood disturbance, and anxiety

== ENCOUNTER → 2023-07-21 | Outpatient (CLI) | payer MEDICARE, OTHER | LOC: M WHC 11:28 | PROVIDERS: ATTEND Internal Medicine | DX: Z12.31 Encounter for screening mammogram for malignant neoplasm of breast (principal) ==